=== PATIENT | male | born 1940 | race Caucasian/White ===

== ENCOUNTER 2016-11-05 10:42 | Emergency (ER) | payer OTHER ==
[2016-11-05 10:58] VITALS: TEMP 98.4
[2016-11-05 13:08] LABS: % IMMATURE GRANULYOCYTES 0.4 % (0.0-1.1); ABSOLUTE IMMATURE GRANULOCYTES 0.03 10^3/uL (0.00-0.10); ADD DIFF? NO; ADD MORPH? NO; ADD SCAN? NO; ATYPICAL LYMPHOCYTE FLAG 10 (0-99); FRAGMENT RBC FLAG 0 (0-99); HEMATOCRIT 45.4 % (40.0-51.0); HEMOGLOBIN 16.1 g/dL (13.7-17.5); LEFT SHIFT FLG 0 (0-99); LIPEMIA HEMOLYSIS FLAG 90 (0-99); MEAN CELL HEMOGLOBIN 35.9 pg (27.9-34.1); MEAN CELL HEMOGLOBIN CONCENTR. 35.5 g/dL (32.4-36.7); MEAN CELL VOLUME 101.3 fL (81.5-99.8); MEAN PLATELET VOLUME 10.1 fL (8.7-11.7); PLATELET CLUMPS FLAG 0 (0-99); PLATELET COUNT 157 10^3/uL (150-400); RED BLOOD CELL COUNT 4.48 10^6/uL (4.40-6.38); RED CELL DISTRIBUTION WIDTH 12.4 % (11.5-15.2)
[2016-11-05] MEDS ORDERED: IOPAMIDOL (ISOVUE-300) 100 ML BTL IV ONE (13:10)
[2016-11-05 13:33] LABS: ALANINE AMINOTRANSFERASE 33 IU/L (21-72); ALBUMIN 4.6 g/dL (3.5-5.0); ALKALINE PHOSPHATASE 62 IU/L (38-126); ANION GAP 14 mEq/L (8-16); ASPARTATE AMINOTRANSFERASE 28 IU/L (17-59); BILIRUBIN,TOTAL 1.1 mg/dL (0.1-1.4); BILIRUBIN-CONJUGATED 0.4 mg/dL (0.0-0.5); BILIRUBIN-UNCONJUGATED 0.7 mg/dL (0.0-1.1); CALCIUM 9.8 mg/dL (8.5-10.4); CARBON DIOXIDE 22 mEq/l (22-31); CHLORIDE 107 mEq/L (97-110); CREATININE 0.8 mg/dL (0.7-1.3); GLOMERULAR FILTRATION RATE > 60; GLUCOSE 105 mg/dL (70-100); POTASSIUM 3.9 mEq/L (3.5-5.2); SODIUM 143 mEq/L (134-144); TOTAL PROTEIN 7.5 g/dL (6.3-8.2)
[2016-11-05 13:55] VITALS: BP 130/92; PULSE 94; RESP 18; O2SAT 96
--- NOTE | 2016-11-05 13:56 | EDPHY ---
H & P Time Seen by Provider: 11/05/16 12:25 HPI/ROS: CHIEF COMPLAINT: Right flank pain HISTORY OF PRESENT ILLNESS: 76-year-old male presents to the emergency department by private vehicle complaining of pain in his right groin and right flank for the last 2 weeks. Patient saw his primary care provider and was diagnosed with inguinal hernia. He has a scheduled appointment with Dr. Antony Wilde in 2 weeks. His was concerned because his pain was getting worse and was now radiating up into his right upper abdomen and right flank area. Denies urinary symptoms. Denies hematuria. No nausea or vomiting. No chest pain or difficulty breathing. Denies any other abdominal pain. Denies head injury. Denies pain in upper or lower extremities. REVIEW OF SYSTEMS: Constitutional: No fever, no chills. Eyes: No double or blurry vision. ENT: No sore throat. Respiratory: No cough, no shortness of breath. Cardiac: No chest pain. Gastrointestinal: No abdominal pain, vomiting or diarrhea. Genitourinary: No dysuria. Musculoskeletal: Flank pain as above. No neck pain. Skin: No rashes. Neurological: No headache. Past Medical/Surgical History: Orthopedic surgeries, hypertension, appendectomy, hyperlipidemia, kidney stones , atrial flutter, bladder cancer Social History: Smoking Status: Former smoker Physical Exam: General Appearance: Alert, no distress. Vital signs are stable. No apparent distress. Eyes: Pupils equal and round. Extraocular motions are all intact. ENT: Mouth: Mucous membranes moist. Respiratory: No wheezing, rhonchi, or rales, lungs are clear to auscultation. Cardiovascular: Regular rate and rhythm. Gastrointestinal: Abdomen is soft. He has tenderness with palpation in the right lower quadrant. Also has pain with palpation in the right lateral aspect of the abdomen into the right flank. Positive CVA tenderness on the right. Genitourinary: Circumcised penis. Possible small right inguinal hernia palpated. No signs of incarceration. Left side is normal. Exam performed with at bedside. Neurological: Alert and oriented x 3, cranial nerves II through XII grossly intact Skin: Warm and dry, no rashes. Musculoskeletal: Nontender to palpate along the cervical, thoracic or lumbar spine. Neck is supple. Extremities: Full range of motion and no peripheral edema. Psychiatric: Patient is oriented X 3, there is no agitation. Constitutional: Initial Vital Signs Temperature (C) 36.9 C 11/05/16 10:55 Heart Rate 98 11/05/16 10:55 Respiratory Rate 17 11/05/16 10:55 Blood Pressure 148/100 H 11/05/16 10:55 O2 Sat (%) 94 11/05/16 10:55 O2 Delivery Mode Room Air Allergies/Adverse Reactions: BCG Allergy (Intermediate, Uncoded 11/26/14 14:53) joints swell Home Medications: Medication Instructions Recorded Acetaminophen [Tylenol 325mg (*)] 650 mg PO BID 10/08/14 Herbals/Supplements -Info Only 1 ea PO DAILY 10/08/14 Omeprazole [Prilosec 20 mg] 20 mg PO DAILY 10/08/14 Magnesium Oxide 250 mg PO DAILY 11/06/14 Atorvastatin Calcium [Lipitor 10 10 mg PO DAILY 02/01/15 mg (*)] IRON,CARBONYL [IRON] 45 mg PO DAILY 02/01/15 Losartan/Hydrochlorothiazide 1 tab PO DAILY 02/01/15 [Losartan-Hctz 100-25 mg Tab] Ascorbic Acid [Vitamin C 500 mg 1,000 mg PO DAILY #0 tab 02/02/15 (*)] Aspirin [Aspirin 81mg (*)] 81 mg PO DAILY #0 tab 02/02/15 Metoprolol Succinate 11/05/16 Medical Decision Making - Diagnostics Imaging: CT imaging of the abdomen and pelvis: 1. Fat-containing right inguinal hernia. 2. Diverticulosis coli without diverticulitis or bowel obstruction. 3. Cholelithiasis without biliary ductal dilation. 4. Atherosclerotic aorta without aneurysm. 5. No evidence of diverticulitis, bowel obstruction, or urinary tract obstruction. 6. Enlarged partially calcified prostate gland. This was reported to me by Dr. Toussaint. ED Course/Re-evaluation: 76-year-old male presents with right flank pain and right-sided abdominal pain. His is concerned that he has something other than and inguinal hernia. Laboratory studies are all within normal limits including normal creatinine. CT imaging of the abdomen and pelvis reveals evidence of right inguinal hernia containing fat. No signs of incarceration. Gallstones are present. I encouraged the patient to keep his scheduled appointment with Dr. Antony Wilde. I do not think further imaging or workup is necessary. The patient is comfortable being discharged home. He was instructed to return to the emergency department if he developed worsening pain or any other concerns. Differential Diagnosis: Including but not limited to kidney stone, pyelonephritis, urinary tract infection, carcinoma, hernia - Data Points Laboratory Results: Laboratory Results 11/05/16 12:55 11/05/16 12:55 11/05/16 11/05/16 11/05/16 12:55 12:55 12:50 WBC 7.62 10^3/uL 10^3/uL (3.80-9.50) RBC 4.48 10^6/uL 10^6/uL (4.40-6.38) Hgb 16.1 g/dL g/dL (13.7-17.5) POC Hgb 16.3 gm/dL gm/dL (14.5-17.3) Hct 45.4 % % (40.0-51.0) POC Hct 48 % % (42.8-50.6) MCV 101.3 fL H fL (81.5-99.8) MCH 35.9 pg H pg (27.9-34.1) MCHC 35.5 g/dL g/dL (32.4-36.7) RDW 12.4 % % (11.5-15.2) Plt Count 157 10^3/uL 10^3/uL (150-400) MPV 10.1 fL fL (8.7-11.7) Neut % (Auto) 61.2 % % (39.3-74.2) Lymph % (Auto) 27.6 % % (15.0-45.0) [place] % (Auto) 9.8 % % (4.5-13.0) Eos % (Auto) 0.5 % L % (0.6-7.6) Baso % (Auto) 0.5 % % (0.3-1.7) Nucleat RBC Rel Count 0.0 % % (0.0-0.2) Absolute Neuts (auto) 4.66 10^3/uL 10^3/uL (1.70-6.50) Absolute Lymphs (auto) 2.10 10^3/uL 10^3/uL (1.00-3.00) Absolute Monos (auto) 0.75 10^3/uL 10^3/uL (0.30-0.80) Absolute Eos (auto) 0.04 10^3/uL 10^3/uL (0.03-0.40) Absolute Basos (auto) 0.04 10^3/uL 10^3/uL (0.02-0.10) Absolute Nucleated RBC 0.00 10^3/uL 10^3/uL (0-0.01) Immature Gran % 0.4 % % (0.0-1.1) Immature Gran # 0.03 10^3/uL 10^3/uL (0.00-0.10) POC Sodium 143 mEq/L mEq/L (134-144) Sodium 143 mEq/L mEq/L (134-144) POC Potassium 3.6 mEq/L mEq/L (3.3-5.0) Potassium 3.9 mEq/L mEq/L (3.5-5.2) POC Chloride 106 mEq/L mEq/L (96-108) Chloride 107 mEq/L mEq/L (97-110) Carbon Dioxide 22 mEq/l mEq/l (22-31) Anion Gap 14 mEq/L mEq/L (8-16) POC BUN 22 mg/dL mg/dL (7-23) BUN 21 mg/dL mg/dL (7-23) Creatinine 0.8 mg/dL mg/dL (0.7-1.3) POC Creatinine 0.9 mg/dL mg/dL (0.8-1.5) Estimated GFR > 60 Glucose 105 mg/dL H mg/dL (70-100) POC Glucose 110 mg/dL H mg/dL (70-100) Calcium 9.8 mg/dL mg/dL (8.5-10.4) Total Bilirubin 1.1 mg/dL mg/dL (0.1-1.4) Conjugated Bilirubin 0.4 mg/dL mg/dL (0.0-0.5) Unconjugated Bilirubin 0.7 mg/dL mg/dL (0.0-1.1) AST 28 IU/L IU/L (17-59) ALT 33 IU/L IU/L (21-72) Alkaline Phosphatase 62 IU/L IU/L (38-126) Total Protein 7.5 g/dL g/dL (6.3-8.2) Albumin 4.6 g/dL g/dL (3.5-5.0) Point of Care Test Results: 11/05/16 12:50 POC Sodium 143 POC Potassium 3.6 POC Chloride 106 POC BUN 22 POC Creatinine 0.9 POC Glucose 110 H Departure - Departure Disposition: Home, Routine, Self-Care Clinical Impression: Inguinal hernia, right Abdominal pain Qualifiers: Abdominal location: right lower quadrant Qualified Code(s): R10.31 - Right lower quadrant pain Condition: Good Instructions: Abdominal Pain (ED) Additional Instructions: Abdominal Pain: Return to the Emergency Department immediately for increasing pain, fever, vomiting, or if not completely better in 8-12 hours. Keep scheduled appointment with Dr. Wilde. Referrals: Kimberly Mchugh MD [Primary Care Provider] - As per Instructions Antony Wilde MD [Medical Doctor] - As per Instructions (Keep scheduled appointment)
== END 2016-11-05 14:07 | disposition home or self-care (01) ==
DX: K40.90 Unilateral inguinal hernia, without obstruction or gangrene, not specified as recurrent (principal); I10 Essential (primary) hypertension; Z85.51 Personal history of malignant neoplasm of bladder; Z87.891 Personal history of nicotine dependence; Z79.82 Long term (current) use of aspirin
CPT/HCPCS: 74177; 99285; Q9967; 82947-QW

== ENCOUNTER 2017-01-20 06:30 | Day surgery (SDC) | payer OTHER ==
[2017-01-20] MEDS ORDERED: LIDOCAINE 1% 2 ML INJ ONE (06:48)
[2017-01-20] MEDS ORDERED: LIDOCAINE 1% 5 ML SDV ID PRN (07:00)
[2017-01-20] MEDS ORDERED: LR 1,000 ML IV ONE (07:00)
[2017-01-20] MEDS ORDERED: ceFAZolin 2 GM/DEXTROSE 100 ML IV ONE (07:30)
[2017-01-20] MEDS ORDERED: BUPIVACAINE 0.5% 30 ML SDV ONE (07:34)
[2017-01-20] MEDS ORDERED: fentaNYL 100 MCG/2 ML INJ ONE ×3 (07:50→10:19)
[2017-01-20] MEDS ORDERED: PROPOFOL 200 MG/20 ML VIAL ONE (07:50)
[2017-01-20] MEDS ORDERED: DEXAMETHASONE 4 MG/ML VIAL ONE ×2 (07:50)
[2017-01-20] MEDS ORDERED: ROCURONIUM 50 MG/5 ML VIAL ONE (07:50)
[2017-01-20] MEDS ORDERED: LIDOCAINE 2% 5 ML SDV ONE (07:50)
[2017-01-20] MEDS ORDERED: KETOROLAC 30 MG/1 ML SDV ONE (08:23)
[2017-01-20] MEDS ORDERED: NEOSTIGMINE METHYLSULFATE 5 MG/5 ML SYR ONE (08:42)
[2017-01-20] MEDS ORDERED: ENALAPRILAT DIHYDRATE 1.25 MG/ML VIAL ONE (09:43)
[2017-01-20] MEDS ORDERED: ONDANSETRON 4 MG/2 ML VIAL ONE (10:20)
--- NOTE | 2017-01-20 13:57 | GOP ---
[f rep st] OPERATIVE REPORT DATE OF OPERATION: 01/20/2017 SURGEON: Antony Wilde MD [employer] ATTENDANT: Estephania Foss ANESTHESIOLOGIST: Dr. Hillman. PREOPERATIVE DIAGNOSIS: Right inguinal hernia. POSTOPERATIVE DIAGNOSIS: Bilateral inguinal hernias. PROCEDURE PERFORMED: Laparoscopic bilateral inguinal hernia repairs. FINDINGS: The patient was found to have bilateral indirect lipomas, quite large on the right, small on the left. There were no true indirect sacs. DESCRIPTION OF PROCEDURE: The patient was taken to the operating room where he received satisfactor y general endotracheal anesthesia by Dr. Hillman. He was placed in the supine position and prepped and draped in the usual sterile fashion. An infraumbilical incision was made and dissection was carried down to the rectus sheath, which was incised. A subfascial tunnel was developed in the preperitoneal space that was dissected free with a balloon dissector, which was replaced with a CO2 insufflation trocar. Two other trocars were plac ed in the midline under direct vision. Cedric's ligament was exposed bilaterally. The cords were m obilized bilaterally. The peritoneum was dissected off the cord structures bilaterally and large li pomas were dissected free from the internal ring and reduced. This was true on both sides. The rig ht was much larger than the left. Bilateral Covidien mesh patches were placed over the inguinal jose or. On the right, a split patch was used to pass the limb around the cord structures anchoring the mesh to Cedric's ligament, to the lacunar ligament, the anterior abdominal wall and the lateral abdo keiko wall outside the internal ring. Hemostasis was assured. On the left side, an onlay patch was used anchored in a similar manner. Trocars were removed under direct vision and pneumopreperitoneum was released. Hemostasis was assur ed. The trocar sites were closed with 0 Vicryl for the fascia and 4-0 Monocryl subcuticular stitch for the skin. All layers were infiltrated with 0.5% Marcaine. Blood loss was negligible. The adrianna ent was taken to the recovery room in good condition. /[id number]/MODL
== END 2017-01-20 11:40 | disposition home or self-care (01) ==
LOC: FSGY 06:30
PROVIDERS: ATTEND Surgery
PROC: 0YUA4JZ Supplement Bilateral Inguinal Region with Synthetic Substitute, Percutaneous Endoscopic Approach (ICD-10-PCS; principal; 2017-01-20 08:00)
DX: K40.20 Bilateral inguinal hernia, without obstruction or gangrene, not specified as recurrent (principal); I10 Essential (primary) hypertension; E78.5 Hyperlipidemia, unspecified; Z85.51 Personal history of malignant neoplasm of bladder
CPT/HCPCS: 49650; C1727; C1781; J0690; J1100; J1885; J2405; J2704; J2710; J3010

== ENCOUNTER → 2017-07-21 | Outpatient (CLI) | payer OTHER | LOC: BHFA 09:00 | PROVIDERS: ATTEND Internal Medicine Cardiovascular Disease | DX: I48.91 Unspecified atrial fibrillation (principal); I10 Essential (primary) hypertension | CPT/HCPCS: 78452; 93017; A9500; J2785 ==

== ENCOUNTER → 2018-05-24 | Outpatient (CLI) | payer OTHER | LOC: BMCIMAGING 11:06 | PROVIDERS: ATTEND Internal Medicine Rheumatology | DX: M19.041 Primary osteoarthritis, right hand (principal); M19.012 Primary osteoarthritis, left shoulder; M19.071 Primary osteoarthritis, right ankle and foot; M19.072 Primary osteoarthritis, left ankle and foot ==

== ENCOUNTER 2018-08-18 19:31 | Emergency (ER) | payer OTHER ==
[2018-08-18] MEDS ORDERED: ALTEPLASE 100 MG/100 ML VIAL IV ONE ×3 (19:33→19:56)
[2018-08-18] MEDS ORDERED: LABETALOL HCL 5 MG/ML 20 ML MDV ONE (19:52)
--- NOTE | 2018-08-18 19:52 | EDPHY ---
H & P Stated Complaint: Stroke alert Time Seen by Provider: 08/18/18 19:49 HPI/ROS: CHIEF COMPLAINT: Dense right romeo paresis, expressive aphasia, neglect HISTORY OF PRESENT ILLNESS: The patient is brought in emergently as a stroke alert after he developed a dense right romeo paresis, expressive aphasia and right-sided neglect acutely at 6:00 p.m. This evening. The patient has remote history of atrial flutter. He is not anticoagulated. He does have a history of hypertension. The patient arrives and is nonverbal. He is exhibiting symptoms of a significant left MCA stroke. REVIEW OF SYSTEMS: A comprehensive 10 point review of systems is unobtainable secondary to his altered mental status Source: Family - Personal History Tetanus Vaccine Date: - Medical/Surgical History Hx Asthma: No Hx Chronic Respiratory Disease: No Hx Diabetes: No Hx Cardiac Disease: Yes Hx Renal Disease: No Hx Cirrhosis: No Hx Alcoholism: No Hx HIV/AIDS: No Hx Splenectomy or Spleen Trauma: No Other PMH: Shoulder replacement, ankle replacement, knee repair, appendectomy. HTN, hyperlipidemia back surgey,. bladder cancer, kidney stones. atrial flutter - Social History Smoking Status: Never smoked - Physical Exam Exam: General Appearance: Alert, no distress Eyes: Pupils equal and round no pallor or injection ENT, Mouth: Mucous membranes moist Respiratory: There are no retractions, lungs are clear to auscultation Cardiovascular: Regular rate and rhythm Gastrointestinal: Abdomen is soft and nontender, no masses, bowel sounds normal Neurological: Dense right romeo paresis, romeo neglect, nonverbal, expressive aphasia, NIH stroke scale 23 Skin: Warm and dry, no rashes Musculoskeletal: Neck is supple nontender Extremities: symmetrical, full range of motion Constitutional: Initial Vital Signs Temperature (C) 36.7 C 08/18/18 19:44 Heart Rate 106 H 08/18/18 19:44 Respiratory Rate 28 H 08/18/18 19:44 Blood Pressure 174/114 H 08/18/18 19:44 O2 Sat (%) 96 08/18/18 19:44 O2 Delivery Mode Nasal Cannula O2 (L/minute) 3 Allergies/Adverse Reactions: BCG Allergy (Intermediate, Uncoded 11/26/14 14:53) joints swell Home Medications: Medication Instructions Recorded Acetaminophen [Tylenol 325mg (*)] BID 10/08/14 Herbals/Supplements -Info Only 10/08/14 Omeprazole [Prilosec 20 mg] 10/08/14 Atorvastatin Calcium [Lipitor 10 02/01/15 mg (*)] Losartan/Hydrochlorothiazide 02/01/15 [Losartan-Hctz 100-25 mg Tab] Metoprolol Succinate 11/05/16 Aspirin [Aspirin 81mg (*)] 01/06/17 POTASSIUM Cl 20 MEQ (PREMIX) 01/06/17 TRAMADOL HCL HS 01/06/17 Medical Decision Making - Diagnostics EKG Interpretation: Rhythm strip: Sinus rhythm noted Imaging Results: Imaging Impressions Chest X-Ray 08/18/18 19:37 Impression: Poor inspiration. Recommend a routine upright PA chest when the patient is clinically able, for better evaluation of the cardiothoracic equilibrium, and in order to compare [address] 08/18/18 19:37 Impression: Nothing acute identified. Results called to Dr. Vernon Cole with the patient on the CT table at 7:40 PM. Final results are concordant at 7:45 PM. General information for patients regarding this examination can be found at [email or web address]. If you have questions or comments about this report, please contact me at [phone] (hospital) or [phone] (cell). ED Course/Re-evaluation: Patient is brought to the emergency department emergently as a stroke alert. He arrives with a dense right romeo paresis. Patient was taken for a stat CT scan of the brain which demonstrated no evidence of intracranial hemorrhage. Patient return to the ED and was seen in consultation by [facility]. The patient is a candidate for thrombolytics therapy and received systemic tPA at 7:50 p.m.. Patient did developed mild hypertension after receiving tPA which was treated with 10 mg of IV labetalol. CT angiography of the head and neck has been ordered. Given lack of ICU beds plan is [facility]. 8:30 p.m.: Dr. Alexandra reports there is no evidence of a large vessel occlusion. 8:40 p.m.: Spoke with Dr. Larkin at [facility] who accepts patient for direct admission to the neuro intensive care unit. Patient transferred via [facility] to [facility]. Differential Diagnosis: Differential diagnosis considered includes intracranial hemorrhage, ischemic stroke, migraine variant, Denis's paralysis Other Provider: Critical care time exclusive of procedures and exclusive of the PA's time was 45 minutes, performed by myself, Philip Cole MD. Patient presents to the ED with acute ischemic stroke and received IV thrombolytics therapy. The patient was emergently evaluated for large vessel occlusion. Patient required transfer to a [facility] for further evaluation and management via helicopter transport. - Data Points Laboratory Results: Laboratory Results 08/18/18 19:44 08/18/18 19:44 08/18/18 08/18/18 08/18/18 19:45 19:44 19:44 WBC RBC Hgb POC Hgb 17.0 gm/dL gm/dL (13.7-17.5) Hct POC Hct 50 % % (40-51) MCV MCH MCHC RDW Plt Count MPV Neut % (Auto) Lymph % (Auto) [place] % (Auto) Eos % (Auto) Baso % (Auto) Nucleat RBC Rel Count Absolute Neuts (auto) Absolute Lymphs (auto) Absolute Monos (auto) Absolute Eos (auto) Absolute Basos (auto) Absolute Nucleated RBC Immature Gran % Immature Gran # PT 12.2 SEC SEC (12.0-15.0) INR 0.88 (0.83-1.16) APTT 25.4 SEC SEC (23.0-38.0) POC Sodium 141 mEq/L mEq/L (135-145) Sodium 139 mEq/L mEq/L (135-145) POC Potassium 3.3 mEq/L mEq/L (3.3-5.0) Potassium 3.6 mEq/L mEq/L (3.5-5.2) POC Chloride 104 mEq/L mEq/L (97-110) Chloride 104 mEq/L mEq/L (97-110) Carbon Dioxide 18 mEq/l L mEq/l (22-31) Anion Gap 17 mEq/L H mEq/L (6-14) POC BUN 24 mg/dL H mg/dL (7-23) BUN 25 mg/dL H mg/dL (7-23) Creatinine 1.2 mg/dL mg/dL (0.7-1.3) POC Creatinine 1.2 mg/dL mg/dL (0.7-1.3) Estimated GFR 58 Glucose 129 mg/dL H mg/dL (70-100) POC Glucose 129 mg/dL H mg/dL (70-100) Calcium 9.6 mg/dL mg/dL (8.5-10.4) Total Bilirubin 0.4 mg/dL mg/dL (0.1-1.4) AST 36 IU/L IU/L (17-59) ALT 38 IU/L IU/L (21-72) Alkaline Phosphatase 71 IU/L IU/L (38-126) Total Protein 8.0 g/dL g/dL (6.3-8.2) Albumin 4.8 g/dL g/dL (3.5-5.0) 08/18/18 19:44 WBC 8.15 10^3/uL 10^3/uL (3.80-9.50) RBC 4.52 10^6/uL 10^6/uL (4.40-6.38) Hgb 16.0 g/dL g/dL (13.7-17.5) POC Hgb Hct 46.3 % % (40.0-51.0) POC Hct MCV 102.4 fL H fL (81.5-99.8) MCH 35.4 pg H pg (27.9-34.1) MCHC 34.6 g/dL g/dL (32.4-36.7) RDW 12.2 % % (11.5-15.2) Plt Count 169 10^3/uL 10^3/uL (150-400) MPV 10.1 fL fL (8.7-11.7) Neut % (Auto) 43.2 % % (39.3-74.2) Lymph % (Auto) 43.6 % % (15.0-45.0) [place] % (Auto) 9.9 % % (4.5-13.0) Eos % (Auto) 2.2 % % (0.6-7.6) Baso % (Auto) 0.6 % % (0.3-1.7) Nucleat RBC Rel Count 0.0 % % (0.0-0.2) Absolute Neuts (auto) 3.52 10^3/uL 10^3/uL (1.70-6.50) Absolute Lymphs (auto) 3.55 10^3/uL H 10^3/uL (1.00-3.00) Absolute Monos (auto) 0.81 10^3/uL H 10^3/uL (0.30-0.80) Absolute Eos (auto) 0.18 10^3/uL 10^3/uL (0.03-0.40) Absolute Basos (auto) 0.05 10^3/uL 10^3/uL (0.02-0.10) Absolute Nucleated RBC 0.00 10^3/uL 10^3/uL (0-0.01) Immature Gran % 0.5 % % (0.0-1.1) Immature Gran # 0.04 10^3/uL 10^3/uL (0.00-0.10) PT INR APTT POC Sodium Sodium POC Potassium Potassium POC Chloride Chloride Carbon Dioxide Anion Gap POC BUN BUN Creatinine POC Creatinine Estimated GFR Glucose POC Glucose Calcium Total Bilirubin AST ALT Alkaline Phosphatase Total Protein Albumin Medications Given: Discontinued Medications Alteplase, Recombinant (Activase) 9 mg IV ONCE ONE PRN Reason: Protocol Stop: 08/18/18 19:57 Last Admin: 08/18/18 19:50 Dose: 9 mg Alteplase, Recombinant (Activase) 81 mg IV ONCE ONE PRN Reason: Protocol Stop: 08/18/18 19:57 Last Admin: 08/18/18 19:51 Dose: 81 mg Labetalol HCl (Trandate Injection) 10 mg IVP ONCE ONE Stop: 08/18/18 20:20 Last Admin: 08/18/18 19:49 Dose: 10 mg Point of Care Test Results: Chemistry 08/18/18 19:45 POC Sodium 141 mEq/L mEq/L (135-145) POC Potassium 3.3 mEq/L mEq/L (3.3-5.0) POC Chloride 104 mEq/L mEq/L (97-110) POC BUN 24 mg/dL H mg/dL (7-23) POC Creatinine 1.2 mg/dL mg/dL (0.7-1.3) POC Glucose 129 mg/dL H mg/dL (70-100) ISTAT H&H 08/18/18 19:45 POC Hgb 17.0 gm/dL gm/dL (13.7-17.5) POC Hct 50 % % (40-51) Departure - Departure Disposition: Acute Care Hospital Not [facility] Clinical Impression: Acute ischemic stroke Condition: Critical Referrals: Patient,NotPresent [Unknown] - As per Instructions NIH Stroke Scale Date of Exam: 08/18/18 Time of Exam: 19:51 Level of Consciousness: Alert LOC Questions: Answers None LOC Commands: Performes Neither Correct Best Gaze: Partial Gaze Palsy Facial Palsy: Partial Paralysis Motor Arm-Left: No Drift Motor Arm-Right: No Effort to Martin Motor Leg-Left: Drift Motor Leg-Right: No Movement Limb Ataxis: Present in Two Limbs Sensory: Severe/Total Sensory Loss Best Language: Severe Aphasia Dysarthria: Severe Dysarthria NIH Scale Score: 23
[2018-08-18] MEDS ORDERED: ALTEPLASE 1 MG/ML SYR IV ONE (19:56)
[2018-08-18] MEDS ORDERED: NS 50 ML IV ONE (19:56)
[2018-08-18 20:03] LABS: PLATELET COUNT 169 10^3/uL (150-400)
[2018-08-18 20:11] LABS: INR 0.88 (0.83-1.16); PROTIME(PATIENT) 12.2 SEC (12.0-15.0)
[2018-08-18] MEDS ORDERED: LABETALOL HCL 5 MG/ML 20 ML MDV IVP ONE (20:19)
[2018-08-18 20:56] VITALS: BP 169/104
== END 2018-08-18 21:01 | disposition short-term general hospital (02) ==
LOC: EDUNIT#
DX: I63.9 Cerebral infarction, unspecified (principal); R29.723 NIHSS score 23; I10 Essential (primary) hypertension; E78.5 Hyperlipidemia, unspecified; Z85.51 Personal history of malignant neoplasm of bladder
CPT/HCPCS: 70450; 70496; 70498; 71045; 96365; 96375; 99291; J2997; 82435-PO; 82565-PO; 82947-PO; 84132-PO; 84295-PO; 84520-PO; 85014-PO

== ENCOUNTER 2018-08-30 17:18 | Inpatient (IN) | payer OTHER ==
--- NOTE | 2018-08-30 19:34 | GHP ---
POST ADMISSION PHYSICIAN EVALUATION AND REHABILITATION TREATMENT PLAN. DATE OF ADMISSION: 08/30/2018 REFERRING FACILITY: [facility]. IMPAIRMENT GROUP: 1.2. DATE OF ONSET: 08/18/2018. TIME OF ADMISSION: 1815 hours. REFERRING PHYSICIAN: I do not have that information. CONSULTING PHYSICIANS: He was seen by neurologist, Dr. Alatorre. 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 ETIOLOGIC DIAGNOSIS: Right body involvement (left brain). HISTORY OF PRESENT ILLNESS: This patient initially presented to [facility] on 08/18/2018 with right-sided weakness and aphasia. Head CT was negative for a bleed. He was treated with tPA thrombolysis. He was subsequently transferred to [facility] for post tPA care as there were no beds available in the ICU at [facility]. He was hypertensive on arrival and started on a nicardipine drip. Brain MRI showed a large acute infarct in the left MCA territory with areas of petechial hemorrhage in the left frontal and parietal lobes. Echocardiogram showed an ejection fraction of 65% to 70%. A bubble study ruled out any shunting. A Dobbhoff feeding tube was placed because of his dysphagia and previous aspiration. He was treated for aspiration pneumonia with ceftriaxone and metronidazole. Subsequently, he did better on a modified barium swallow study. He continues on a dysphagia 2 diet with thin liquids. OTHER STUDIES AND LABS: At the [facility] Emergency Department , CBC was overall within normal limits, but his MCV was elevated at 102.4. Coagulation study showed normal PT and PTT. Serum chemistry initially showed an anion gap of 17, and this subsequently resolved. He possibly had some dehydration with a BUN of 25 and a creatinine of 1.2. Blood sugar was elevated at 129, but this was likely not fasting. Liver function tests were normal, and renal function and electrolytes were otherwise normal. CT angiogram was negative for any flow-limiting stenoses, emboli, or thrombi. PRECAUTIONS: He has aspiration precautions. ACTIVE COMORBIDITIES: He has a tier 2 comorbidity of dysphagia. He has a tier 3 comorbidity of hemiparesis. PAST MEDICAL HISTORY: 1. Atrial flutter. 2. Degenerative joint disease bilaterally of the shoulders. 3. Clostridium difficile infection. 4. Right inguinal hernia. 5. Bladder cancer. 6. Kidney stones. PAST SURGICAL HISTORY: He has had an ablation procedure for the atrial flutter. He has had a right herniorrhaphy. He has had a right shoulder replacement, an ankle replacement, knee repair, appendectomy, and back surgery. PRE-HOSPITAL MEDICATIONS: 1. Acetaminophen 325 mg p.o. twice daily. 2. Omeprazole 20 mg p.o. daily. 3. Atorvastatin 10 mg p.o. daily. 4. Losartan/hydrochlorothiazide 100/25 mg 1 p.o. daily. 5. Metoprolol. 6. Aspirin 81 mg daily. 7. Tramadol, perhaps as an old prescription, on a p.r.n. basis. ADMISSION MEDICATIONS: 1. Citalopram 20 mg p.o. daily. 2. Thiamine 100 mg p.o. daily. 3. Metoprolol XR 50 mg p.o. daily. 4. Losartan 100 mg p.o. daily. 5. Atorvastatin 80 mg p.o. at bedtime. 6. Amlodipine 10 mg p.o. daily. 7. Apixaban 5 mg p.o. twice daily. ALLERGIES: There is an allergy listed to bacille calmette andrew. PSYCHOSOCIAL HISTORY: He is . He lives with his . He has local children who are involved. 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 He is a nonsmoker. He enjoys several drinks most every day. REVIEW OF SYSTEMS: Somewhat limited due to expressive aphasia. He has some right shoulder pain, and apparently the right shoulder pain resulted from a difficult transfer while in the hospital. He has a depressed mood. He denies pain otherwise. He denies cough or dyspnea. He denies nausea, vomiting, constipation, or diarrhea. He reports that his bowels have been moving. Otherwise to the extent that it could be conducted, a 10-point review of systems was negative. His reports that he sleeps well at home and does not snore. However, he has had poor sleep while in the hospital. PHYSICAL EXAMINATION: VITAL SIGNS: Vitals are not yet available in the chart. GENERAL: This is a well-nourished, well-developed, obese-appearing man lying in bed, dressed in street clothes, cooperative, and in no acute distress. HEENT : Extraocular movements are intact. Pupils are equal, round, and reactive to light. Mucous membranes are moist. Dentition is in poor condition with several missing teeth. He has a crowded airway, Mallampati class 4. NECK: Supple. HEART: There is a regular rate and rhythm with no murmurs, rubs, or gallops. LUNGS: Clear to auscultation bilaterally. ABDOMEN: Soft, nontender , and nondistended with normoactive bowel sounds and no hepatosplenomegaly. EXTREMITIES: There is no cyanosis, clubbing, or edema. Radial and dorsalis pedis pulses are 2+ bilaterally. NEUROLOGIC: He is alert. Orientation is not tested due to expressive aphasia. Cranial nerves 2 through 12 are grossly intact, but for a right facial droop. He otherwise has normal pupillary response and extraocular movements. Palate elevates symmetrically. He has normal sensation in his face. He has a shoulder shrug. However there is a right facial droop noted especially at the angle of the mouth. Motor strength on the right shows flaccid paralysis of the right upper extremity, but normal strength of the right lower extremity. On the left side, his strength is normal. Sensation is absent to light touch on the right upper extremity and is normal on the right lower extremity. It does not extinguish with double simultaneous stimulation. CURRENT LEVEL OF FUNCTION: Per the preadmission screen. Regarding diet, feeding, and swallowing, he was on a dysphagia 2 diet, requiring one-to-one assist with medications in puree and the head of bed at 90 degrees. He was not to be using straws. Bed mobility required maximal assist. Transfers required maximal assist for [id number] with a Heydi Stedy, and he tended to list to the right side. Static seated balance required moderate assist initially and then contact guard assist, with intermittent moderate assist due to fatigue. Regarding endurance, it was noted that he required rest breaks due to fatigue, and he had decreased activity tolerance due to right shoulder pain. Regarding communication, he had global aphasia, expressive and receptive. He could follow one-step commands. On today's exam, he appears to have good comprehension of language, but has expressive aphasia. Otherwise, there are no changes from the preadmission screen. IMPRESSION: This is a 78-year-old man, who suffered a large left middle cerebral artery cerebrovascular accident. He has right upper extremity hemiparesis and expressive aphasia. He has considerable debility, with right shoulder pain contributing. He received tissue plasminogen activator thrombolysis, and it is unclear how much improvement he may have had after that. He had titration of medications for hypertension and dyslipidemia. He was initially treated with aspirin and subsequently has been started on apixaban as it is considered likely that it was a cardioembolic source of his stroke, especially with the distribution of his stroke and his history of atrial flutter. He has dysphagia as well, though he has been cleared for thin liquids, but requires a dysphagia 2 texture for solid foods. He is appropriate for inpatient rehabilitation where he will benefit from physical therapy and occupational therapy to optimize his mobility and activities of daily living, and speech and language pathology regarding communication and swallowing. His goal is to complete a rehabilitation stay and then discharge home with family support and supportive services as needed. Family are willing to hire help. For a safe discharge, it is anticipated that he will advance to supervision level with activities of daily living and mobility with the use of the least restrictive device. He will demonstrate insight into his deficits to be able to carry over compensatory strategies for safety with ADLs and mobility , and for swallowing and cognition. There will need to be patient family training to assist with his care. He will have therapy with Physical Therapy, Occupational Therapy, and Speech and Language Pathology for 60 minutes per day for each discipline on 5 to 7 days of the week. His expected duration of stay is 14 to 21 days. It is anticipated that upon discharge, he will continue to benefit from home health services including nursing, CHORAL TEACHER, Social Work, OT, and PT. Additionally, he will likely benefit from a stroke support group. PLAN: 1. Left MCA CVA on 08/18/2018 with right hemiparesis. PT and OT to optimize mobility and activities of daily living. 2. Expressive aphasia and possible component of receptive aphasia, to be evaluated further by Speech and Language Pathology. 3. Dysphagia. Continue dysphagia 2 diet. Further evaluation per Speech and Language Pathology. 4. Hypertension. Continue medications with amlodipine 10 mg daily, losartan 100 mg daily, and metoprolol XR 50 mg daily. Blood pressure will be monitored, and medications will be adjusted as needed. 5. Dyslipidemia. Continue atorvastatin at 80 mg p.o. at bedtime. 6. Secondary prevention of CVA, with likely atrial fibrillation or flutter as an etiology. Continue apixaban 5 mg twice daily. 7. Depressed mood and facilitation of neuro recovery. We will continue citalopram as it was begun in the hospital rather than changing to fluoxetine, which would be in accord with the FLAME trial. 8. History of alcohol abuse and possible dependence. He is far enough out that there is no longer any concern for alcohol withdrawal. He has macrocytosis , which may be due to alcohol effect, but I will check a CBC in the morning and will also check a B12 level. He has been treated with thiamine, which will be continued until he is taking all of his nutritional needs through his regular diet. 9. Right shoulder pain with possible injury in the hospital. He had x-ray showing no bony effects, so presumably it is a soft tissue injury. I have scheduled acetaminophen at 1000 mg q.8 h. as a first step to treat his pain and facilitate his participation in therapies. Will also order tramadol 50 mg q.6 hours p.r.n. 10. Question of hydration status. I have ordered a BMP for the morning. 11. Prophylaxis. He is on apixaban due to likely atrial fibrillation, and this will suffice for DVT prophylaxis. He has no history of GI bleeding, and he is no longer critically ill. Will not initiate a proton pump inhibitor or H2 wen. 12. Followup. His reports that his primary care provider is Kimberly Mchugh, whom he can see after discharge. He was seen by Dr. Alatorre of [facility], and we will determine during his stay whether he should follow up with [facility] or with neurologists in [place]. /[id number]/MODL MTDD
[2018-08-30] MEDS: APIXABAN 5 MG TAB PO SCH (20:09)
[2018-08-30] MEDS: ACETAMINOPHEN 500 MG TAB PO SCH (20:09)
[2018-08-30] MEDS: ATORVASTATIN CALCIUM 40 MG TAB PO SCH (20:10)
[2018-08-30] MEDS: traMADol 50 MG TAB PO PRN (22:15)
[2018-08-31] MEDS: traMADol 50 MG TAB PO PRN ×3 (04:10→21:08)
[2018-08-31] MEDS: ACETAMINOPHEN 500 MG TAB PO SCH ×3 (05:31→21:10)
[2018-08-31 08:06] LABS: PLATELET COUNT 198 10^3/uL (150-400)
[2018-08-31] MEDS: LOSARTAN POTASSIUM 50 MG TAB PO SCH (08:10)
[2018-08-31] MEDS: CITALOPRAM 20 MG TAB PO SCH (08:12)
[2018-08-31] MEDS: THIAMINE HCL 100 MG TAB PO SCH (08:12)
[2018-08-31] MEDS: METOPROLOL SUCCINATE XR 50 MG TAB PO SCH (08:12)
[2018-08-31] MEDS: APIXABAN 5 MG TAB PO SCH ×2 (08:12→21:07)
--- NOTE | 2018-08-31 13:47 | SOAPPROG ---
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 * PT and OT to optimize mobility and activities of daily living. Expressive aphasia, severe and receptive aphasia, moderate * Continue Speech and Language Pathology. Dysphagia. Continue dysphagia 2 diet. Further evaluation per Speech and Language Pathology. Hypertension. Continue medications with amlodipine 10 mg daily, losartan 100 mg daily, and metoprolol XR 50 mg daily. Blood pressure will be monitored, and medications will be adjusted as needed. Dyslipidemia. Continue atorvastatin at 80 mg p.o. at bedtime. Secondary prevention of CVA, with likely atrial fibrillation or flutter as an etiology. Continue apixaban 5 mg twice daily. Depressed mood and facilitation of neuro recovery. We will continue citalopram as it was begun in the hospital rather than changing to fluoxetine, which would be in accord with the FLAME trial. Insomnia? He indicates difficulty falling asleep and nurse reported frequent awakenings to urinate. Postvoid residual was low at 85 so unclear if he would benefit from on alpha wen. Start melatonin 3 mg at HS on 08/31/2017. Continue to monitor. History of alcohol abuse and possible dependence. He is far enough out that there is no longer any concern for alcohol withdrawal. Macrocytosis him this improved compared to labs when he 1st presented at [facility] on . B12 levels normal.. He has been treated with thiamine, which will be continued until he is taking all of his nutritional needs through his regular diet. Right shoulder pain with possible injury in the hospital. He had x-ray showing no bony effects, so presumably it is a soft tissue injury. * Began scheduled acetaminophen at 1000 mg q.8 h. and tramadol 50 mg q.6 hours p.r.n. on 08/30/2017. * Added scheduled tramadol 50 mg three times daily starting 08/31/2017. Question of hydration status. BMP consistent with mild dehydration with BUN to creatinine ratio greater than 20-1 on 08/31/2018. Also has mild hypokalemia. Hypokalemia. Check serum magnesium and urinary potassium. Initiate potassium chloride 20 mEq daily starting 08/31/2017.. Prophylaxis. He is on apixaban due to likely atrial fibrillation, and this will suffice for DVT prophylaxis. He has no history of GI bleeding, and he is no longer critically ill. Will not initiate a proton pump inhibitor or H2 wen. Followup. His reports that his primary care provider is Kimberly Mchugh, whom he can see after discharge. He was seen by Dr. Alatorre of [facility], and we will determine during his stay whether he should follow up with [facility] or with neurologists in [place]. 08/31/18 14:32 Subjective: Had sleep issues overnight. he endorses that he had difficulty falling asleep. Nurse reports frequent awakenings to urinate. Has B shoulder pain. No cough or dyspnea. Objective: Vital Signs Temp Pulse Resp BP Pulse Ox 36.8 C 84 18 149/88 H 93 08/31/18 05:20 08/31/18 09:30 08/31/18 09:30 08/31/18 09:30 08/31/18 09:30 Laboratory Results 08/31/18 06:00 08/31/18 06:00 08/30/18 08/31/18 09/01/18 05:59 05:59 05:59 Intake Total 340 Output Total 475 50 Balance -135 -50 Physical Exam - Physical Exam General Appearance: WD/WN, alert, no apparent distress, obese Respiratory: normal breath sounds, crackles (Left lower lower lobe which clear after deep inspiration), No rhonchi, No wheezing Cardiac/Chest: regular rate, rhythm, JVD, No edema, No diastolic murmur, No systolic murmur Skin: normal color, warm/dry Neuro/Psych: alert, normal mood/affect, oriented x 3, aphasia (Expressive), motor weakness (Right upper extremity) ICD10 Worksheet Patient Problems: Problems Problem Status Onset Atrial flutter Acute Chest pain Acute atrial flutter Acute
--- NOTE | 2018-08-31 13:47 | PDOREHIP ---
Admission [facility] - Admission - 3 Day Assessment Period Admission Date/Day 1: 08/30/18 Day 2: 08/31/18 Day 3: 09/01/18 - Active Diagnoses Comorbidities and Co-existing Conditions at Admission: 82602. None of the Above - Skin Conditions Unhealed Pressure Ulcer (1 or more/Stage 1 or >)-Admission: 0. No # Stage 1 Pressure Ulcers-Admission: 0 # Stage 2 Pressure Ulcers-Admission: 0 # Stage 3 Pressure Ulcers-Admission: 0 # Stage 4 Pressure Ulcers-Admission: 0 # Unstageable Pressure Ulcers (Non-remove Dress)-Admission: 0 # Unstageable Pressure Ulcers (Slough/Eschar)-Admission: 0 # Unstageable Pressure Ulcers (Deep Tissue Injury)-Admission: 0
[2018-08-31] MEDS: traMADol 50 MG TAB PO SCH ×2 (16:36→21:15)
[2018-08-31] MEDS ORDERED: POTASSIUM CL 10 MEQ TAB PO SCH (17:00)
[2018-08-31] MEDS: MELATONIN 3 MG TAB PO SCH ×3 (21:07→21:20)
[2018-08-31] MEDS: ATORVASTATIN CALCIUM 40 MG TAB PO SCH (21:10)
[2018-09-01] MEDS: traMADol 50 MG TAB PO PRN ×2 (01:16→21:02)
[2018-09-01] MEDS: ACETAMINOPHEN 500 MG TAB PO SCH ×3 (05:05→21:03)
[2018-09-01] MEDS: traMADol 50 MG TAB PO SCH ×4 (07:49→21:02)
[2018-09-01] MEDS: CITALOPRAM 20 MG TAB PO SCH (07:50)
[2018-09-01] MEDS: APIXABAN 5 MG TAB PO SCH ×2 (07:50→21:03)
[2018-09-01] MEDS: THIAMINE HCL 100 MG TAB PO SCH (07:50)
[2018-09-01] MEDS: METOPROLOL SUCCINATE XR 50 MG TAB PO SCH (07:50)
[2018-09-01] MEDS: LOSARTAN POTASSIUM 50 MG TAB PO SCH (07:51)
[2018-09-01] MEDS ORDERED: POTASSIUM CL 20 MEQ/15 ML UDCUP PO SCH (09:00)
--- NOTE | 2018-09-01 11:32 | SOAPPROG ---
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 * Initial functional independence measure is 25 on 09/01/2017. Requires 2 assist per nursing staff to transfer with Heydi study. Moderate assist of 2 for squat pivot transfer with therapy staff. Requires standby assist for seated balance. Upper body dressing requires maximal to total assist, lower body dressing requires total assist. Was able to stand at the rail with assistance of 2 person, moderate. * Continue PT and OT to optimize mobility and activities of daily living. Expressive aphasia, severe and receptive aphasia, moderate * Continue Speech and Language Pathology. Dysphagia. Continue dysphagia 2 diet. * Has right oral pocketing and leak at the right labial seal. Eating is slow and laborious. * Continue Speech and Language Pathology. Hypertension. Continue medications with amlodipine 10 mg daily, losartan 100 mg daily, and metoprolol XR 50 mg daily. Blood pressure will be monitored, and medications will be adjusted as needed. Hypokalemia. Normal magnesium. Minimal improvement after a single dose of potassium 20 mEq yesterday evening, 08/31/2018. Will increase to twice daily. * Hypertension and hypokalemia with urinary potassium loss raises the possibility of hyperaldosteronism. Sample has been drawn for plasma renin activity and aldosterone levels, which are send-out tests and will be available in several days. * Consider initiation of spironolactone. First want to be more confident regarding fluid intake. Right shoulder pain with possible injury in the hospital. He had x-ray showing no bony defects, so presumably it is a soft tissue injury. History of a shoulder replacement * Began scheduled acetaminophen at 1000 mg q.8 h. and tramadol 50 mg q.6 hours p.r.n. on 08/30/2017. * Added scheduled tramadol 50 mg three times daily starting 08/31/2017. * Initiate diclofenac gel, 09/01/2017. Dyslipidemia. Continue atorvastatin at 80 mg p.o. at bedtime. Secondary prevention of CVA, with likely atrial fibrillation or flutter as an etiology. Continue apixaban 5 mg twice daily. Depressed mood and facilitation of neuro recovery. We will continue citalopram as it was begun in the hospital rather than changing to fluoxetine, which would be in accord with the FLAME trial. Insomnia? He indicates difficulty falling asleep and nurse reported frequent awakenings to urinate. Postvoid residual was low at 85 so unclear if he would benefit from on alpha wen. Start melatonin 3 mg at HS on 08/31/2017. Continue to monitor. * Check urinalysis. History of alcohol abuse and possible dependence. He is far enough out that there is no longer any concern for alcohol withdrawal. Macrocytosis him this improved compared to labs when he 1st presented at [facility] on . B12 levels normal.. He has been treated with thiamine, which will be continued until he is taking all of his nutritional needs through his regular diet. Question of hydration status. BMP consistent with mild dehydration with BUN to creatinine ratio greater than 20-1 on 08/31/2018. Also has mild hypokalemia. Prophylaxis. He is on apixaban due to likely atrial fibrillation, and this will suffice for DVT prophylaxis. He has no history of GI bleeding, and he is no longer critically ill. Will not initiate a proton pump inhibitor or H2 wen. DISPOSITION: Attended staffing, 15 min. Discussed with case management, dietitian, nursing, PT, OT, LEAD PHP DEVELOPER. Lives in a 3 level home with his . There is no better more bathroom on the main level. They would consider adding stair lifts. Good family support. Very significant debility. Expected length of stay 4-6 weeks, with tentative discharge 10/11/2018. If he fails to progress he might be more appropriate for a SNF. Followup. His reports that his primary care provider is Kimberly Mchugh, whom he can see after discharge. He was seen by Dr. Alatorre of [facility], and we will determine during his stay whether he should follow up with [facility] or with neurologists in [place]. 09/01/18 11:13 Subjective: Poor sleep last night. He had frequent urination. Has right shoulder pain. Staff find him in a low mood today and he is less than fully participatory in therapies. Objective: Vital Signs Temp Pulse Resp BP Pulse Ox 37.1 C 89 17 149/88 H 92 09/01/18 06:11 09/01/18 07:50 09/01/18 06:11 09/01/18 07:51 09/01/18 06:11 Laboratory Results 08/31/18 06:00 09/01/18 09:15 0109/01/18 09/02/18 05:59 05:59 05:59 Intake Total 540 980 Output Total 475 800 50 Balance 65 180 -50 - Time Spent With Patient Time Spent With Patient: Greater than 35 min floor time today, including more than 50% of time in coordination of care during staffing meeting, and counseling patient. Physical Exam - Physical Exam General Appearance: WD/WN, alert, no apparent distress, obese Respiratory: normal breath sounds, crackles (Bibasilar), No rhonchi, No wheezing Cardiac/Chest: regular rate, rhythm, No edema, No diastolic murmur, No systolic murmur Skin: normal color, warm/dry Extremities: other (Right shoulder with atrophy of deltoid and possible subluxation.) Neuro/Psych: alert, aphasia (Expressive), motor weakness (Left upper extremity flaccid paralysis) ICD10 Worksheet Patient Problems: Problems Problem Status Onset Atrial flutter Acute Chest pain Acute atrial flutter Acute
[2018-09-01] MEDS: POTASSIUM CL 10 MEQ TAB PO SCH ×2 (12:01→16:25)
[2018-09-01] MEDS: DICLOFENAC SODIUM 1% 100 GM GEL TP SCH ×3 (14:43→21:03)
[2018-09-01] MEDS: ATORVASTATIN CALCIUM 40 MG TAB PO SCH (21:03)
[2018-09-01] MEDS: MELATONIN 3 MG TAB PO SCH (21:03)
[2018-09-02] MEDS: DICLOFENAC SODIUM 1% 100 GM GEL TP SCH ×4 (06:21→20:31)
[2018-09-02] MEDS: ACETAMINOPHEN 500 MG TAB PO SCH ×3 (06:21→20:25)
[2018-09-02] MEDS: THIAMINE HCL 100 MG TAB PO SCH (07:57)
[2018-09-02] MEDS: POTASSIUM CL 10 MEQ TAB PO SCH ×2 (07:57→17:31)
[2018-09-02] MEDS: LOSARTAN POTASSIUM 50 MG TAB PO SCH (07:57)
[2018-09-02] MEDS: METOPROLOL SUCCINATE XR 50 MG TAB PO SCH (07:57)
[2018-09-02] MEDS: APIXABAN 5 MG TAB PO SCH ×2 (07:57→20:25)
[2018-09-02] MEDS: traMADol 50 MG TAB PO SCH ×3 (07:58→20:25)
[2018-09-02] MEDS: CITALOPRAM 20 MG TAB PO SCH (07:59)
[2018-09-02] MEDS: traMADol 50 MG TAB PO PRN (10:36)
[2018-09-02] MEDS ORDERED: ONDANSETRON DISINTEGRATING 4 MG TAB PO ONE (11:39)
[2018-09-02] MEDS ORDERED: BISACODYL 10 MG SUPP PR PRN (13:15)
--- NOTE | 2018-09-02 13:20 | SOAPPROG ---
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 * Initial functional independence measure is 25 on 09/01/2017. Requires 2 assist per nursing staff to transfer with Heydi study. Moderate assist of 2 for squat pivot transfer with therapy staff. Requires standby assist for seated balance. Upper body dressing requires maximal to total assist, lower body dressing requires total assist. Was able to stand at the rail with assistance of 2 person, moderate. * Continue PT and OT to optimize mobility and activities of daily living. Expressive aphasia, severe and receptive aphasia, moderate * Continue Speech and Language Pathology. Dysphagia. Continue dysphagia 2 diet. * Has right oral pocketing and leak at the right labial seal. Eating is slow and laborious. * Continue Speech and Language Pathology. Hypertension. Continue medications with amlodipine 10 mg daily, losartan 100 mg daily, and metoprolol XR 50 mg daily. Blood pressure will be monitored, and medications will be adjusted as needed. Hypokalemia. Normal magnesium. Minimal improvement after a single dose of potassium 20 mEq yesterday evening, 08/31/2018. Will increase to twice daily. * Hypertension and hypokalemia with urinary potassium loss raises the possibility of hyperaldosteronism. Sample was drawn 09/01/2018 for plasma renin activity and aldosterone levels, which are send-out tests and will be available in several days. * Consider initiation of spironolactone. First want to be more confident regarding fluid intake. * Repeat BMP 09/03/2018. Right shoulder pain with possible injury in the hospital. He had x-ray showing no bony defects, so presumably it is a soft tissue injury. History of a shoulder replacement * Began scheduled acetaminophen at 1000 mg q.8 h. and tramadol 50 mg q.6 hours p.r.n. on 08/30/2017. * Added scheduled tramadol 50 mg three times daily starting 08/31/2017. * Initiate diclofenac gel, 09/01/2017. Nausea, 09/02/2018. May be related to RODRIGUEZ and poor sleep. May be due to tramadol , though he has tolerated in the past. May be related to constipation with small bowel movement today, and no bowel movements for several days previous. Will initiate bowel program with senna twice daily and polyethylene glycol daily , which he will likely need as long as he is taking tramadol. Insomnia? He indicates difficulty falling asleep and nurse reported frequent awakenings to urinate. Postvoid residual was low at 85 so unclear if he would benefit from on alpha wen. Start melatonin 3 mg at HS on 08/31/2017. Continue to monitor. * Urinalysis is normal. * Will initiate low-dose oxybutynin 2.5 mg at HS starting 09/02/2018. Will initiate scheduled toileting q.4 hours including up once at night starting 2018. Dyslipidemia. Continue atorvastatin at 80 mg p.o. at bedtime. Secondary prevention of CVA, with likely atrial fibrillation or flutter as an etiology. Continue apixaban 5 mg twice daily. Depressed mood and facilitation of neuro recovery. We will continue citalopram as it was begun in the hospital rather than changing to fluoxetine, which would be in accord with the FLAME trial. History of alcohol abuse and possible dependence. He is far enough out that there is no longer any concern for alcohol withdrawal. Macrocytosis him this improved compared to labs when he 1st presented at [facility] on . B12 levels normal.. He has been treated with thiamine, which will be continued until he is taking all of his nutritional needs through his regular diet. Question of hydration status. BMP consistent with mild dehydration with BUN to creatinine ratio greater than 20-1 on 08/31/2018. Also has mild hypokalemia. Prophylaxis. He is on apixaban due to likely atrial fibrillation, and this will suffice for DVT prophylaxis. He has no history of GI bleeding, and he is no longer critically ill. Will not initiate a proton pump inhibitor or H2 wen. DISPOSITION: Lives in a 3 level home with his . There is no better more bathroom on the main level. They would consider adding stair lifts. Good family support. Very significant debility. Expected length of stay 4-6 weeks, with tentative discharge 10/11/2018. If he fails to progress he might be more appropriate for a SNF. Followup. His reports that his primary care provider is Kimberly Mchugh, whom he can see after discharge. He was seen by Dr. Alatorre of [facility], and we will determine during his stay whether he should follow up with [facility] or with neurologists in [place]. 09/02/18 13:11 Subjective: Has headache this morning. Had poor sleep overnight with multiple interruptions to urinate. Nurse reported he his volumes were small and urination is frequent though when he was transferred to the commode he urinated 200 cc. Objective: Vital Signs Temp Pulse Resp BP Pulse Ox 36.7 C 87 16 146/90 H 87 L 09/02/18 07:43 09/02/18 07:57 09/02/18 07:43 09/02/18 07:57 09/02/18 07:43 Laboratory Results 08/31/18 06:00 09/01/18 09:15 09/01/18 09/02/18 09/03/18 05:59 05:59 05:59 Intake Total 980 1650 240 Output Total 800 225 250 Balance 180 1425 -10 Physical Exam - Physical Exam General Appearance: WD/WN, alert, no apparent distress, obese Respiratory: normal breath sounds, No crackles, No rhonchi, No wheezing Cardiac/Chest: regular rate, rhythm, No diastolic murmur, No systolic murmur Skin: normal color, warm/dry Neuro/Psych: alert, normal mood/affect, aphasia, motor weakness (Right upper and lower extremities) ICD10 Worksheet Patient Problems: Problems Problem Status Onset Atrial flutter Acute Chest pain Acute atrial flutter Acute
[2018-09-02] MEDS: SENNOSIDES 1 TAB PO SCH (20:25)
[2018-09-02] MEDS: MELATONIN 3 MG TAB PO SCH (20:25)
[2018-09-02] MEDS: ATORVASTATIN CALCIUM 40 MG TAB PO SCH (20:25)
[2018-09-03] MEDS: traMADol 50 MG TAB PO SCH ×3 (04:46→20:34)
[2018-09-03] MEDS: ACETAMINOPHEN 500 MG TAB PO SCH ×3 (04:46→20:33)
[2018-09-03] MEDS: DICLOFENAC SODIUM 1% 100 GM GEL TP SCH ×4 (04:47→20:34)
[2018-09-03] MEDS: POTASSIUM CL 10 MEQ TAB PO SCH ×2 (08:08→17:19)
[2018-09-03] MEDS: CITALOPRAM 20 MG TAB PO SCH (08:10)
[2018-09-03] MEDS: SENNOSIDES 1 TAB PO SCH ×2 (08:10→20:34)
[2018-09-03] MEDS: POLYETHYLENE GLYCOL 3350 17 GM PKT PO SCH ×2 (08:10→08:22)
[2018-09-03] MEDS: THIAMINE HCL 100 MG TAB PO SCH (08:10)
[2018-09-03] MEDS: APIXABAN 5 MG TAB PO SCH ×2 (08:11→20:33)
[2018-09-03] MEDS: METOPROLOL SUCCINATE XR 50 MG TAB PO SCH (08:15)
[2018-09-03] MEDS: LOSARTAN POTASSIUM 50 MG TAB PO SCH (08:16)
--- NOTE | 2018-09-03 11:05 | SOAPPROG ---
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 * Initial functional independence measure is 25 on 09/01/2017. Requires 2 assist per nursing staff to transfer with Heydi Hollis. Moderate assist of 2 for squat pivot transfer with therapy staff. Requires standby assist for seated balance. Upper body dressing requires maximal to total assist, lower body dressing requires total assist. Was able to stand at the rail with assistance of 2 person, moderate. * Continue PT and OT to optimize mobility and activities of daily living. Expressive aphasia, severe and receptive aphasia, moderate * Continue Speech and Language Pathology. Dysphagia. Continue dysphagia 2 diet. * Has right oral pocketing and leak at the right labial seal. Eating is slow and laborious. * Continue Speech and Language Pathology. Hypertension. Continue medications with amlodipine 10 mg daily, losartan 100 mg daily, and metoprolol XR 50 mg daily. Blood pressure will be monitored, and medications will be adjusted as needed. Hypokalemia. Normal magnesium. Minimal improvement after a single dose of potassium 20 mEq yesterday evening, 08/31/2018. Will increase to twice daily. * Hypertension and hypokalemia with urinary potassium loss raises the possibility of hyperaldosteronism. However plasma aldosterone concentration is below the detectable limit and plasma renin activity is slightly high, ruling out primary aldosteronism. Consider renovascular hypertension. * Consider initiation of spironolactone. First want to be more confident regarding fluid intake. BMP consistent with mild dehydration with BUN to creatinine ratio greater than 20-1 on 08/31/2018. * Attempted repeat BMP 09/03/2018. He is a difficult stick and the specimen was hemolyzed. Will try again tomorrow morning, with point of care machine if it can be brought over from [facility]. Right shoulder pain with possible injury in the hospital. He had x-ray showing no bony defects, so presumably it is a soft tissue injury. History of a shoulder replacement * Began scheduled acetaminophen at 1000 mg q.8 h. and tramadol 50 mg q.6 hours p.r.n. on 08/30/2017. * Added scheduled tramadol 50 mg three times daily starting 08/31/2017. * Initiate diclofenac gel, 09/01/2017. Nausea, 09/02/2018. May be related to RODRIGUEZ and poor sleep. May be due to tramadol , though he has tolerated in the past. May be related to constipation with small bowel movement today, and no bowel movements for several days previous. Will initiate bowel program with senna twice daily and polyethylene glycol daily , which he will likely need as long as he is taking tramadol. Insomnia? He indicates difficulty falling asleep and nurse reported frequent awakenings to urinate. Postvoid residual was low at 85 so unclear if he would benefit from on alpha wen. Start melatonin 3 mg at HS on 08/31/2017. Continue to monitor. * Urinalysis is normal. * Initiated low-dose oxybutynin 2.5 mg at HS starting 09/02/2018. Initiated scheduled toileting q.4 hours including up once at night starting 09/02/2018. Dyslipidemia. Continue atorvastatin at 80 mg p.o. at bedtime. Secondary prevention of CVA, with likely atrial fibrillation or flutter as an etiology. Continue apixaban 5 mg twice daily. Depressed mood and facilitation of neuro recovery. Continue citalopram as it was begun in the hospital rather than changing to fluoxetine, which would be in accord with the FLAME trial. History of alcohol abuse and possible dependence. He is far enough out that there is no longer any concern for alcohol withdrawal. Macrocytosis him this improved compared to labs when he 1st presented at [facility] on . B12 levels normal.. He has been treated with thiamine, which will be continued until he is taking all of his nutritional needs through his regular diet. Prophylaxis. He is on apixaban due to likely atrial fibrillation, and this will suffice for DVT prophylaxis. He has no history of GI bleeding, and he is no longer critically ill. Will not initiate a proton pump inhibitor or H2 wen. DISPOSITION: Lives in a 3 level home with his . There is no better more bathroom on the main level. They would consider adding stair lifts. Good family support. Very significant debility. Expected length of stay 4-6 weeks, with tentative discharge 10/11/2018. If he fails to progress he might be more appropriate for a SNF. Followup. His reports that his primary care provider is Kimberly Mchugh, whom he can see after discharge. He was seen by Dr. Alatorre of [facility], and we will determine during his stay whether he should follow up with [facility] or with neurologists in [place]. 09/03/18 11:26 09/03/18 15:39 Subjective: Nurse reports that he was up 3-4 times to urinate through the night. At approximately 2:00 a.m. He had a bowel movement as well as 200 cc urination. Nurse says that reports he is usually up about 3 times at night prior to his stroke. Objective: Vital Signs Temp Pulse Resp BP Pulse Ox 36.5 C 84 16 145/95 H 95 09/03/18 05:12 09/03/18 08:15 09/03/18 05:12 09/03/18 08:16 09/03/18 05:12 Laboratory Results 08/31/18 06:00 09/01/18 09:15 09/02/18 09/03/18 09/04/18 05:59 05:59 05:59 Intake Total 1650 1220 360 Output Total 225 880 200 Balance 1425 340 160 Physical Exam - Physical Exam General Appearance: WD/WN, alert, no apparent distress Respiratory: No respiratory distress, No accessory muscle use Skin: normal color, warm/dry Neuro/Psych: alert, normal mood/affect, motor weakness (Right upper and lower extremities) ICD10 Worksheet Patient Problems: Problems Problem Status Onset Atrial flutter Acute Chest pain Acute atrial flutter Acute
[2018-09-03] MEDS: traMADol 50 MG TAB PO PRN (11:39)
[2018-09-03] MEDS: ATORVASTATIN CALCIUM 40 MG TAB PO SCH (20:33)
[2018-09-03] MEDS: OXYBUTYNIN CHLORIDE 5 MG TAB PO SCH (20:34)
[2018-09-03] MEDS: MELATONIN 3 MG TAB PO SCH (20:34)
[2018-09-04] MEDS: traMADol 50 MG TAB PO PRN (05:28)
[2018-09-04] MEDS: ACETAMINOPHEN 500 MG TAB PO SCH ×3 (05:28→19:52)
[2018-09-04] MEDS: DICLOFENAC SODIUM 1% 100 GM GEL TP SCH ×4 (05:28→19:53)
[2018-09-04] MEDS: LOSARTAN POTASSIUM 50 MG TAB PO SCH (08:51)
[2018-09-04] MEDS: THIAMINE HCL 100 MG TAB PO SCH (08:52)
[2018-09-04] MEDS: CITALOPRAM 20 MG TAB PO SCH (08:52)
[2018-09-04] MEDS: POTASSIUM CL 10 MEQ TAB PO SCH ×2 (08:52→17:38)
[2018-09-04] MEDS: APIXABAN 5 MG TAB PO SCH ×2 (08:52→19:52)
[2018-09-04] MEDS: POLYETHYLENE GLYCOL 3350 17 GM PKT PO SCH (08:53)
[2018-09-04] MEDS: METOPROLOL SUCCINATE XR 50 MG TAB PO SCH (08:53)
[2018-09-04] MEDS: SENNOSIDES 1 TAB PO SCH ×2 (08:53→19:52)
[2018-09-04] MEDS: traMADol 50 MG TAB PO SCH ×3 (08:54→19:53)
[2018-09-04] MEDS: MELATONIN 3 MG TAB PO SCH (19:52)
[2018-09-04] MEDS: OXYBUTYNIN CHLORIDE 5 MG TAB PO SCH (19:52)
[2018-09-04] MEDS: ATORVASTATIN CALCIUM 40 MG TAB PO SCH (19:52)
[2018-09-05] MEDS: ACETAMINOPHEN 500 MG TAB PO SCH ×3 (05:26→21:09)
[2018-09-05] MEDS: DICLOFENAC SODIUM 1% 100 GM GEL TP SCH ×4 (05:26→21:00)
[2018-09-05] MEDS: THIAMINE HCL 100 MG TAB PO SCH (08:55)
[2018-09-05] MEDS: LOSARTAN POTASSIUM 50 MG TAB PO SCH (08:55)
[2018-09-05] MEDS: POTASSIUM CL 10 MEQ TAB PO SCH ×2 (08:55→17:31)
[2018-09-05] MEDS: traMADol 50 MG TAB PO SCH ×3 (08:56→21:11)
[2018-09-05] MEDS: METOPROLOL SUCCINATE XR 50 MG TAB PO SCH (08:56)
[2018-09-05] MEDS: APIXABAN 5 MG TAB PO SCH ×2 (08:56→21:11)
[2018-09-05] MEDS: SENNOSIDES 1 TAB PO SCH ×2 (08:56→21:11)
[2018-09-05] MEDS: POLYETHYLENE GLYCOL 3350 17 GM PKT PO SCH (08:57)
[2018-09-05] MEDS: CITALOPRAM 20 MG TAB PO SCH (08:57)
--- NOTE | 2018-09-05 11:18 | HOSPPROG ---
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 * Initial functional independence measure is 25 on 09/01/2017. Requires 2 assist per nursing staff to transfer with Heydi Hollis. Moderate assist of 2 for squat pivot transfer with therapy staff. Requires standby assist for seated balance. Upper body dressing requires maximal to total assist, lower body dressing requires total assist. Was able to stand at the rail with assistance of 2 person, moderate. * Continue PT and OT to optimize mobility and activities of daily living. Expressive aphasia, severe and receptive aphasia, moderate * Continue Speech and Language Pathology. Dysphagia. Continue dysphagia 2 diet. * Has right oral pocketing and leak at the right labial seal. Eating is slow and laborious. * Continue Speech and Language Pathology. Hypertension. Continue medications with amlodipine 10 mg daily, losartan 100 mg daily, and metoprolol XR 50 mg daily. Blood pressure will be monitored, and medications will be adjusted as needed. Hypokalemia. Normal magnesium. Minimal improvement after a single dose of potassium 20 mEq yesterday evening, 08/31/2018. Will increase to twice daily. * Hypertension and hypokalemia with urinary potassium loss raises the possibility of hyperaldosteronism. However plasma aldosterone concentration is below the detectable limit and plasma renin activity is slightly high, ruling out primary aldosteronism. Consider renovascular hypertension. * Consider initiation of spironolactone. First want to be more confident regarding fluid intake. BMP consistent with mild dehydration with BUN to creatinine ratio greater than 20-1 on 08/31/2018. * Attempted repeat BMP 09/03/2018. He is a difficult stick and the specimen was hemolyzed. Will try again tomorrow morning, with point of care machine if it can be brought over from [facility]. * CANNOT GET BLOOD THIS MORNING Right shoulder pain with possible injury in the hospital. He had x-ray showing no bony defects, so presumably it is a soft tissue injury. History of a shoulder replacement * Began scheduled acetaminophen at 1000 mg q.8 h. and tramadol 50 mg q.6 hours p.r.n. on 08/30/2017. * Added scheduled tramadol 50 mg three times daily starting 08/31/2017. * Initiate diclofenac gel, 09/01/2017. Nausea, 09/02/2018. May be related to RODRIGUEZ and poor sleep. May be due to tramadol , though he has tolerated in the past. May be related to constipation with small bowel movement today, and no bowel movements for several days previous. Will initiate bowel program with senna twice daily and polyethylene glycol daily , which he will likely need as long as he is taking tramadol. Insomnia? He indicates difficulty falling asleep and nurse reported frequent awakenings to urinate. Postvoid residual was low at 85 so unclear if he would benefit from on alpha wen. Start melatonin 3 mg at HS on 08/31/2017. Continue to monitor. * Urinalysis is normal. * Initiated low-dose oxybutynin 2.5 mg at HS starting 09/02/2018. Initiated scheduled toileting q.4 hours including up once at night starting 09/02/2018. Dyslipidemia. Continue atorvastatin at 80 mg p.o. at bedtime. Secondary prevention of CVA, with likely atrial fibrillation or flutter as an etiology. Continue apixaban 5 mg twice daily. Depressed mood and facilitation of neuro recovery. Continue citalopram as it was begun in the hospital rather than changing to fluoxetine, which would be in accord with the FLAME trial. History of alcohol abuse and possible dependence. He is far enough out that there is no longer any concern for alcohol withdrawal. Macrocytosis him this improved compared to labs when he 1st presented at [facility] on . B12 levels normal.. He has been treated with thiamine, which will be continued until he is taking all of his nutritional needs through his regular diet. Prophylaxis. He is on apixaban due to likely atrial fibrillation, and this will suffice for DVT prophylaxis. He has no history of GI bleeding, and he is no longer critically ill. Will not initiate a proton pump inhibitor or H2 wen. DISPOSITION: Lives in a 3 level home with his . There is no better more bathroom on the main level. They would consider adding stair lifts. Good family support. Very significant debility. Expected length of stay 4-6 weeks, with tentative discharge 10/11/2018. If he fails to progress he might be more appropriate for a SNF. Followup. His reports that his primary care provider is Kimberly Mchugh, whom he can see after discharge. He was seen by Dr. Alatorre of [facility], and we will determine during his stay whether he should follow up with [facility] or with neurologists in [place]. Subjective: no new complaints Objective: Vital Signs Temp Pulse Resp BP Pulse Ox 37.2 C 72 16 140/90 H 95 09/05/18 08:00 09/05/18 08:00 09/05/18 08:00 09/05/18 08:55 09/05/18 08:00 Laboratory Results 08/31/18 06:00 09/03/18 12:08 09/04/18 09/05/18 09/06/18 05:59 05:59 05:59 Intake Total 1150 700 360 Output Total 1075 900 Balance 75 -200 360 - Physical Exam Constitutional: no apparent distress, appears nourished, not in pain Eyes: anicteric sclera, EOMI Ears, Nose, Mouth, Throat: moist mucous membranes Cardiovascular: regular rate and rhythym Respiratory: no respiratory distress Skin: warm Neurologic: AAOx3, weakness (right) Psychiatric: interacting appropriately ICD10 Worksheet Patient Problems: Problems Problem Status Onset Atrial flutter Acute Chest pain Acute atrial flutter Acute
--- NOTE | 2018-09-05 11:21 | HOSPPROG ---
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 * Initial functional independence measure is 25 on 09/01/2017. Requires 2 assist per nursing staff to transfer with Heydi Hollis. Moderate assist of 2 for squat pivot transfer with therapy staff. Requires standby assist for seated balance. Upper body dressing requires maximal to total assist, lower body dressing requires total assist. Was able to stand at the rail with assistance of 2 person, moderate. * Continue PT and OT to optimize mobility and activities of daily living. HEADACHE * NOT ENCEPHALOPATHIC AND SEEMS TO HAVE STARTED WITH STROKE * WILL WATCH AND HOLD OFF ON CT HEAD INDIGESTION * GETS AT HOME AND [employer]AL[employer] HELPS. WILL WRITE FOR Expressive aphasia, severe and receptive aphasia, moderate * Continue Speech and Language Pathology. Dysphagia. Continue dysphagia 2 diet. * Has right oral pocketing and leak at the right labial seal. Eating is slow and laborious. * Continue Speech and Language Pathology. Hypertension. Continue medications with amlodipine 10 mg daily, losartan 100 mg daily, and metoprolol XR 50 mg daily. Blood pressure will be monitored, and medications will be adjusted as needed. Hypokalemia. Normal magnesium. Minimal improvement after a single dose of potassium 20 mEq yesterday evening, 08/31/2018. Will increase to twice daily. * Hypertension and hypokalemia with urinary potassium loss raises the possibility of hyperaldosteronism. However plasma aldosterone concentration is below the detectable limit and plasma renin activity is slightly high, ruling out primary aldosteronism. Consider renovascular hypertension. * Consider initiation of spironolactone. First want to be more confident regarding fluid intake. BMP consistent with mild dehydration with BUN to creatinine ratio greater than 20-1 on 08/31/2018. * Attempted repeat BMP 09/03/2018. He is a difficult stick and the specimen was hemolyzed. Will try again tomorrow morning, with point of care machine if it can be brought over from [facility]. * CANNOT GET BLOOD THIS MORNING Right shoulder pain with possible injury in the hospital. He had x-ray showing no bony defects, so presumably it is a soft tissue injury. History of a shoulder replacement * Began scheduled acetaminophen at 1000 mg q.8 h. and tramadol 50 mg q.6 hours p.r.n. on 08/30/2017. * Added scheduled tramadol 50 mg three times daily starting 08/31/2017. * Initiate diclofenac gel, 09/01/2017. Nausea, 09/02/2018. May be related to RODRIGUEZ and poor sleep. May be due to tramadol , though he has tolerated in the past. May be related to constipation with small bowel movement today, and no bowel movements for several days previous. Will initiate bowel program with senna twice daily and polyethylene glycol daily , which he will likely need as long as he is taking tramadol. Insomnia? He indicates difficulty falling asleep and nurse reported frequent awakenings to urinate. Postvoid residual was low at 85 so unclear if he would benefit from on alpha wen. Start melatonin 3 mg at HS on 08/31/2017. Continue to monitor. * Urinalysis is normal. * Initiated low-dose oxybutynin 2.5 mg at HS starting 09/02/2018. Initiated scheduled toileting q.4 hours including up once at night starting 09/02/2018. Dyslipidemia. Continue atorvastatin at 80 mg p.o. at bedtime. Secondary prevention of CVA, with likely atrial fibrillation or flutter as an etiology. Continue apixaban 5 mg twice daily. Depressed mood and facilitation of neuro recovery. Continue citalopram as it was begun in the hospital rather than changing to fluoxetine, which would be in accord with the FLAME trial. History of alcohol abuse and possible dependence. He is far enough out that there is no longer any concern for alcohol withdrawal. Macrocytosis him this improved compared to labs when he 1st presented at [facility] on . B12 levels normal.. He has been treated with thiamine, which will be continued until he is taking all of his nutritional needs through his regular diet. Prophylaxis. He is on apixaban due to likely atrial fibrillation, and this will suffice for DVT prophylaxis. He has no history of GI bleeding, and he is no longer critically ill. Will not initiate a proton pump inhibitor or H2 wen. DISPOSITION: Lives in a 3 level home with his . There is no better more bathroom on the main level. They would consider adding stair lifts. Good family support. Very significant debility. Expected length of stay 4-6 weeks, with tentative discharge 10/11/2018. If he fails to progress he might be more appropriate for a SNF. Followup. His reports that his primary care provider is Kimberly Mchugh, whom he can see after discharge. He was seen by Dr. Alatorre of [facility], and we will determine during his stay whether he should follow up with [facility] or with neurologists in [place]. Subjective: C/O HEADACHE AND INDIGESTION Objective: Vital Signs Temp Pulse Resp BP Pulse Ox 37.2 C 72 16 140/90 H 95 09/05/18 08:00 09/05/18 08:00 09/05/18 08:00 09/05/18 08:55 09/05/18 08:00 Laboratory Results 08/31/18 06:00 09/03/18 12:08 09/04/18 09/05/18 09/06/18 05:59 05:59 05:59 Intake Total 1150 700 360 Output Total 1075 900 Balance 75 -200 360 - Physical Exam Constitutional: no apparent distress, appears nourished, not in pain Eyes: anicteric sclera, EOMI Ears, Nose, Mouth, Throat: moist mucous membranes Cardiovascular: regular rate and rhythym Respiratory: no respiratory distress Skin: warm Neurologic: AAOx3, weakness (RIGHT) Psychiatric: interacting appropriately ICD10 Worksheet Patient Problems: Problems Problem Status Onset Atrial flutter Acute Chest pain Acute atrial flutter Acute
[2018-09-05] MEDS: MAG HYDROX/AL HYDROX/SIMETH 30 ML UDCUP PO PRN (12:59)
[2018-09-05] MEDS: MELATONIN 3 MG TAB PO SCH (21:11)
[2018-09-05] MEDS: OXYBUTYNIN CHLORIDE 5 MG TAB PO SCH (21:11)
[2018-09-05] MEDS: ATORVASTATIN CALCIUM 40 MG TAB PO SCH (21:12)
[2018-09-06] MEDS: ACETAMINOPHEN 500 MG TAB PO SCH ×3 (05:53→21:29)
[2018-09-06] MEDS: DICLOFENAC SODIUM 1% 100 GM GEL TP SCH ×4 (05:53→21:27)
[2018-09-06] MEDS: SENNOSIDES 1 TAB PO SCH ×2 (08:45→21:29)
[2018-09-06] MEDS: APIXABAN 5 MG TAB PO SCH ×2 (08:45→21:29)
[2018-09-06] MEDS: POLYETHYLENE GLYCOL 3350 17 GM PKT PO SCH ×2 (08:45→16:05)
[2018-09-06] MEDS: THIAMINE HCL 100 MG TAB PO SCH (08:45)
[2018-09-06] MEDS: traMADol 50 MG TAB PO SCH ×2 (09:08→10:31)
[2018-09-06] MEDS: METOPROLOL SUCCINATE XR 50 MG TAB PO SCH (09:09)
[2018-09-06] MEDS: LOSARTAN POTASSIUM 50 MG TAB PO SCH (09:10)
[2018-09-06] MEDS: CITALOPRAM 20 MG TAB PO SCH ×2 (09:10→09:31)
[2018-09-06] MEDS ORDERED: ONDANSETRON DISINTEGRATING 4 MG TAB PO PRN (09:24)
[2018-09-06] MEDS: POTASSIUM CL 10 MEQ TAB PO SCH (10:39)
[2018-09-06] MEDS: MAG HYDROX/AL HYDROX/SIMETH 30 ML UDCUP PO PRN (11:26)
--- NOTE | 2018-09-06 12:19 | SOAPPROG ---
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 * Initial functional independence measure is 25 on 09/01/2017. Requires 2 assist per nursing staff to transfer with Heydi Hollis. Moderate assist of 2 for squat pivot transfer with therapy staff. Requires standby assist for seated balance. Upper body dressing requires maximal to total assist, lower body dressing requires total assist. Was able to stand at the rail with assistance of 2 person, moderate. * Continue PT and OT to optimize mobility and activities of daily living. Expressive aphasia, severe, and receptive aphasia, moderate * Continue Speech and Language Pathology. Dysphagia. Continue dysphagia 2 diet. * Has right oral pocketing and leak at the right labial seal. Eating is slow and laborious. * Continue Speech and Language Pathology. Hypertension. Continue medications with amlodipine 10 mg daily, losartan 100 mg daily, and metoprolol XR 50 mg daily. Blood pressure will be monitored, and medications will be adjusted as needed. Hypokalemia. Normal magnesium. Minimal improvement after a single dose of potassium 20 mEq yesterday evening, 08/31/2018. Will increase to twice daily. * Hypertension and hypokalemia with urinary potassium loss raises the possibility of hyperaldosteronism. However plasma aldosterone concentration is below the detectable limit and plasma renin activity is slightly high, ruling out primary aldosteronism. Consider renovascular hypertension. * Improved hydration and normal potassium on BMP 09/06/2018. Will decrease potassium supplement to 20 mEq daily before lunch, as it may be contributing to nausea in the morning. * Will not consider spironolactone due to nocturia and difficulty obtaining labs for monitoring potassium. Nausea. Tramadol may contribute. Will discontinue and initiate oxycodone at low dose, 2.5-5 mg q.4 hours as needed. Change potassium to single dose before lunch each day. Continue ondansetron as needed. Continue to monitor. Right shoulder pain with possible injury in the hospital. He had x-ray showing no bony defects, so presumably it is a soft tissue injury. History of a shoulder replacement * Began scheduled acetaminophen at 1000 mg q.8 h. and tramadol 50 mg q.6 hours p.r.n. on 08/30/2017. * Added scheduled tramadol 50 mg three times daily starting 08/31/2017. * Initiate diclofenac gel, 09/01/2017. Insomnia? He indicates difficulty falling asleep and nurse reported frequent awakenings to urinate. Postvoid residual was low at 85 so unclear if he would benefit from on alpha wen. Start melatonin 3 mg at HS on 08/31/2017. Continue to monitor. * Urinalysis is normal. * Oxybutynin at 2.5 and then titrated to 5 mg at bedtime has not been effective. Condom catheter at night will not stay in place. He is on a toileting schedule but does not move urinate until he is ready. No easy solution to nocturia. Continue efforts of nursing. Dyslipidemia. Continue atorvastatin at 80 mg p.o. at bedtime. Secondary prevention of CVA, with likely atrial fibrillation or flutter as an etiology. Continue apixaban 5 mg twice daily. Depressed mood and facilitation of neuro recovery. Changed from citalopram to fluoxetine starting 09/06/2017, due to reduced likelihood of prolonging QT together with ondansetron. History of alcohol abuse and possible dependence. He is far enough out that there is no longer any concern for alcohol withdrawal. Macrocytosis him this improved compared to labs when he 1st presented at [facility] on . B12 levels normal.. He has been treated with thiamine, which will be continued until he is taking all of his nutritional needs through his regular diet. Prophylaxis. He is on apixaban due to likely atrial fibrillation, and this will suffice for DVT prophylaxis. He has no history of GI bleeding, and he is no longer critically ill. Will not initiate a proton pump inhibitor or H2 wen. DISPOSITION: Lives in a 3 level home with his . There is no better more bathroom on the main level. They would consider adding stair lifts. Good family support. Very significant debility. Expected length of stay 4-6 weeks, with tentative discharge 10/11/2018. If he fails to progress he might be more appropriate for a SNF. Followup. His reports that his primary care provider is Kimberly Mchugh, whom he can see after discharge. He was seen by Dr. Alatorre of [facility], and we will determine during his stay whether he should follow up with [facility] or with neurologists in [place]. 09/06/18 12:14 Subjective: Has nausea every morning. Does not have constipation. Currently with nausea. No abdominal pain, no vomiting. Objective: Vital Signs Temp Pulse Resp BP Pulse Ox 36.7 C 67 16 114/82 H 95 09/06/18 07:10 09/06/18 07:10 09/06/18 07:10 09/06/18 09:10 09/06/18 07:10 Laboratory Results 08/31/18 06:00 09/06/18 09:00 09/05/18 09/06/18 09/07/18 05:59 05:59 05:59 Intake Total 700 360 Output Total 900 310 Balance -200 50 Physical Exam - Physical Exam General Appearance: WD/WN, alert, no apparent distress Respiratory: normal breath sounds, No crackles, No rhonchi, No wheezing Cardiac/Chest: regular rate, rhythm, No diastolic murmur, No systolic murmur Skin: normal color, warm/dry Neuro/Psych: alert, normal mood/affect, aphasia, motor weakness ICD10 Worksheet Patient Problems: Problems Problem Status Onset Atrial flutter Acute Chest pain Acute atrial flutter Acute
[2018-09-06] MEDS: FLUoxetine 20 MG CAP PO SCH (14:00)
[2018-09-06] MEDS ORDERED: POTASSIUM CL 10 MEQ TAB PO SCH (17:00)
[2018-09-06] MEDS: MELATONIN 3 MG TAB PO SCH (21:29)
[2018-09-06] MEDS: oxyCODONE IR 5 MG TAB PO PRN (21:29)
[2018-09-06] MEDS: ATORVASTATIN CALCIUM 40 MG TAB PO SCH (21:29)
[2018-09-07] MEDS: ACETAMINOPHEN 500 MG TAB PO SCH ×3 (05:34→20:38)
[2018-09-07] MEDS: DICLOFENAC SODIUM 1% 100 GM GEL TP SCH ×4 (05:37→20:39)
[2018-09-07] MEDS: METOPROLOL SUCCINATE XR 50 MG TAB PO SCH (09:29)
[2018-09-07] MEDS: FLUoxetine 20 MG CAP PO SCH (09:32)
[2018-09-07] MEDS: APIXABAN 5 MG TAB PO SCH ×2 (09:32→20:39)
[2018-09-07] MEDS: LOSARTAN POTASSIUM 50 MG TAB PO SCH (09:32)
[2018-09-07] MEDS: POTASSIUM CL 10 MEQ TAB PO SCH (12:36)
[2018-09-07] MEDS: THIAMINE HCL 100 MG TAB PO SCH (12:36)
[2018-09-07] MEDS: POLYETHYLENE GLYCOL 3350 17 GM PKT PO SCH (12:38)
[2018-09-07] MEDS: SENNOSIDES 1 TAB PO SCH ×2 (12:38→20:38)
--- NOTE | 2018-09-07 17:10 | SOAPPROG ---
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 * Initial functional independence measure is 25 on 09/01/2017. Requires 2 assist per nursing staff to transfer with Heydi Hollis. Moderate assist of 2 for squat pivot transfer with therapy staff. Requires standby assist for seated balance. Upper body dressing requires maximal to total assist, lower body dressing requires total assist. Was able to stand at the rail with assistance of 2 person, moderate. * Continue PT and OT to optimize mobility and activities of daily living. Expressive aphasia, severe, and receptive aphasia, moderate * Continue Speech and Language Pathology. Dysphagia. Continue dysphagia 2 diet. * Has right oral pocketing and leak at the right labial seal. Eating is slow and laborious. * Continue Speech and Language Pathology. Hypertension. Continue medications with amlodipine 10 mg daily, losartan 100 mg daily, and metoprolol XR 50 mg daily. Blood pressure will be monitored, and medications will be adjusted as needed. Hypokalemia. Normal magnesium. Minimal improvement after a single dose of potassium 20 mEq yesterday evening, 08/31/2018. Will increase to twice daily. * Hypertension and hypokalemia with urinary potassium loss raises the possibility of hyperaldosteronism. However plasma aldosterone concentration is below the detectable limit and plasma renin activity is slightly high, ruling out primary aldosteronism. Consider renovascular hypertension. * Improved hydration and normal potassium on BMP 09/06/2018. Will decrease potassium supplement to 20 mEq daily before lunch, as it may be contributing to nausea in the morning. * Will not consider spironolactone due to nocturia and difficulty obtaining labs for monitoring potassium. Nausea. Tramadol may contribute. Will discontinue and initiate oxycodone at low dose, 2.5-5 mg q.4 hours as needed. Change potassium to single dose before lunch each day. Continue ondansetron as needed. * Much improved. Right shoulder pain with possible injury in the hospital. He had x-ray showing no bony defects, so presumably it is a soft tissue injury. History of a shoulder replacement * Began scheduled acetaminophen at 1000 mg q.8 h. and tramadol 50 mg q.6 hours p.r.n. on 08/30/2018. * Added scheduled tramadol 50 mg three times daily starting 08/31/2017. Changed to oxycodone on 09/06/2018;; used that evening has not since. * Initiate diclofenac gel, 09/01/2017. Insomnia? He indicates difficulty falling asleep and nurse reported frequent awakenings to urinate. Postvoid residual was low at 85 so unclear if he would benefit from on alpha wen. Start melatonin 3 mg at HS on 08/31/2018. Continue to monitor. * Urinalysis is normal. * Oxybutynin at 2.5 and then titrated to 5 mg at bedtime has not been effective. Condom catheter at night will not stay in place. He is on a toileting schedule but does not move urinate until he is ready. No easy solution to nocturia. Continue efforts of nursing. Dyslipidemia. Continue atorvastatin at 80 mg p.o. at bedtime. Secondary prevention of CVA, with likely atrial fibrillation or flutter as an etiology. Continue apixaban 5 mg twice daily. Depressed mood and facilitation of neuro recovery. Changed from citalopram to fluoxetine starting 09/06/2017, due to reduced likelihood of prolonging QT together with ondansetron. History of alcohol abuse and possible dependence. He is far enough out that there is no longer any concern for alcohol withdrawal. Macrocytosis him this improved compared to labs when he 1st presented at [facility] on . B12 levels normal.. He has been treated with thiamine, which will be continued until he is taking all of his nutritional needs through his regular diet. Prophylaxis. He is on apixaban due to likely atrial fibrillation, and this will suffice for DVT prophylaxis. He has no history of GI bleeding, and he is no longer critically ill. Will not initiate a proton pump inhibitor or H2 wen. DISPOSITION: Lives in a 3 level home with his . There is no better more bathroom on the main level. They would consider adding stair lifts. Good family support. Very significant debility. Expected length of stay 4-6 weeks, with tentative discharge 10/11/2018. If he fails to progress he might be more appropriate for a SNF. Followup. His reports that his primary care provider is Kimberly Mchugh, whom he can see after discharge. He was seen by Dr. Alatorre of [facility], and we will determine during his stay whether he should follow up with [facility] or with neurologists in [place]. 09/07/18 17:07 Subjective: Bilateral shoulder pain is more less at baseline and not interfering with therapies. Sleep continues to be interrupted by frequent urination. He no longer has nausea and has not used ondansetron since yesterday morning. Objective: Vital Signs Temp Pulse Resp BP Pulse Ox 36.4 C 92 16 125/74 H 94 09/07/18 05:41 09/07/18 09:29 09/07/18 05:41 09/07/18 09:32 09/07/18 05:41 Laboratory Results 08/31/18 06:00 09/06/18 09:00 09/06/18 09/07/18 09/08/18 05:59 05:59 05:59 Intake Total 360 980 476 Output Total 310 325 50 Balance 50 655 426 Physical Exam - Physical Exam General Appearance: WD/WN, alert, no apparent distress Respiratory: No respiratory distress, No accessory muscle use Skin: normal color, warm/dry, other (Several skin tears on right upper extremity covered with Allyven dressings.) Neuro/Psych: alert, normal mood/affect, aphasia ICD10 Worksheet Patient Problems: Problems Problem Status Onset Atrial flutter Acute Chest pain Acute atrial flutter Acute
[2018-09-07] MEDS: ATORVASTATIN CALCIUM 40 MG TAB PO SCH (20:38)
[2018-09-07] MEDS: MELATONIN 3 MG TAB PO SCH (20:39)
[2018-09-08] MEDS: ACETAMINOPHEN 500 MG TAB PO SCH ×3 (06:01→22:23)
[2018-09-08] MEDS: DICLOFENAC SODIUM 1% 100 GM GEL TP SCH ×4 (07:26→22:23)
[2018-09-08] MEDS: SENNOSIDES 1 TAB PO SCH ×2 (08:28→22:22)
[2018-09-08] MEDS: FLUoxetine 20 MG CAP PO SCH (08:28)
[2018-09-08] MEDS: POLYETHYLENE GLYCOL 3350 17 GM PKT PO SCH (08:28)
[2018-09-08] MEDS: METOPROLOL SUCCINATE XR 50 MG TAB PO SCH (08:28)
[2018-09-08] MEDS: APIXABAN 5 MG TAB PO SCH ×2 (08:28→22:23)
[2018-09-08] MEDS: LOSARTAN POTASSIUM 50 MG TAB PO SCH (08:28)
[2018-09-08] MEDS: MAG HYDROX/AL HYDROX/SIMETH 30 ML UDCUP PO PRN ×3 (10:31→19:09)
--- NOTE | 2018-09-08 11:24 | SOAPPROG ---
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 * Initial functional independence measure is 25 on 09/01/2017; improved to 46 as of 09/08/2018 moderate to maximal assist for bed mobility. Sit to stand with minimal assist. Sliding board transfer with contact guard to minimal assist. Squat pivot transfer with minimal assist. He gets fatigued with prolonged standing. Grooming and hygiene are done standing with minimal assist to standby assist. Right leg normal and apraxia affect upper body dressing which requires moderate to maximal assist and lower body dressing is done in bed with maximal to total assist. Bathing requires maximal assist. Transfer requires total assist to bathe. He is beginning to have return of right upper extremity motor function at the scapula with adduction and at the biceps.. * Continue PT and OT to optimize mobility and activities of daily living. Expressive aphasia, severe, and receptive aphasia, moderate. 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 * Has recover social language. * Continue Speech and Language Pathology. Dysphagia. Advanced from dysphagia 2 to dysphagia 3 diet. * Continue Speech and Language Pathology. Hypertension. Continue medications with amlodipine 10 mg daily, losartan 100 mg daily, and metoprolol XR 50 mg daily. Blood pressure will be monitored, and medications will be adjusted as needed. Hypokalemia. Normal magnesium. * Hypertension and hypokalemia with urinary potassium loss raises the possibility of hyperaldosteronism. However plasma aldosterone concentration is below the detectable limit and plasma renin activity is slightly high, ruling out primary aldosteronism. Consider renovascular hypertension. * Improved hydration and normal potassium on BMP 09/06/2018. Will decrease potassium supplement to 20 mEq daily before lunch, as it may be contributing to nausea in the morning. * Will not consider spironolactone due to nocturia and difficulty obtaining labs for monitoring potassium. Nausea. Tramadol may contribute. Will discontinue and initiate oxycodone at low dose, 2.5-5 mg q.4 hours as needed. Change potassium to single dose before lunch each day. Continue ondansetron as needed. * Much improved. Right shoulder pain with possible injury in the hospital. He had x-ray showing no bony defects, so presumably it is a soft tissue injury. History of a shoulder replacement * Began scheduled acetaminophen at 1000 mg q.8 h. and tramadol 50 mg q.6 hours p.r.n. on 08/30/2018. * Added scheduled tramadol 50 mg three times daily starting 08/31/2017. Changed to oxycodone on 09/06/2018; used that evening has not since. * Initiate diclofenac gel, 09/01/2017. Insomnia? He indicates difficulty falling asleep and nurse reported frequent awakenings to urinate. Postvoid residual was low at 85 so unclear if he would benefit from on alpha wen. Start melatonin 3 mg at HS on 08/31/2018. Continue to monitor. * Urinalysis is normal. * Oxybutynin at 2.5 and then titrated to 5 mg at bedtime has not been effective. Condom catheter at night will not stay in place. He is on a toileting schedule but does not move urinate until he is ready. No easy solution to nocturia. Continue efforts of nursing. Dyslipidemia. Continue atorvastatin at 80 mg p.o. at bedtime. Secondary prevention of CVA, with likely atrial fibrillation or flutter as an etiology. Continue apixaban 5 mg twice daily. Depressed mood and facilitation of neuro recovery. Changed from citalopram to fluoxetine starting 09/06/2017, due to reduced likelihood of prolonging QT together with ondansetron. History of alcohol abuse and possible dependence. He is far enough out that there is no longer any concern for alcohol withdrawal. Macrocytosis him this improved compared to labs when he 1st presented at [facility] on . B12 levels normal.. He has been treated with thiamine, which will be continued until he is taking all of his nutritional needs through his regular diet. Prophylaxis. He is on apixaban due to likely atrial fibrillation, and this will suffice for DVT prophylaxis. He has no history of GI bleeding, and he is no longer critically ill. Will not initiate a proton pump inhibitor or H2 wen. DISPOSITION: Attended staffing, 15 min. 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 Lives in a 3 level home with his . There is no better more bathroom on the main level. They plan to add stair lifts. Good family support. Very significant debility. Expected length of stay 4-6 weeks, with tentative discharge 09/27/2018 - 10/11/2018. Followup. His reports that his primary care provider is Kimberly Lipetz, whom he can see after discharge. He was seen by Dr. Alatorre of [facility], and we will determine during his stay whether he should follow up with [facility] or with neurologists in [place]. 09/08/18 11:18 Subjective: Still with interrupted sleep due to nocturia times 4-5. Shoulder pain has not interfering with sleep. No cough or dyspnea. Does not feel sleepy through the day. Objective: Vital Signs Temp Pulse Resp BP Pulse Ox 36.3 C 72 17 151/91 H 93 09/08/18 06:43 09/08/18 06:43 09/08/18 06:43 09/08/18 06:43 09/08/18 06:43 Laboratory Results 08/31/18 06:00 09/06/18 09:00 09/07/18 09/08/18 09/09/18 05:59 05:59 05:59 Intake Total 980 676 580 Output Total 325 650 100 Balance 655 26 480 - Time Spent With Patient Time Spent With Patient: Greater than 35 min floor time today, including more than 50% of time in coordination of care during staffing meeting, and counseling patient. Physical Exam - Physical Exam General Appearance: WD/WN, alert, no apparent distress, obese Respiratory: normal breath sounds, crackles (Few bibasilar which clear with deep inspiration), No rhonchi, No wheezing Cardiac/Chest: regular rate, rhythm, No edema, No diastolic murmur, No systolic murmur Skin: normal color, warm/dry, other (Skin tears on arms with dressings in place) Neuro/Psych: alert, normal mood/affect, aphasia (Appears to understand spoken language. Has social readings. Able to use assistive communication device.), motor weakness (Right upper and lower extremities) ICD10 Worksheet Patient Problems: Problems Problem Status Onset Atrial flutter Acute Chest pain Acute atrial flutter Acute
[2018-09-08] MEDS: THIAMINE HCL 100 MG TAB PO SCH (13:30)
[2018-09-08] MEDS: POTASSIUM CL 10 MEQ TAB PO SCH (13:30)
[2018-09-08] MEDS: ATORVASTATIN CALCIUM 40 MG TAB PO SCH (22:22)
[2018-09-08] MEDS: MELATONIN 3 MG TAB PO SCH (22:23)
[2018-09-09] MEDS: DICLOFENAC SODIUM 1% 100 GM GEL TP SCH ×4 (05:13→21:40)
[2018-09-09] MEDS: ACETAMINOPHEN 500 MG TAB PO SCH ×3 (05:13→21:40)
[2018-09-09] MEDS: MAG HYDROX/AL HYDROX/SIMETH 30 ML UDCUP PO PRN ×2 (08:25→13:49)
[2018-09-09] MEDS: METOPROLOL SUCCINATE XR 50 MG TAB PO SCH (08:27)
[2018-09-09] MEDS: LOSARTAN POTASSIUM 50 MG TAB PO SCH (08:28)
[2018-09-09] MEDS: FLUoxetine 20 MG CAP PO SCH (08:30)
[2018-09-09] MEDS: APIXABAN 5 MG TAB PO SCH ×2 (08:31→21:40)
--- NOTE | 2018-09-09 09:02 | SOAPPROG ---
SOVERN Progress Note Assessment/Plan: 78-year-old male with severe left-sided MCA stroke on 08/18/2018 with right- sided hemiparesis and severe aphasia Today's update: Severe aphasia limits the quality of history, patient reportedly has significant increase in GI discomfort, most likely related to GERD given additional symptoms of reflux, however also fairly high cardiac risk so will obtain ECG and troponin out of abundance of caution. At the same time, given his history of difficult lab draws, also will obtain electrolytes, CBC, coagulation panel given his additional risk for bleeding. Otherwise, seems to be participating in therapies, does not seem to have additional barriers. Blood pressure seems reasonably controlled, continue to monitor. Additional issues reviewed without change today include right shoulder pain, insomnia, dyslipidemia, secondary stroke prevention, depressed mood, history of alcohol abuse and possible dependence, prophylaxis. A total of 25 min was spent on the floor in the care of the patient, the majority of which was spent in counseling coordination of care regarding potential etiologies of his epigastric discomfort, rehabilitation plan. 09/09/18 08:56 Subjective: Chief complaint: Epigastric discomfort No acute events overnight. Patient denies any new shortness of breath or chest pain, no new numbness, tingling, numbness or weakness. Noted by nursing to have increase use of Maalox, inquired with patient and family about the history of this symptom, thinks that he has had more indigestion over the past several days, also notes more burping. Patient has had a history of atrial flutter status post ablation, no prior myocardial infarctions. Otherwise patient denies pain or discomfort Objective: Vital Signs Temp Pulse Resp BP Pulse Ox 36.6 C 77 17 121/71 H 94 09/09/18 06:06 09/09/18 06:06 09/09/18 06:06 09/09/18 06:06 09/09/18 06:06 Laboratory Results 08/31/18 06:00 09/06/18 09:00 09/08/18 09/09/18 09/10/18 05:59 05:59 05:59 Intake Total 676 750 Output Total 650 350 50 Balance 26 400 -50 Physical Exam - Physical Exam General Appearance: WD/WN, alert, no apparent distress EENT: No scleral icterus (R), No scleral icterus (L) Respiratory: lungs clear, normal breath sounds, No respiratory distress, No accessory muscle use Cardiac/Chest: normal peripheral pulses, regular rate, rhythm, No edema, No diastolic murmur, No systolic murmur, No extra beats Abdomen: normal bowel sounds, non-tender, soft Skin: normal color, warm/dry, No cyanosis, No diaphoresis Extremities: No swelling Neuro/Psych: alert, normal mood/affect, motor weakness (Severe right-sided hemiparesis), speech abnormalities (Dense aphasia, appears receptive as well as expressive) ICD10 Worksheet Patient Problems: Problems Problem Status Onset Atrial flutter Acute Chest pain Acute atrial flutter Acute
[2018-09-09] MEDS: SENNOSIDES 1 TAB PO SCH ×2 (12:16→21:41)
[2018-09-09] MEDS: POLYETHYLENE GLYCOL 3350 17 GM PKT PO SCH (12:16)
[2018-09-09] MEDS: THIAMINE HCL 100 MG TAB PO SCH (12:19)
[2018-09-09] MEDS: POTASSIUM CL 10 MEQ TAB PO SCH (13:04)
[2018-09-09] MEDS: AQUAPHOR OINTMENT 3.5 OZ JAR TP SCH ×2 (13:49→21:41)
[2018-09-09 16:40] LABS: INR 1.18 (0.83-1.16); PROTIME(PATIENT) 15.2 SEC (12.0-15.0)
[2018-09-09] MEDS: ATORVASTATIN CALCIUM 40 MG TAB PO SCH (21:40)
[2018-09-09] MEDS: MELATONIN 3 MG TAB PO SCH (21:41)
--- NOTE | 2018-09-09 23:45 | CPEKG ---
Test Reason : OPEN Blood Pressure : / mmHG Vent. Rate : 069 BPM Atrial Rate : 070 BPM P-R Int : 224 ms QRS Dur : 098 ms QT Int : 400 ms P-R-T Axes : 065 -12 031 degrees QTc Int : 429 ms SINUS RHYTHM FIRST DEGREE AV BLOCK Confirmed by Guido iWllingham ([id number]) on 09/09/2018 11:45:14 PM Referred By: Confirmed By:Guido Willingham
[2018-09-10] MEDS: ACETAMINOPHEN 500 MG TAB PO SCH ×3 (05:48→20:15)
[2018-09-10] MEDS: DICLOFENAC SODIUM 1% 100 GM GEL TP SCH ×4 (05:48→20:06)
[2018-09-10] MEDS: APIXABAN 5 MG TAB PO SCH ×2 (08:42→20:01)
[2018-09-10] MEDS: FLUoxetine 20 MG CAP PO SCH (08:42)
[2018-09-10] MEDS: LOSARTAN POTASSIUM 50 MG TAB PO SCH (08:42)
[2018-09-10] MEDS: THIAMINE HCL 100 MG TAB PO SCH (08:43)
[2018-09-10] MEDS: METOPROLOL SUCCINATE XR 50 MG TAB PO SCH (08:44)
[2018-09-10] MEDS: MAG HYDROX/AL HYDROX/SIMETH 30 ML UDCUP PO PRN (09:24)
[2018-09-10] MEDS: POLYETHYLENE GLYCOL 3350 17 GM PKT PO SCH (09:26)
[2018-09-10] MEDS: AQUAPHOR OINTMENT 3.5 OZ JAR TP SCH ×2 (09:26→20:06)
[2018-09-10] MEDS: SENNOSIDES 1 TAB PO SCH ×2 (09:26→20:17)
--- NOTE | 2018-09-10 09:31 | SOAPPROG ---
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 * Initial functional independence measure is 25 on 09/01/2017; improved to 46 as of 09/08/2018 moderate to maximal assist for bed mobility. Sit to stand with minimal assist. Sliding board transfer with contact guard to minimal assist. Squat pivot transfer with minimal assist. He gets fatigued with prolonged standing. Grooming and hygiene are done standing with minimal assist to standby assist. Right leg normal and apraxia affect upper body dressing which requires moderate to maximal assist and lower body dressing is done in bed with maximal to total assist. Bathing requires maximal assist. Transfer requires total assist to bathe. He is beginning to have return of right upper extremity motor function at the scapula with adduction and at the biceps.. * Was able to ambulate 10 ft at the rail with moderate assist on 09/09/2018. * Continue PT and OT to optimize mobility and activities of daily living. Expressive aphasia, severe, and receptive aphasia, moderate. 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 * Has recovered social language. * Continue Speech and Language Pathology. Dysphagia. Advanced from dysphagia 2 to dysphagia 3 diet. * Continue Speech and Language Pathology. Hypertension. Continue medications with amlodipine 10 mg daily, losartan 100 mg daily, and metoprolol XR 50 mg daily. Blood pressure will be monitored, and medications will be adjusted as needed. Hypokalemia. Normal magnesium. * Hypertension and hypokalemia with urinary potassium loss raises the possibility of hyperaldosteronism. However plasma aldosterone concentration is below the detectable limit and plasma renin activity is slightly high, ruling out primary aldosteronism. Consider renovascular hypertension. * Improved hydration and normal potassium on BMP 09/06/2018. Will decrease potassium supplement to 20 mEq daily before lunch, as it may be contributing to nausea in the morning. * Will not consider spironolactone due to nocturia and difficulty obtaining labs for monitoring potassium. Dyspepsia. EKG and labs yesterday negative for cardiac ischemia. Anemia is resolved. * Trial of famotidine 20 mg twice daily starting 09/10/2018. Nausea. Tramadol may contribute. Will discontinue and initiate oxycodone at low dose, 2.5-5 mg q.4 hours as needed. Change potassium to single dose before lunch each day. Continue ondansetron as needed. * Much improved. Right shoulder pain with possible injury in the hospital. He had x-ray showing no bony defects, so presumably it is a soft tissue injury. History of a shoulder replacement * Began scheduled acetaminophen at 1000 mg q.8 h. and tramadol 50 mg q.6 hours p.r.n. on 08/30/2018. * Added scheduled tramadol 50 mg three times daily starting 08/31/2017. Changed to oxycodone on 09/06/2018; used that evening has not since. * Initiate diclofenac gel, 09/01/2017. Insomnia? He indicates difficulty falling asleep and nurse reported frequent awakenings to urinate. Postvoid residual was low at 85 so unclear if he would benefit from on alpha wen. Start melatonin 3 mg at HS on 08/31/2018. Continue to monitor. * Urinalysis is normal. * Oxybutynin at 2.5 and then titrated to 5 mg at bedtime has not been effective. Condom catheter at night will not stay in place. He is on a toileting schedule but does not move urinate until he is ready. No easy solution to nocturia. Continue efforts of nursing. Slight elevation of D-dimer on labs from 09/09/2018. He has no signs or symptoms of DVT or pulmonary embolus. Though he is at risk due to age, obesity and hemiplegia, he is also on apixaban which is sufficient for prophylaxis. Will not pursue further. Skin tears, right upper extremity. Healing well. Continue Allyven dressings. Dyslipidemia. Continue atorvastatin at 80 mg p.o. at bedtime. Secondary prevention of CVA, with likely atrial fibrillation or flutter as an etiology. Continue apixaban 5 mg twice daily. Depressed mood and facilitation of neuro recovery. Changed from citalopram to fluoxetine starting 09/06/2017, due to reduced likelihood of prolonging QT together with ondansetron. History of alcohol abuse and possible dependence. He is far enough out that there is no longer any concern for alcohol withdrawal. Macrocytosis him this improved compared to labs when he 1st presented at [facility] on . B12 levels normal.. He has been treated with thiamine, which will be continued until he is taking all of his nutritional needs through his regular diet. Prophylaxis. He is on apixaban due to likely atrial fibrillation, and this will suffice for DVT prophylaxis. He has no history of GI bleeding, and he is no longer critically ill. Will not initiate a proton pump inhibitor or H2 wen. DISPOSITION: Lives in a 3 level home with his . There is no better more bathroom on the main level. They plan to add stair lifts. Good family support. Very significant debility. Expected length of stay 4-6 weeks, with tentative discharge 09/27/2018 - 10/11/2018. Followup. His reports that his primary care provider is Kimberly Mchugh, whom he can see after discharge. He was seen by Dr. Alatorre of [facility], and we will determine during his stay whether he should follow up with [facility] or with neurologists in [place]. 09/10/18 09:31 Subjective: Sleep is okay. Still has some dyspepsia after eating. No dyspnea, rare cough. He is able to write sentences and he walked a few steps yesterday. Objective: Vital Signs Temp Pulse Resp BP Pulse Ox 36.5 C 81 18 128/52 H 95 09/10/18 08:00 09/10/18 08:00 09/10/18 08:00 09/10/18 08:00 09/10/18 08:00 Laboratory Results 09/09/18 15:15 09/09/18 15:15 09/09/18 09/10/18 09/11/18 05:59 05:59 05:59 Intake Total 750 640 Output Total 350 850 200 Balance 400 -210 -200 PT 15.2 SEC (12.0-15.0) H 09/09/18 15:15 INR 1.18 (0.83-1.16) H 09/09/18 15:15 Physical Exam - Physical Exam General Appearance: WD/WN, alert, no apparent distress Respiratory: normal breath sounds, No crackles, No rhonchi, No wheezing Cardiac/Chest: regular rate, rhythm, No edema, No diastolic murmur, No systolic murmur Skin: normal color, warm/dry, other (Skin tears on right arm, to of 3 with Steri -Strips, minimal drainage on bandage is, no purulence or erythema.) Neuro/Psych: alert, normal mood/affect, oriented x 3, aphasia (Expressive. Able to articulate a few relevant words but does better with yes or no questions. Able to right full sentences.), motor weakness (Right upper and lower extremities) ICD10 Worksheet Patient Problems: Problems Problem Status Onset Atrial flutter Acute Chest pain Acute atrial flutter Acute
[2018-09-10] MEDS: FAMOTIDINE 20 MG TAB PO SCH ×2 (10:24→20:01)
[2018-09-10] MEDS: POTASSIUM CL 10 MEQ TAB PO SCH (14:23)
[2018-09-10] MEDS: ATORVASTATIN CALCIUM 40 MG TAB PO SCH (20:01)
[2018-09-10] MEDS: MELATONIN 3 MG TAB PO SCH (20:02)
[2018-09-11] MEDS: DICLOFENAC SODIUM 1% 100 GM GEL TP SCH ×4 (05:26→19:58)
[2018-09-11] MEDS: ACETAMINOPHEN 500 MG TAB PO SCH ×3 (05:27→19:52)
[2018-09-11] MEDS: THIAMINE HCL 100 MG TAB PO SCH (08:42)
[2018-09-11] MEDS: FLUoxetine 20 MG CAP PO SCH (08:43)
[2018-09-11] MEDS: APIXABAN 5 MG TAB PO SCH ×2 (08:43→19:51)
[2018-09-11] MEDS: FAMOTIDINE 20 MG TAB PO SCH ×2 (08:43→19:52)
[2018-09-11] MEDS: LOSARTAN POTASSIUM 50 MG TAB PO SCH (08:44)
[2018-09-11] MEDS: METOPROLOL SUCCINATE XR 50 MG TAB PO SCH (08:45)
[2018-09-11] MEDS: SENNOSIDES 1 TAB PO SCH ×2 (08:47→20:04)
[2018-09-11] MEDS: POLYETHYLENE GLYCOL 3350 17 GM PKT PO SCH (08:47)
[2018-09-11] MEDS: AQUAPHOR OINTMENT 3.5 OZ JAR TP SCH ×2 (08:49→19:58)
--- NOTE | 2018-09-11 10:53 | SOAPPROG ---
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 * Initial functional independence measure is 25 on 09/01/2017; improved to 46 as of 09/08/2018 moderate to maximal assist for bed mobility. Sit to stand with minimal assist. Sliding board transfer with contact guard to minimal assist. Squat pivot transfer with minimal assist. He gets fatigued with prolonged standing. Grooming and hygiene are done standing with minimal assist to standby assist. Right leg normal and apraxia affect upper body dressing which requires moderate to maximal assist and lower body dressing is done in bed with maximal to total assist. Bathing requires maximal assist. Transfer requires total assist to bathe. He is beginning to have return of right upper extremity motor function at the scapula with adduction and at the biceps.. * Was able to ambulate 10 ft at the rail with moderate assist on 09/09/2018. * Continue PT and OT to optimize mobility and activities of daily living. Expressive aphasia, severe, and receptive aphasia, moderate. 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 * Has recovered social language. * Continue Speech and Language Pathology. Dysphagia. Advanced from dysphagia 2 to dysphagia 3 diet. * Continue Speech and Language Pathology. Hypertension. Blood pressure on 09/11 131/79. Continue medications with amlodipine 10 mg daily, losartan 100 mg daily, and metoprolol XR 50 mg daily. Blood pressure will be monitored, and medications will be adjusted as needed. Hypokalemia. Normal magnesium. * Hypertension and hypokalemia with urinary potassium loss raises the possibility of hyperaldosteronism. However plasma aldosterone concentration is below the detectable limit and plasma renin activity is slightly high, ruling out primary aldosteronism. Consider renovascular hypertension. * Improved hydration and normal potassium on BMP 09/06/2018. Will decrease potassium supplement to 20 mEq daily before lunch, as it may be contributing to nausea in the morning. * Will not consider spironolactone due to nocturia and difficulty obtaining labs for monitoring potassium. * Will check potassium in morning of 09/12 Dyspepsia. EKG and labs yesterday negative for cardiac ischemia. Anemia is resolved. * Trial of famotidine 20 mg twice daily starting 09/10/2018. He is still complaining of dyspepsia like symptoms. Will check med list and possibly add p.r.n. Maalox or Tums Nausea. This may be secondary to dyspepsia Tramadol may contribute. Will discontinue and initiate oxycodone at low dose, 2.5-5 mg q.4 hours as needed. Change potassium to single dose before lunch each day. Continue ondansetron as needed. * Much improved. Right shoulder pain with possible injury in the hospital. He had x-ray showing no bony defects, so presumably it is a soft tissue injury. History of a shoulder replacement * Began scheduled acetaminophen at 1000 mg q.8 h. and tramadol 50 mg q.6 hours p.r.n. on 08/30/2018. * Added scheduled tramadol 50 mg three times daily starting 08/31/2017. Changed to oxycodone on 09/06/2018; used that evening has not since. * Initiate diclofenac gel, 09/01/2017. Insomnia? He indicates difficulty falling asleep and nurse reported frequent awakenings to urinate. Postvoid residual was low at 85 so unclear if he would benefit from on alpha wen. Start melatonin 3 mg at HS on 08/31/2018. Continue to monitor. * Urinalysis is normal. * Oxybutynin at 2.5 and then titrated to 5 mg at bedtime has not been effective. Condom catheter at night will not stay in place. He is on a toileting schedule but does not move urinate until he is ready. No easy solution to nocturia. Continue efforts of nursing. Slight elevation of D-dimer on labs from 09/09/2018. He has no signs or symptoms of DVT or pulmonary embolus. Though he is at risk due to age, obesity and hemiplegia, he is also on apixaban which is sufficient for prophylaxis. Will not pursue further. Skin tears, right upper extremity. Healing well. Continue Allyven dressings. Dyslipidemia. Continue atorvastatin at 80 mg p.o. at bedtime. Secondary prevention of CVA, with likely atrial fibrillation or flutter as an etiology. Continue apixaban 5 mg twice daily. Depressed mood and facilitation of neuro recovery. Changed from citalopram to fluoxetine starting 09/06/2017, due to reduced likelihood of prolonging QT together with ondansetron. History of alcohol abuse and possible dependence. He is far enough out that there is no longer any concern for alcohol withdrawal. Macrocytosis him this improved compared to labs when he 1st presented at [facility] on . B12 levels normal.. He has been treated with thiamine, which will be continued until he is taking all of his nutritional needs through his regular diet. Prophylaxis. He is on apixaban due to likely atrial fibrillation, and this will suffice for DVT prophylaxis. He has no history of GI bleeding, and he is no longer critically ill. Will not initiate a proton pump inhibitor or H2 wen. DISPOSITION: Lives in a 3 level home with his . There is no better more bathroom on the main level. They plan to add stair lifts. Good family support. Very significant debility. Expected length of stay 4-6 weeks, with tentative discharge 09/27/2018 - 10/11/2018. Plan: 09/11/18 10:43 Subjective: Patient is aphasic but is able to answer yes or no. He denies headache, shortness of breath or anginal like symptoms. He does answer yes to questions regarding dyspepsia. No problems reported by nursing staff. Objective: Vital Signs Temp Pulse Resp BP Pulse Ox 36.4 C 72 18 131/79 H 96 09/11/18 07:50 09/11/18 08:45 09/11/18 07:50 09/11/18 08:45 09/11/18 07:50 Laboratory Results 09/09/18 15:15 09/09/18 15:15 09/10/18 09/11/18 09/12/18 05:59 05:59 05:59 Intake Total 640 1211 Output Total 850 1250 50 Balance -210 -39 -50 PT 15.2 SEC (12.0-15.0) H 09/09/18 15:15 INR 1.18 (0.83-1.16) H 09/09/18 15:15 Physical Exam - Physical Exam General Appearance: WD/WN, alert, no apparent distress Neck: non-tender, full range of motion, supple Respiratory: lungs clear, normal breath sounds Cardiac/Chest: No edema Abdomen: normal bowel sounds, non-tender, soft Skin: warm/dry Extremities: No swelling, No Ericka's sign Neuro/Psych: aphasia, motor weakness (Right hemiparesis. He is able to flex the right hip, 3-/5 and extend right leg 3-/5. Right upper extremity weakness slightly more pronounced but has partial biceps flexion), speech abnormalities ( Aphasia. Is able to answer yes and no to questions.) ICD10 Worksheet Patient Problems: Problems Problem Status Onset Atrial flutter Acute Chest pain Acute atrial flutter Acute
[2018-09-11] MEDS: POTASSIUM CL 10 MEQ TAB PO SCH (11:38)
[2018-09-11] MEDS: ATORVASTATIN CALCIUM 40 MG TAB PO SCH (19:52)
[2018-09-11] MEDS: MELATONIN 3 MG TAB PO SCH (19:52)
[2018-09-12] MEDS: ACETAMINOPHEN 500 MG TAB PO SCH ×3 (04:57→19:48)
[2018-09-12] MEDS: DICLOFENAC SODIUM 1% 100 GM GEL TP SCH ×4 (05:00→19:49)
[2018-09-12] MEDS: APIXABAN 5 MG TAB PO SCH ×2 (08:28→19:48)
[2018-09-12] MEDS: FAMOTIDINE 20 MG TAB PO SCH ×2 (08:28→19:49)
[2018-09-12] MEDS: FLUoxetine 20 MG CAP PO SCH (08:28)
[2018-09-12] MEDS: THIAMINE HCL 100 MG TAB PO SCH (08:28)
[2018-09-12] MEDS: LOSARTAN POTASSIUM 50 MG TAB PO SCH (08:29)
[2018-09-12] MEDS: METOPROLOL SUCCINATE XR 50 MG TAB PO SCH (08:29)
[2018-09-12] MEDS: POLYETHYLENE GLYCOL 3350 17 GM PKT PO SCH (08:30)
[2018-09-12] MEDS: SENNOSIDES 1 TAB PO SCH ×2 (08:30→19:25)
[2018-09-12] MEDS: AQUAPHOR OINTMENT 3.5 OZ JAR TP SCH ×2 (08:34→19:50)
--- NOTE | 2018-09-12 08:42 | SOAPPROG ---
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 * Initial functional independence measure is 25 on 09/01/2017; improved to 46 as of 09/08/2018 moderate to maximal assist for bed mobility. Sit to stand with minimal assist. Sliding board transfer with contact guard to minimal assist. Squat pivot transfer with minimal assist. He gets fatigued with prolonged standing. Grooming and hygiene are done standing with minimal assist to standby assist. Right leg normal and apraxia affect upper body dressing which requires moderate to maximal assist and lower body dressing is done in bed with maximal to total assist. Bathing requires maximal assist. Transfer requires total assist to bathe. He is beginning to have return of right upper extremity motor function at the scapula with adduction and at the biceps.. * Was able to ambulate 10 ft at the rail with moderate assist on 09/09/2018. * Continue PT and OT to optimize mobility and activities of daily living. RIGHT HEEL CORD TIGHTNESS-WILL ASK PHYSICAL THERAPY TO PERFORM GENTLE HEEL CORD STRETCHING AND POSSIBLY INSTRUCT NURSING STAFF TO ASSIST WITH THIS IN BETWEEN THERAPY SESSIONS. Expressive aphasia, severe, and receptive aphasia, moderate. 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 * Has recovered social language. * Continue Speech and Language Pathology. Dysphagia. Advanced from dysphagia 2 to dysphagia 3 diet. * Continue Speech and Language Pathology. Hypertension. Blood pressure on 09/12 130/86. Continue medications with amlodipine 10 mg daily, losartan 100 mg daily, and metoprolol XR 50 mg daily. Blood pressure will be monitored, and medications will be adjusted as needed. Hypokalemia. Normal magnesium. * Hypertension and hypokalemia with urinary potassium loss raises the possibility of hyperaldosteronism. However plasma aldosterone concentration is below the detectable limit and plasma renin activity is slightly high, ruling out primary aldosteronism. Consider renovascular hypertension. * Improved hydration and normal potassium on BMP 09/06/2018. Will decrease potassium supplement to 20 mEq daily before lunch, as it may be contributing to nausea in the morning. * Will not consider spironolactone due to nocturia and difficulty obtaining labs for monitoring potassium. * BASED ON RECENT POTASSIUM LEVEL OF 4.7 FROM 09/09 WILL DEFER CHECKING POTASSIUM LEVEL Dyspepsia. EKG and labs yesterday negative for cardiac ischemia. Anemia is resolved. * Trial of famotidine 20 mg twice daily starting 09/10/2018. He is still complaining of dyspepsia like symptoms. Will check med list and possibly add p.r.n. Maalox or Tums Nausea. This may be secondary to dyspepsia DUE TO Tramadol may contribute. Will discontinue and initiate oxycodone at low dose, 2.5-5 mg q.4 hours as needed. Change potassium to single dose before lunch each day. Continue ondansetron as needed. * Much improved. Right shoulder pain with possible injury in the hospital. HE CURRENTLY DENIES RIGHT SHOULDER PAIN He had x-ray showing no bony defects, so presumably it is a soft tissue injury. History of a shoulder replacement * Began scheduled acetaminophen at 1000 mg q.8 h. and tramadol 50 mg q.6 hours p.r.n. on 08/30/2018. * Added scheduled tramadol 50 mg three times daily starting 08/31/2017. Changed to oxycodone on 09/06/2018; used that evening has not since. * Initiate diclofenac gel, 09/01/2017. Insomnia? He indicates difficulty falling asleep and nurse reported frequent awakenings to urinate. Postvoid residual was low at 85 so unclear if he would benefit from on alpha wen. Start melatonin 3 mg at HS on 08/31/2018. Continue to monitor. * Urinalysis is normal. * Oxybutynin at 2.5 and then titrated to 5 mg at bedtime has not been effective. Condom catheter at night will not stay in place. He is on a toileting schedule but does not move urinate until he is ready. No easy solution to nocturia. Continue efforts of nursing. Slight elevation of D-dimer on labs from 09/09/2018. He has no signs or symptoms of DVT or pulmonary embolus. Though he is at risk due to age, obesity and hemiplegia, he is also on apixaban which is sufficient for prophylaxis. Will not pursue further. Skin tears, right upper extremity. Healing well. Continue Allyven dressings. Dyslipidemia. Continue atorvastatin at 80 mg p.o. at bedtime. Secondary prevention of CVA, with likely atrial fibrillation or flutter as an etiology. Continue apixaban 5 mg twice daily. Depressed mood and facilitation of neuro recovery. Changed from citalopram to fluoxetine starting 09/06/2017, due to reduced likelihood of prolonging QT together with ondansetron. History of alcohol abuse and possible dependence. He is far enough out that there is no longer any concern for alcohol withdrawal. Macrocytosis him this improved compared to labs when he 1st presented at [facility] on . B12 levels normal.. He has been treated with thiamine, which will be continued until he is taking all of his nutritional needs through his regular diet. Prophylaxis. He is on apixaban due to likely atrial fibrillation, and this will suffice for DVT prophylaxis. He has no history of GI bleeding, and he is no longer critically ill. Will not initiate a proton pump inhibitor or H2 wen. DISPOSITION: Lives in a 3 level home with his . There is no better more bathroom on the main level. They plan to add stair lifts. Good family support. Very significant debility. Expected length of stay 4-6 weeks, with tentative discharge 09/27/2018 - 10/11/2018. Subjective: NO PROBLEMS REPORTED BY THERAPY STAFF THIS MORNING. PATIENT ANSWERS NO TO CHEST PAIN, SHORTNESS OF BREATH, DYSPEPSIA OR PAIN. Objective: Vital Signs Temp Pulse Resp BP Pulse Ox 36.5 C 85 16 130/86 H 96 09/12/18 05:06 09/12/18 08:29 09/12/18 05:06 09/12/18 08:29 09/12/18 05:06 Laboratory Results 09/09/18 15:15 09/09/18 15:15 09/11/18 09/12/18 09/13/18 05:59 05:59 05:59 Intake Total 1211 970 Output Total 1250 900 Balance -39 70 PT 15.2 SEC (12.0-15.0) H 09/09/18 15:15 INR 1.18 (0.83-1.16) H 09/09/18 15:15 Physical Exam - Physical Exam General Appearance: WD/WN, alert, no apparent distress Respiratory: lungs clear, normal breath sounds Cardiac/Chest: other (NO RIGHT UPPER EXTREMITY EDEMA. NO LOWER EXTREMITY EDEMA. ), No edema Abdomen: non-tender, soft, other Male Genitalia: normal genitalia (NO SUPRAPUBIC TENDERNESS) Skin: other (MULTIPLE ECCHYMOSES RIGHT UPPER EXTREMITY.) Extremities: No swelling, No Ericka's sign Neuro/Psych: alert, aphasia (EXPRESSIVE GREATER THAN RECEPTIVE. FOLLOWS VERBAL COMMANDS.), motor weakness, speech abnormalities (RIGHT HEMIPARESIS WITH RIGHT UPPER EXTREMITY WEAKNESS GREATER THAN RIGHT LOWER EXTREMITY WEAKNESS. 2+/5 RIGHT DELTOID AND BICEPS, 2 + 3-/5 RIGHT HIP FLEXORS AND KNEE EXTENSORS. IS ABLE TO DORSIFLEX RIGHT FOOT BUT HAS HEEL CORD TIGHTNESS WHICH LIMITS) ICD10 Worksheet Patient Problems: Problems Problem Status Onset Atrial flutter Acute Chest pain Acute atrial flutter Acute
[2018-09-12] MEDS: POTASSIUM CL 10 MEQ TAB PO SCH (11:52)
[2018-09-12] MEDS: MELATONIN 3 MG TAB PO SCH (19:48)
[2018-09-12] MEDS: ATORVASTATIN CALCIUM 40 MG TAB PO SCH (19:48)
[2018-09-13] MEDS: ACETAMINOPHEN 500 MG TAB PO SCH ×3 (05:24→20:35)
[2018-09-13] MEDS: DICLOFENAC SODIUM 1% 100 GM GEL TP SCH ×4 (05:29→20:36)
[2018-09-13] MEDS: SENNOSIDES 1 TAB PO SCH ×2 (08:53→20:35)
[2018-09-13] MEDS: FAMOTIDINE 20 MG TAB PO SCH ×2 (08:53→20:36)
[2018-09-13] MEDS: APIXABAN 5 MG TAB PO SCH ×2 (08:53→20:35)
[2018-09-13] MEDS: THIAMINE HCL 100 MG TAB PO SCH (08:53)
[2018-09-13] MEDS: FLUoxetine 20 MG CAP PO SCH (08:53)
[2018-09-13] MEDS: LOSARTAN POTASSIUM 50 MG TAB PO SCH (08:54)
[2018-09-13] MEDS: METOPROLOL SUCCINATE XR 50 MG TAB PO SCH (08:56)
[2018-09-13] MEDS: POLYETHYLENE GLYCOL 3350 17 GM PKT PO SCH (08:59)
[2018-09-13] MEDS: AQUAPHOR OINTMENT 3.5 OZ JAR TP SCH ×2 (09:24→20:37)
--- NOTE | 2018-09-13 11:53 | SOAPPROG ---
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 * Initial functional independence measure is 25 on 09/01/2017; improved to 46 as of 09/08/2018 moderate to maximal assist for bed mobility. Sit to stand with minimal assist. Sliding board transfer with contact guard to minimal assist. Squat pivot transfer with minimal assist. He gets fatigued with prolonged standing. Grooming and hygiene are done standing with minimal assist to standby assist. Right leg normal and apraxia affect upper body dressing which requires moderate to maximal assist and lower body dressing is done in bed with maximal to total assist. Bathing requires maximal assist. Transfer requires total assist to bathe. He is beginning to have return of right upper extremity motor function at the scapula with adduction and at the biceps.. * Was able to ambulate 10 ft at the rail with moderate assist on 09/09/2018. * Continue PT and OT to optimize mobility and activities of daily living. Right swelling-secondary to right hemiparesis and lack of functioning lab. OT to provide either a new lap board or modify the current one so that it properly fits on to wheelchair. OT please provide patient with an exercise sheet that he can self perform right hand exercises to expedite return of wrist and finger flexors and extensors. RIGHT HEEL CORD TIGHTNESS-WILL ASK PHYSICAL THERAPY TO PERFORM GENTLE HEEL CORD STRETCHING AND POSSIBLY INSTRUCT NURSING STAFF TO ASSIST WITH THIS IN BETWEEN THERAPY SESSIONS. Expressive aphasia, severe, and receptive aphasia, moderate. 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 * Has recovered social language. * Continue Speech and Language Pathology. Dysphagia. Advanced from dysphagia 2 to dysphagia 3 diet. * Continue Speech and Language Pathology. Hypertension. Blood pressure on 09/13 108/70. Continue medications with amlodipine 10 mg daily, losartan 100 mg daily, and metoprolol XR 50 mg daily. Blood pressure will be monitored, and medications will be adjusted as needed. LAB WORK. WILL ORDER CBC FOR 09/14 A.M. TO FOLLOW-UP ON PREVIOUSLY ELEVATED WHITE COUNT OF 11.67 Hypokalemia. Normal magnesium. * Hypertension and hypokalemia with urinary potassium loss raises the possibility of hyperaldosteronism. However plasma aldosterone concentration is below the detectable limit and plasma renin activity is slightly high, ruling out primary aldosteronism. Consider renovascular hypertension. * Improved hydration and normal potassium on BMP 09/06/2018. Will decrease potassium supplement to 20 mEq daily before lunch, as it may be contributing to nausea in the morning. * Will not consider spironolactone due to nocturia and difficulty obtaining labs for monitoring potassium. * BASED ON RECENT POTASSIUM LEVEL OF 4.7 FROM 09/09 WILL DEFER CHECKING POTASSIUM LEVEL Dyspepsia. EKG and labs yesterday negative for cardiac ischemia. Anemia is resolved. * Trial of famotidine 20 mg twice daily starting 09/10/2018. He is still complaining of dyspepsia like symptoms. Will check med list and possibly add p.r.n. Maalox or Tums Nausea. This may be secondary to dyspepsia DUE TO Tramadol may contribute. Will discontinue and initiate oxycodone at low dose, 2.5-5 mg q.4 hours as needed. Change potassium to single dose before lunch each day. Continue ondansetron as needed. * Much improved. Right shoulder pain with possible injury in the hospital. HE CURRENTLY DENIES RIGHT SHOULDER PAIN He had x-ray showing no bony defects, so presumably it is a soft tissue injury. History of a shoulder replacement * Began scheduled acetaminophen at 1000 mg q.8 h. and tramadol 50 mg q.6 hours p.r.n. on 08/30/2018. * Added scheduled tramadol 50 mg three times daily starting 08/31/2017. Changed to oxycodone on 09/06/2018; used that evening has not since. * Initiate diclofenac gel, 09/01/2017. Insomnia? He indicates difficulty falling asleep and nurse reported frequent awakenings to urinate. Postvoid residual was low at 85 so unclear if he would benefit from on alpha wen. Start melatonin 3 mg at HS on 08/31/2018. Continue to monitor. * Urinalysis is normal. * Oxybutynin at 2.5 and then titrated to 5 mg at bedtime has not been effective. Condom catheter at night will not stay in place. He is on a toileting schedule but does not move urinate until he is ready. No easy solution to nocturia. Continue efforts of nursing. Slight elevation of D-dimer on labs from 09/09/2018. He has no signs or symptoms of DVT or pulmonary embolus. Though he is at risk due to age, obesity and hemiplegia, he is also on apixaban which is sufficient for prophylaxis. Will not pursue further. Skin tears, right upper extremity. Healing well. Continue Allyven dressings. Dyslipidemia. Continue atorvastatin at 80 mg p.o. at bedtime. Secondary prevention of CVA, with likely atrial fibrillation or flutter as an etiology. Continue apixaban 5 mg twice daily. Depressed mood and facilitation of neuro recovery. Changed from citalopram to fluoxetine starting 09/06/2017, due to reduced likelihood of prolonging QT together with ondansetron. History of alcohol abuse and possible dependence. He is far enough out that there is no longer any concern for alcohol withdrawal. Macrocytosis him this improved compared to labs when he 1st presented at [facility] on . B12 levels normal.. He has been treated with thiamine, which will be continued until he is taking all of his nutritional needs through his regular diet. Prophylaxis. He is on apixaban due to likely atrial fibrillation, and this will suffice for DVT prophylaxis. He has no history of GI bleeding, and he is no longer critically ill. Will not initiate a proton pump inhibitor or H2 wen. DISPOSITION: Lives in a 3 level home with his . There is no better more bathroom on the main level. They plan to add stair lifts. Good family support. Very significant debility. Expected length of stay 4-6 weeks, with tentative discharge 09/27/2018 - 10/11/2018. 09/13/18 11:53 Subjective: No problems reported by patient with the exception of occasional heartburn. Denies left shoulder pain. Denies left hand pain. His was present during morning rounds states that occupational therapy is providing him with either a new or modified lap board. Objective: Vital Signs Temp Pulse Resp BP Pulse Ox 36.5 C 76 16 108/70 94 09/13/18 05:28 09/13/18 08:56 09/13/18 05:28 09/13/18 08:56 09/13/18 05:28 Laboratory Results 09/09/18 15:15 09/09/18 15:15 09/12/18 09/13/18 09/14/18 05:59 05:59 05:59 Intake Total 970 840 Output Total 900 450 200 Balance 70 390 -200 PT 15.2 SEC (12.0-15.0) H 09/09/18 15:15 INR 1.18 (0.83-1.16) H 09/09/18 15:15 Physical Exam - Physical Exam General Appearance: WD/WN, alert, no apparent distress Respiratory: lungs clear, normal breath sounds Cardiac/Chest: regular rate, rhythm, No edema Abdomen: non-tender, soft, other Skin: other (Multiple ecchymoses right upper extremity.) Extremities: swelling (Right hand swelling due to dependent position as patient is currently not using his lap board.), No calf tenderness, No Ericka's sign Neuro/Psych: aphasia, motor weakness (Right hemiplegia with right upper extremity weakness greater than right lower extremity weakness. Can abduct right shoulder greater than 90, can Rodriguez flex right shoulder greater than 90. Has 2+ 3-/5 biceps.), speech abnormalities ICD10 Worksheet Patient Problems: Problems Problem Status Onset Atrial flutter Acute Chest pain Acute atrial flutter Acute
[2018-09-13] MEDS: POTASSIUM CL 10 MEQ TAB PO SCH (15:54)
[2018-09-13] MEDS: MELATONIN 3 MG TAB PO SCH (20:35)
[2018-09-13] MEDS: ATORVASTATIN CALCIUM 40 MG TAB PO SCH (20:35)
[2018-09-14] MEDS: oxyCODONE IR 5 MG TAB PO PRN ×2 (01:22→21:45)
[2018-09-14] MEDS: ACETAMINOPHEN 500 MG TAB PO SCH ×3 (05:54→20:03)
[2018-09-14] MEDS: DICLOFENAC SODIUM 1% 100 GM GEL TP SCH ×4 (05:55→20:03)
[2018-09-14] MEDS: THIAMINE HCL 100 MG TAB PO SCH (08:39)
[2018-09-14] MEDS: SENNOSIDES 1 TAB PO SCH ×2 (08:40→20:04)
[2018-09-14] MEDS: APIXABAN 5 MG TAB PO SCH ×2 (08:41→20:03)
[2018-09-14] MEDS: FLUoxetine 20 MG CAP PO SCH (08:41)
[2018-09-14] MEDS: FAMOTIDINE 20 MG TAB PO SCH ×2 (08:41→20:03)
[2018-09-14] MEDS: LOSARTAN POTASSIUM 50 MG TAB PO SCH (08:48)
[2018-09-14] MEDS: METOPROLOL SUCCINATE XR 50 MG TAB PO SCH (08:49)
[2018-09-14] MEDS: POLYETHYLENE GLYCOL 3350 17 GM PKT PO SCH (08:55)
[2018-09-14] MEDS: AQUAPHOR OINTMENT 3.5 OZ JAR TP SCH ×2 (08:55→20:03)
[2018-09-14] MEDS: POTASSIUM CL 10 MEQ TAB PO SCH (12:33)
--- NOTE | 2018-09-14 13:38 | SOAPPROG ---
SOAP Progress Note Assessment/Plan: 78-year-old male with severe left-sided MCA stroke on 08/18/2018 with right- sided hemiparesis and severe aphasia Today's update: Labs pending for follow-up white blood cell count and potassium given difficult lab draw. Overall making progress from a rehabilitation standpoint, limited somewhat by fatigue. Other issues improving. Potassium was held yesterday but no recent labs, checking today. If within normal limits plan to decrease overall dose from 20 mEq daily to 10 mEq daily, , continuing to monitor. Hand splint is being refabricated, continue rehabilitation plan. A total of 35 min was spent on the floor in the care of the patient, the majority of which was spent in counseling and coordination of care regarding rehabilitation progress and discharge planning. Left MCA stroke on 08/18/2018 with right-sided hemiparesis, aphasia both receptive and expressive, dysphagia * Continue PT, OT, speech for impairments in mobility, self-care, speech, cognition, dysphagia. * Resting hand splint and tray being fabricated by occupational therapy * Gentle stretching for immobility and spasticity management * Modified diet, increasing as tolerated Hypertension: Essential, however previously noted that concurrent urine potassium loss raises the possibility of hyperaldosteronism * Continue current amlodipine, losartan, and metoprolol. Monitor * Monitor electrolytes, checking potassium. * Continue potassium supplementation as long as indicated Elevated white blood cell count: Has been afebrile, no localizing symptoms. * Follow-up on white blood cell count previously ordered but difficult to draw. Dyspepsia: During hospitalization, ECG and labs were negative for any angina equivalent or cardiac ischemia. * Continue famotidine * Continue p.r.n. 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 * Monitor Skin tears in the right upper extremity * Continue wound care, caution when mobilizing Secondary stroke prevention: * Continue atorvastatin 80 mg at bedtime * Continue apixaban 5 mg twice a day with possible atrial fibrillation or atrial flutter as an etiology of stroke * Continue fluoxetine both for neural recovery as well as depressed mood Depressed mood, alcohol use: * Continue fluoxetine, changed from citalopram * Continue counseling for alcohol use on discharge. 09/09/18 08:56 09/14/18 13:24 Subjective: Chief complaint: Rehabilitation progress No acute events overnight. Patient denies any new shortness of breath or chest pain, no new numbness, tingling, or weakness. Difficult lab draws, was not able to draw white blood cell count or potassium so far. Patient denies any pain, notes that his hand splint is being fabricated and repaired by Occupational therapy today. Objective: Vital Signs Temp Pulse Resp BP Pulse Ox 36.6 C 82 16 122/74 H 96 09/14/18 08:00 09/14/18 08:49 09/14/18 08:00 09/14/18 08:49 09/14/18 08:00 Laboratory Results 09/09/18 15:15 09/09/18 15:15 09/13/18 09/14/18 09/15/18 05:59 05:59 05:59 Intake Total 840 890 480 Output Total 450 1025 200 Balance 390 -135 280 PT 15.2 SEC (12.0-15.0) H 09/09/18 15:15 INR 1.18 (0.83-1.16) H 09/09/18 15:15 Physical Exam - Physical Exam General Appearance: WD/WN, alert, no apparent distress EENT: No scleral icterus (R), No scleral icterus (L) Respiratory: No respiratory distress, No accessory muscle use Cardiac/Chest: normal peripheral pulses, regular rate, rhythm, No edema Skin: normal color, warm/dry, other (Multiple areas of skin injury on the right arm, covered with dressing), No cyanosis, No diaphoresis Extremities: No swelling Neuro/Psych: alert, normal mood/affect, motor weakness (Dense right-sided hemiparesis, able to abduct shoulder to 90 actively, no hand movement), speech abnormalities (Dense aphasia) ICD10 Worksheet Patient Problems: Problems Problem Status Onset Atrial flutter Acute Chest pain Acute atrial flutter Acute
[2018-09-14 19:08] LABS: PLATELET COUNT 174 10^3/uL (150-400)
[2018-09-14] MEDS: ATORVASTATIN CALCIUM 40 MG TAB PO SCH (20:03)
[2018-09-14] MEDS: MELATONIN 3 MG TAB PO SCH (20:03)
[2018-09-15] MEDS: DICLOFENAC SODIUM 1% 100 GM GEL TP SCH ×4 (06:17→20:39)
[2018-09-15] MEDS: ACETAMINOPHEN 500 MG TAB PO SCH ×3 (06:17→20:38)
[2018-09-15] MEDS: THIAMINE HCL 100 MG TAB PO SCH (08:24)
[2018-09-15] MEDS: FLUoxetine 20 MG CAP PO SCH (08:24)
[2018-09-15] MEDS: FAMOTIDINE 20 MG TAB PO SCH ×2 (08:24→20:38)
[2018-09-15] MEDS: METOPROLOL SUCCINATE XR 50 MG TAB PO SCH (08:24)
[2018-09-15] MEDS: LOSARTAN POTASSIUM 50 MG TAB PO SCH (08:24)
[2018-09-15] MEDS: APIXABAN 5 MG TAB PO SCH ×2 (08:24→20:38)
[2018-09-15] MEDS: SENNOSIDES 1 TAB PO SCH ×2 (08:24→20:38)
[2018-09-15] MEDS: POLYETHYLENE GLYCOL 3350 17 GM PKT PO SCH (08:25)
--- NOTE | 2018-09-15 12:13 | SOAPPROG ---
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 * Initial functional independence measure is 25 on 09/01/2017; improved to 37 as of 09/08/2018, and to 49 as of 09/15/2018. Minimal to moderate assist for bed mobility to get his legs back into bed. Contact guard assist to minimal assist for transfers. Ambulated 25 ft with minimal assist and front wheeled walker. Does grooming and hygiene seated with standby assist. Upper body dressing requires minimal assist and lower body dressing requires moderate to maximal assist. He required assist of 2 people to transfer into the shower. Bathing was done with moderate assist. * Continue PT and OT to optimize mobility and activities of daily living. Expressive aphasia, severe, and receptive aphasia, moderate. 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 * Has recovered social language. * Continue Speech and Language Pathology. Dysphagia. Advanced from dysphagia 2, to dysphagia 3 diet, to regular texture and thin liquids as of 09/15/2018. * Continue Speech and Language Pathology. Hypertension. Continue medications with amlodipine 10 mg daily, losartan 100 mg daily, and metoprolol XR 50 mg daily. Blood pressure will be monitored, and medications will be adjusted as needed. Hypokalemia. Normal magnesium. * Hypertension and hypokalemia with urinary potassium loss raises the possibility of hyperaldosteronism. However plasma aldosterone concentration is below the detectable limit and plasma renin activity is slightly high, ruling out primary aldosteronism. Consider renovascular hypertension. * Improved hydration and normal potassium on BMP 09/06/2018. Will decrease potassium supplement to 20 mEq daily before lunch, as it may be contributing to nausea in the morning. * Will not consider spironolactone due to nocturia and difficulty obtaining labs for monitoring potassium. Dyspepsia. EKG and labs yesterday negative for cardiac ischemia. Anemia is resolved. * Trial of famotidine 20 mg twice daily starting 09/10/2018. Nausea. Tramadol may contribute. Will discontinue and initiate oxycodone at low dose, 2.5-5 mg q.4 hours as needed. Change potassium to single dose before lunch each day. Continue ondansetron as needed. * Much improved. Right shoulder pain with possible injury in the hospital. He had x-ray showing no bony defects, so presumably it is a soft tissue injury. History of a shoulder replacement * Began scheduled acetaminophen at 1000 mg q.8 h. and tramadol 50 mg q.6 hours p.r.n. on 08/30/2018. * Added scheduled tramadol 50 mg three times daily starting 08/31/2017. Changed to oxycodone on 09/06/2018; used that evening has not since. * Initiate diclofenac gel, 09/01/2017. Insomnia? He indicates difficulty falling asleep and nurse reported frequent awakenings to urinate. Postvoid residual was low at 85 so unclear if he would benefit from on alpha wen. Start melatonin 3 mg at HS on 08/31/2018. Continue to monitor. * Urinalysis is normal. * Oxybutynin at 2.5 and then titrated to 5 mg at bedtime has not been effective. Condom catheter at night will not stay in place. He is on a toileting schedule but does not move urinate until he is ready. No easy solution to nocturia. Continue efforts of nursing. Slight elevation of D-dimer on labs from 09/09/2018. He has no signs or symptoms of DVT or pulmonary embolus. Though he is at risk due to age, obesity and hemiplegia, he is also on apixaban which is sufficient for prophylaxis. Will not pursue further. Skin tears, right upper extremity. Healing well. Continue Allyven dressings. Dyslipidemia. Continue atorvastatin at 80 mg p.o. at bedtime. Secondary prevention of CVA, with likely atrial fibrillation or flutter as an etiology. Continue apixaban 5 mg twice daily. Depressed mood and facilitation of neuro recovery. Changed from citalopram to fluoxetine starting 09/06/2017, due to reduced likelihood of prolonging QT together with ondansetron. History of alcohol abuse and possible dependence. He is far enough out that there is no longer any concern for alcohol withdrawal. Macrocytosis him this improved compared to labs when he 1st presented at [facility] on . B12 levels normal.. He has been treated with thiamine, which will be continued until he is taking all of his nutritional needs through his regular diet. Prophylaxis. He is on apixaban due to likely atrial fibrillation, and this will suffice for DVT prophylaxis. He has no history of GI bleeding, and he is no longer critically ill. Will not initiate a proton pump inhibitor or H2 wen. DISPOSITION: Attended staffing, 15 min. Discussed with case management, dietitian, nursing, PT, OT, TRAINING DEVELOPMENT SPECIALIST. Lives in a 3 level home with his . Goal to return home and to be able to ambulate shorts distances with contact guard to minimal assist. There is no bedroom or bathroom on the main level. They plan to add stair lifts. Good family support. Very significant debility. Expected length of stay 4-6 weeks, with tentative discharge 09/27/2018 - 2018. Followup. His reports that his primary care provider is Kimberly Mchugh, whom he can see after discharge. He was seen by Dr. Alatorre of [facility], and we will determine during his stay whether he should follow up with [facility] or with neurologists in [place]. 09/15/18 12:08 Subjective: Continues to complain of poor sleep at night with multiple interruptions to urinate. He is not sleepy during the day however. Pain in shoulders is adequately controlled. He is in good spirits and feels he is making good progress. Objective: Vital Signs Temp Pulse Resp BP Pulse Ox 36 C 77 16 120/66 96 09/15/18 06:42 09/15/18 06:42 09/15/18 06:42 09/15/18 06:42 09/15/18 06:42 Laboratory Results 09/14/18 06:00 09/14/18 09:48 09/14/18 09/15/18 09/16/18 05:59 05:59 05:59 Intake Total 890 1200 480 Output Total 1025 550 150 Balance -135 650 330 PT 15.2 SEC (12.0-15.0) H 09/09/18 15:15 INR 1.18 (0.83-1.16) H 09/09/18 15:15 - Time Spent With Patient Time Spent With Patient: Greater than 35 min staff time today, including more than 50% of time in coordination of care during staffing, and counseling patient. Physical Exam - Physical Exam General Appearance: WD/WN, alert, no apparent distress Respiratory: normal breath sounds, No crackles, No rhonchi, No wheezing Cardiac/Chest: regular rate, rhythm, No edema, No JVD, No diastolic murmur, No systolic murmur Skin: normal color, warm/dry, other (Multiple bandaged skin tears on right upper extremity) Neuro/Psych: alert, normal mood/affect, oriented x 3, aphasia, motor weakness ( Right side) ICD10 Worksheet Patient Problems: Problems Problem Status Onset Atrial flutter Acute Chest pain Acute atrial flutter Acute
[2018-09-15] MEDS: POTASSIUM CL 10 MEQ TAB PO SCH (12:14)
[2018-09-15] MEDS: AQUAPHOR OINTMENT 3.5 OZ JAR TP SCH ×2 (14:27→20:39)
[2018-09-15] MEDS: MAG HYDROX/AL HYDROX/SIMETH 30 ML UDCUP PO PRN (17:14)
[2018-09-15] MEDS: MELATONIN 3 MG TAB PO SCH (20:38)
[2018-09-15] MEDS: ATORVASTATIN CALCIUM 40 MG TAB PO SCH (20:39)
[2018-09-15] MEDS: oxyCODONE IR 5 MG TAB PO PRN (21:01)
[2018-09-15] MEDS: traZODone 50 MG TAB PO PRN (23:47)
[2018-09-16] MEDS: ACETAMINOPHEN 500 MG TAB PO SCH ×3 (07:09→19:34)
[2018-09-16] MEDS: DICLOFENAC SODIUM 1% 100 GM GEL TP SCH ×4 (07:09→19:35)
[2018-09-16] MEDS: FAMOTIDINE 20 MG TAB PO SCH ×2 (08:07→19:35)
[2018-09-16] MEDS: FLUoxetine 20 MG CAP PO SCH (08:11)
[2018-09-16] MEDS: APIXABAN 5 MG TAB PO SCH ×2 (08:11→19:35)
[2018-09-16] MEDS: POLYETHYLENE GLYCOL 3350 17 GM PKT PO SCH (08:11)
[2018-09-16] MEDS: SENNOSIDES 1 TAB PO SCH ×2 (08:11→19:35)
[2018-09-16] MEDS: LOSARTAN POTASSIUM 50 MG TAB PO SCH (08:12)
[2018-09-16] MEDS: METOPROLOL SUCCINATE XR 50 MG TAB PO SCH (08:12)
[2018-09-16] MEDS: THIAMINE HCL 100 MG TAB PO SCH (09:13)
[2018-09-16] MEDS: POTASSIUM CL 10 MEQ TAB PO SCH (13:03)
[2018-09-16] MEDS: AQUAPHOR OINTMENT 3.5 OZ JAR TP SCH ×2 (13:04→19:35)
--- NOTE | 2018-09-16 13:47 | SOAPPROG ---
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 * Initial functional independence measure is 25 on 09/01/2017; improved to 37 as of 09/08/2018, and to 49 as of 09/15/2018. Minimal to moderate assist for bed mobility to get his legs back into bed. Contact guard assist to minimal assist for transfers. Ambulated 25 ft with minimal assist and front wheeled walker. Does grooming and hygiene seated with standby assist. Upper body dressing requires minimal assist and lower body dressing requires moderate to maximal assist. He required assist of 2 people to transfer into the shower. Bathing was done with moderate assist. * Continue PT and OT to optimize mobility and activities of daily living. Expressive aphasia, severe, and receptive aphasia, moderate. 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 * Has recovered social language. * Continue Speech and Language Pathology. Dysphagia. Advanced from dysphagia 2, to dysphagia 3 diet, to regular texture and thin liquids as of 09/15/2018. * Continue Speech and Language Pathology. Hypertension. Continue medications with amlodipine 10 mg daily, losartan 100 mg daily, and metoprolol XR 50 mg daily. * Adequate control Hypokalemia. Normal magnesium. * Hypertension and hypokalemia with urinary potassium loss raises the possibility of hyperaldosteronism. However plasma aldosterone concentration is below the detectable limit and plasma renin activity is slightly high, ruling out primary aldosteronism. Consider renovascular hypertension. * Improved hydration and normal potassium on BMP 09/06/2018. Will decrease potassium supplement to 20 mEq daily before lunch, as it may be contributing to nausea in the morning. * Will not consider spironolactone due to nocturia and difficulty obtaining labs for monitoring potassium. Dyspepsia. EKG and labs negative for cardiac ischemia. Anemia is resolved. * Trial of famotidine 20 mg twice daily starting 09/10/2018. Nausea. Tramadol may contribute. Will discontinue and initiate oxycodone at low dose, 2.5-5 mg q.4 hours as needed. Change potassium to single dose before lunch each day. Continue ondansetron as needed. * Much improved. Right shoulder pain with possible injury in the hospital. He had x-ray showing no bony defects, so presumably it is a soft tissue injury. History of a shoulder replacement * Began scheduled acetaminophen at 1000 mg q.8 h. and tramadol 50 mg q.6 hours p.r.n. on 08/30/2018. * Added scheduled tramadol 50 mg three times daily starting 08/31/2017. Changed to oxycodone on 09/06/2018; using 2.5 mg once or twice a day.. * Initiate diclofenac gel, 09/01/2017. Insomnia? He indicates difficulty falling asleep and nurse reported frequent awakenings to urinate. Postvoid residual was low at 85 so unclear if he would benefit from on alpha wen. Start melatonin 3 mg at HS on 08/31/2018. Continue to monitor. * Urinalysis is normal. * Oxybutynin at 2.5 and then titrated to 5 mg at bedtime has not been effective. Condom catheter at night will not stay in place. He is on a toileting schedule but does not move urinate until he is ready. No easy solution to nocturia. Continue efforts of nursing. Slight elevation of D-dimer on labs from 09/09/2018. He has no signs or symptoms of DVT or pulmonary embolus. Though he is at risk due to age, obesity and hemiplegia, he is also on apixaban which is sufficient for prophylaxis. Will not pursue further. Skin tears, right upper extremity. Healing well. Continue Allyven dressings. Dyslipidemia. Continue atorvastatin at 80 mg p.o. at bedtime. Secondary prevention of CVA, with likely atrial fibrillation or flutter as an etiology. Continue apixaban 5 mg twice daily. Depressed mood and facilitation of neuro recovery. Changed from citalopram to fluoxetine starting 09/06/2017, due to reduced likelihood of prolonging QT together with ondansetron. History of alcohol abuse and possible dependence. He is far enough out that there is no longer any concern for alcohol withdrawal. Macrocytosis him this improved compared to labs when he 1st presented at [facility] on . B12 levels normal.. He has been treated with thiamine, which will be continued until he is taking all of his nutritional needs through his regular diet. Prophylaxis. He is on apixaban due to likely atrial fibrillation, and this will suffice for DVT prophylaxis. He has no history of GI bleeding, and he is no longer critically ill. Will not initiate a proton pump inhibitor or H2 wen. DISPOSITION: Lives in a 3 level home with his . Goal to return home and to be able to ambulate shorts distances with contact guard to minimal assist. There is no bedroom or bathroom on the main level. They plan to add stair lifts. Good family support. Very significant debility. Expected length of stay 4-6 weeks, with tentative discharge 09/27/2018 - 10/11/2018. Followup. His reports that his primary care provider is Kimberly Mchugh, whom he can see after discharge. He was seen by Dr. Alatorre of [facility], and we will determine during his stay whether he should follow up with [facility] or with neurologists in [place]. 09/16/18 13:43 Subjective: No complaints. Sleeping better. Therapy staff note less fatigue. Objective: Vital Signs Temp Pulse Resp BP Pulse Ox 36.9 C 68 17 122/76 H 94 09/16/18 06:07 09/16/18 06:07 09/16/18 06:07 09/16/18 06:07 09/16/18 06:07 Laboratory Results 09/14/18 06:00 09/14/18 09:48 09/15/18 09/16/18 09/17/18 05:59 05:59 05:59 Intake Total 1200 1450 775 Output Total 550 360 0 Balance 650 1090 775 PT 15.2 SEC (12.0-15.0) H 09/09/18 15:15 INR 1.18 (0.83-1.16) H 09/09/18 15:15 Physical Exam - Physical Exam General Appearance: WD/WN, alert, no apparent distress Respiratory: normal breath sounds, No crackles, No rhonchi, No wheezing Cardiac/Chest: regular rate, rhythm, No edema, No diastolic murmur, No systolic murmur Skin: normal color, warm/dry, other (Skin tears with dressings on right arm.) Neuro/Psych: alert, normal mood/affect, oriented x 3, aphasia (Improved ability with verbal expression but still quite limited), motor weakness (Right upper and lower extremities) ICD10 Worksheet Patient Problems: Problems Problem Status Onset Atrial flutter Acute Chest pain Acute atrial flutter Acute
[2018-09-16] MEDS: ATORVASTATIN CALCIUM 40 MG TAB PO SCH (19:34)
[2018-09-16] MEDS: traZODone 50 MG TAB PO PRN (19:34)
[2018-09-16] MEDS: MELATONIN 3 MG TAB PO SCH (19:35)
[2018-09-16] MEDS: oxyCODONE IR 5 MG TAB PO PRN (20:18)
[2018-09-17] MEDS: DICLOFENAC SODIUM 1% 100 GM GEL TP SCH ×4 (05:05→20:47)
[2018-09-17] MEDS: ACETAMINOPHEN 500 MG TAB PO SCH ×3 (05:05→20:46)
[2018-09-17] MEDS: FAMOTIDINE 20 MG TAB PO SCH ×2 (07:13→20:46)
[2018-09-17] MEDS: AQUAPHOR OINTMENT 3.5 OZ JAR TP SCH ×2 (07:29→20:48)
[2018-09-17] MEDS: POLYETHYLENE GLYCOL 3350 17 GM PKT PO SCH (08:30)
[2018-09-17] MEDS: METOPROLOL SUCCINATE XR 50 MG TAB PO SCH (08:31)
[2018-09-17] MEDS: FLUoxetine 20 MG CAP PO SCH (08:31)
[2018-09-17] MEDS: APIXABAN 5 MG TAB PO SCH ×2 (08:31→20:44)
[2018-09-17] MEDS: LOSARTAN POTASSIUM 50 MG TAB PO SCH (08:31)
[2018-09-17] MEDS: SENNOSIDES 1 TAB PO SCH ×2 (08:32→20:48)
[2018-09-17] MEDS: THIAMINE HCL 100 MG TAB PO SCH (08:32)
[2018-09-17] MEDS: POTASSIUM CL 10 MEQ TAB PO SCH (11:31)
--- NOTE | 2018-09-17 14:42 | SOAPPROG ---
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 * Initial functional independence measure is 25 on 09/01/2017; improved to 37 as of 09/08/2018, and to 49 as of 09/15/2018. Minimal to moderate assist for bed mobility to get his legs back into bed. Contact guard assist to minimal assist for transfers. Ambulated 25 ft with minimal assist and front wheeled walker. Does grooming and hygiene seated with standby assist. Upper body dressing requires minimal assist and lower body dressing requires moderate to maximal assist. He required assist of 2 people to transfer into the shower. Bathing was done with moderate assist. * Continue PT and OT to optimize mobility and activities of daily living. Expressive aphasia, severe, and receptive aphasia, moderate. 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 * Has recovered social language. * Continue Speech and Language Pathology. Hypertension. Continue medications with amlodipine 10 mg daily, losartan 100 mg daily, and metoprolol XR 50 mg daily. * Adequate control Insomnia. Frequent awakenings to urinate. Postvoid residual was low at 85 so unclear if he would benefit from on alpha wen. * Urinalysis is normal. * Oxybutynin at 2.5 and then titrated to 5 mg at bedtime has not been effective. Condom catheter at night will not stay in place. He is on a toileting schedule but does not move urinate until he is ready. No easy solution to nocturia. Continue efforts of nursing. * Started melatonin 3 mg at HS on 08/31/2018. Started trazodone 50 mg at bedtime on 09/14/2018. * Advised patient to stay up later than 6:00 p.m. before attempting to go to sleep, because if he went to sleep as 6:00 in the evening and slept 8 hr he would then be awake at 2:00 in the morning. Continue current medications. Hypokalemia. Normal magnesium. * Hypertension and hypokalemia with urinary potassium loss raises the possibility of hyperaldosteronism. However plasma aldosterone concentration is below the detectable limit and plasma renin activity is slightly high, ruling out primary aldosteronism. Consider renovascular hypertension. * Improved hydration and normal potassium on BMP 09/06/2018. Will decrease potassium supplement to 20 mEq daily before lunch, as it may be contributing to nausea in the morning. * Will not consider spironolactone due to nocturia and difficulty obtaining labs for monitoring potassium. Dyspepsia. EKG and labs negative for cardiac ischemia. Anemia is resolved. * Trial of famotidine 20 mg twice daily starting 09/10/2018. Nausea. Tramadol may contribute. Will discontinue and initiate oxycodone at low dose, 2.5-5 mg q.4 hours as needed. Change potassium to single dose before lunch each day. Continue ondansetron as needed. * Much improved. Right shoulder pain with possible injury in the hospital. He had x-ray showing no bony defects, so presumably it is a soft tissue injury. History of a shoulder replacement * Began scheduled acetaminophen at 1000 mg q.8 h. and tramadol 50 mg q.6 hours p.r.n. on 08/30/2018. * Added scheduled tramadol 50 mg three times daily starting 08/31/2017. Changed to oxycodone on 09/06/2018; using 2.5 mg once or twice a day.. * Initiate diclofenac gel, 09/01/2017. Dysphagia. Advanced from dysphagia 2, to dysphagia 3 diet, to regular texture and thin liquids as of 09/15/2018. * Continue Speech and Language Pathology. Slight elevation of D-dimer on labs from 09/09/2018. He has no signs or symptoms of DVT or pulmonary embolus. Though he is at risk due to age, obesity and hemiplegia, he is also on apixaban which is sufficient for prophylaxis. Will not pursue further. Skin tears, right upper extremity. Healing well. Continue Allyven dressings. Dyslipidemia. Continue atorvastatin at 80 mg p.o. at bedtime. Secondary prevention of CVA, with likely atrial fibrillation or flutter as an etiology. Continue apixaban 5 mg twice daily. Depressed mood and facilitation of neuro recovery. Changed from citalopram to fluoxetine starting 09/06/2017, due to reduced likelihood of prolonging QT together with ondansetron. History of alcohol abuse and possible dependence. He is far enough out that there is no longer any concern for alcohol withdrawal. Macrocytosis him this improved compared to labs when he 1st presented at [facility] on . B12 levels normal.. He has been treated with thiamine; will discontinue starting 09/18/2018. Prophylaxis. He is on apixaban due to likely atrial fibrillation, and this will suffice for DVT prophylaxis. He has no history of GI bleeding, and he is no longer critically ill. Will not initiate a proton pump inhibitor or H2 wen. DISPOSITION: Lives in a 3 level home with his . Goal to return home and to be able to ambulate shorts distances with contact guard to minimal assist. There is no bedroom or bathroom on the main level. They plan to add stair lifts. Good family support. Very significant debility. Expected length of stay 4-6 weeks, with tentative discharge 09/27/2018 - 10/11/2018. Followup. His reports that his primary care provider is Kimberly Mchugh, whom he can see after discharge. He was seen by Dr. Alatorre of [facility], and we will determine during his stay whether he should follow up with [facility] or with neurologists in [place]. 09/17/18 14:38 Subjective: Patient has concerns about sleep. Last night he asked for trazodone at about 6: 00 p.m. Later he asked for oxycodone about 9:00 p.m. Nursing was concerned that he is using oxycodone to attain sleep rather than for pain management. Reports that at home he usually goes to sleep at a more usual bedtime later in the evening. Objective: Vital Signs Temp Pulse Resp BP Pulse Ox 36.6 C 73 16 127/80 H 96 09/17/18 05:28 09/17/18 08:27 09/17/18 05:28 09/17/18 08:27 09/17/18 08:27 Laboratory Results 09/14/18 06:00 09/14/18 09:48 09/16/18 09/17/18 09/18/18 05:59 05:59 05:59 Intake Total 1450 1270 1032 Output Total 360 500 150 Balance 1090 770 882 PT 15.2 SEC (12.0-15.0) H 09/09/18 15:15 INR 1.18 (0.83-1.16) H 09/09/18 15:15 Physical Exam - Physical Exam General Appearance: WD/WN, alert, no apparent distress Respiratory: No respiratory distress, No accessory muscle use Skin: normal color, warm/dry Neuro/Psych: alert, normal mood/affect, oriented x 3, motor weakness (Right upper extremity) ICD10 Worksheet Patient Problems: Problems Problem Status Onset Atrial flutter Acute Chest pain Acute atrial flutter Acute
[2018-09-17] MEDS: ATORVASTATIN CALCIUM 40 MG TAB PO SCH (20:44)
[2018-09-17] MEDS: MELATONIN 3 MG TAB PO SCH (20:46)
[2018-09-18] MEDS: traZODone 50 MG TAB PO PRN (00:39)
[2018-09-18] MEDS: ACETAMINOPHEN 500 MG TAB PO SCH ×3 (05:30→20:34)
[2018-09-18] MEDS: DICLOFENAC SODIUM 1% 100 GM GEL TP SCH ×4 (05:31→20:33)
[2018-09-18] MEDS: POLYETHYLENE GLYCOL 3350 17 GM PKT PO SCH (08:43)
[2018-09-18] MEDS: FLUoxetine 20 MG CAP PO SCH (08:44)
[2018-09-18] MEDS: APIXABAN 5 MG TAB PO SCH ×2 (08:45→20:33)
[2018-09-18] MEDS: FAMOTIDINE 20 MG TAB PO SCH ×2 (08:45→20:32)
[2018-09-18] MEDS: LOSARTAN POTASSIUM 50 MG TAB PO SCH (08:46)
[2018-09-18] MEDS: METOPROLOL SUCCINATE XR 50 MG TAB PO SCH (08:49)
[2018-09-18] MEDS: SENNOSIDES 1 TAB PO SCH ×2 (08:50→20:47)
--- NOTE | 2018-09-18 09:38 | SOAPPROG ---
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 * Initial functional independence measure is 25 on 09/01/2017; improved to 37 as of 09/08/2018, and to 49 as of 09/15/2018. Minimal to moderate assist for bed mobility to get his legs back into bed. Contact guard assist to minimal assist for transfers. Ambulated 25 ft with minimal assist and front wheeled walker. Does grooming and hygiene seated with standby assist. Upper body dressing requires minimal assist and lower body dressing requires moderate to maximal assist. He required assist of 2 people to transfer into the shower. Bathing was done with moderate assist. * Continue PT and OT to optimize mobility and activities of daily living. Expressive aphasia, severe, and receptive aphasia, moderate. 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 * Has recovered social language. * Continue Speech and Language Pathology. Hypertension. Continue medications with amlodipine 10 mg daily, losartan 100 mg daily, and metoprolol XR 50 mg daily. * Adequate control Insomnia. Frequent awakenings to urinate. Postvoid residual was low at 85 so unclear if he would benefit from on alpha wen. * Urinalysis is normal. * Oxybutynin at 2.5 and then titrated to 5 mg at bedtime has not been effective. Condom catheter at night will not stay in place. He is on a toileting schedule but does not move urinate until he is ready. No easy solution to nocturia. Continue efforts of nursing. * Started melatonin 3 mg at HS on 08/31/2018. Started trazodone 50 mg at bedtime on 09/14/2018. * Advised patient to stay up later than 6:00 p.m. before attempting to go to sleep, because if he went to sleep as 6:00 in the evening and slept 8 hr he would then be awake at 2:00 in the morning. Continue current medications. Hypokalemia. Normal magnesium. * Hypertension and hypokalemia with urinary potassium loss raises the possibility of hyperaldosteronism. However plasma aldosterone concentration is below the detectable limit and plasma renin activity is slightly high, ruling out primary aldosteronism. Consider renovascular hypertension. * Improved hydration and normal potassium on BMP 09/06/2018. Will decrease potassium supplement to 20 mEq daily before lunch, as it may be contributing to nausea in the morning. * Will not consider spironolactone due to nocturia and difficulty obtaining labs for monitoring potassium. Dyspepsia. EKG and labs negative for cardiac ischemia. Anemia is resolved. * Trial of famotidine 20 mg twice daily starting 09/10/2018. Nausea. Tramadol may contribute. Will discontinue and initiate oxycodone at low dose, 2.5-5 mg q.4 hours as needed. Change potassium to single dose before lunch each day. Continue ondansetron as needed. * Much improved. Right shoulder pain with possible injury in the hospital. He had x-ray showing no bony defects, so presumably it is a soft tissue injury. History of a shoulder replacement * Began scheduled acetaminophen at 1000 mg q.8 h. and tramadol 50 mg q.6 hours p.r.n. on 08/30/2018. * Added scheduled tramadol 50 mg three times daily starting 08/31/2017. Changed to oxycodone on 09/06/2018; using 2.5 mg once or twice a day.. * Initiate diclofenac gel, 09/01/2017. * Asked therapy to provide kinesiotaping - although shoulder subluxation not a direct correlate to shoulder pain - could contribute with previous history Dysphagia. Advanced from dysphagia 2, to dysphagia 3 diet, to regular texture and thin liquids as of 09/15/2018. * Continue Speech and Language Pathology. Slight elevation of D-dimer on labs from 09/09/2018. He has no signs or symptoms of DVT or pulmonary embolus. Though he is at risk due to age, obesity and hemiplegia, he is also on apixaban which is sufficient for prophylaxis. Will not pursue further. Skin tears, right upper extremity. Healing well. Continue Allyven dressings. Dyslipidemia. Continue atorvastatin at 80 mg p.o. at bedtime. Secondary prevention of CVA, with likely atrial fibrillation or flutter as an etiology. Continue apixaban 5 mg twice daily. Depressed mood and facilitation of neuro recovery. Changed from citalopram to fluoxetine starting 09/06/2017, due to reduced likelihood of prolonging QT together with ondansetron. History of alcohol abuse and possible dependence. He is far enough out that there is no longer any concern for alcohol withdrawal. Macrocytosis has improved compared to labs when he 1st presented at [facility] on 08/18/2018. B12 levels normal.. He has been treated with thiamine; will discontinue starting 09/18/2018. Prophylaxis. He is on apixaban due to likely atrial fibrillation, and this will suffice for DVT prophylaxis. He has no history of GI bleeding, and he is no longer critically ill. Will not initiate a proton pump inhibitor or H2 wen. DISPOSITION: Lives in a 3 level home with his . Goal to return home and to be able to ambulate shorts distances with contact guard to minimal assist. There is no bedroom or bathroom on the main level. They plan to add stair lifts. Good family support. Very significant debility. Expected length of stay 4-6 weeks, with tentative discharge 09/27/2018 - 10/11/2018. Followup. His reports that his primary care provider is Kimberly Mchugh, whom he can see after discharge. He was seen by Dr. Alatorre of [facility], and we will determine during his stay whether he should follow up with [facility] or with neurologists in [place] 09/18/18 09:34 Subjective: Pt denying any significant pain - points to his right shoulder but gestures that it is minimal. NO new fevers/chills or new neurologic changes. Objective: Vital Signs Temp Pulse Resp BP Pulse Ox 97.7 F 86 16 121/72 H 95 09/17/18 20:00 09/18/18 08:49 09/17/18 20:00 09/18/18 08:50 09/17/18 20:00 Laboratory Results 09/14/18 06:00 09/14/18 09:48 09/17/18 09/18/18 09/19/18 05:59 05:59 05:59 Intake Total 1270 1232 Output Total 500 750 Balance 770 482 PT 15.2 SEC (12.0-15.0) H 09/09/18 15:15 INR 1.18 (0.83-1.16) H 09/09/18 15:15 Physical Exam - Physical Exam General Appearance: alert, other (sitting up in his chair. Appears comfortable) EENT: PERRL/EOMI Respiratory: lungs clear Cardiac/Chest: regular rate, rhythm Abdomen: non-tender, soft Extremities: other (Right shoulder subluxation. ) Neuro/Psych: alert (dysarthric/aphasic, Significant right sided weakness), other (Showing movent of the right UE - in a synergistic flexion pattern. potentially minimal finger flexion on exam although not extension) ICD10 Worksheet Patient Problems: Problems Problem Status Onset Atrial flutter Acute Chest pain Acute atrial flutter Acute
[2018-09-18] MEDS: AQUAPHOR OINTMENT 3.5 OZ JAR TP SCH ×2 (10:08→20:33)
[2018-09-18] MEDS: POTASSIUM CL 10 MEQ TAB PO SCH (11:43)
[2018-09-18] MEDS: ATORVASTATIN CALCIUM 40 MG TAB PO SCH (20:32)
[2018-09-18] MEDS: MELATONIN 3 MG TAB PO SCH (20:33)
[2018-09-19] MEDS: DICLOFENAC SODIUM 1% 100 GM GEL TP SCH ×4 (05:22→17:41)
[2018-09-19] MEDS: ACETAMINOPHEN 500 MG TAB PO SCH ×3 (05:22→20:24)
[2018-09-19] MEDS: LOSARTAN POTASSIUM 50 MG TAB PO SCH (07:48)
[2018-09-19] MEDS: POLYETHYLENE GLYCOL 3350 17 GM PKT PO SCH (07:48)
[2018-09-19] MEDS: FLUoxetine 20 MG CAP PO SCH (07:50)
[2018-09-19] MEDS: FAMOTIDINE 20 MG TAB PO SCH ×2 (07:51→20:22)
[2018-09-19] MEDS: APIXABAN 5 MG TAB PO SCH ×2 (07:51→20:22)
[2018-09-19] MEDS: METOPROLOL SUCCINATE XR 50 MG TAB PO SCH (07:56)
[2018-09-19] MEDS: AQUAPHOR OINTMENT 3.5 OZ JAR TP SCH (07:57)
[2018-09-19] MEDS: SENNOSIDES 1 TAB PO SCH (08:25)
--- NOTE | 2018-09-19 09:46 | SOAPPROG ---
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 * Initial functional independence measure is 25 on 09/01/2017; improved to 37 as of 09/08/2018, and to 49 as of 09/15/2018. Minimal to moderate assist for bed mobility to get his legs back into bed. Contact guard assist to minimal assist for transfers. Ambulated 25 ft with minimal assist and front wheeled walker. Does grooming and hygiene seated with standby assist. Upper body dressing requires minimal assist and lower body dressing requires moderate to maximal assist. He required assist of 2 people to transfer into the shower. Bathing was done with moderate assist. * Continue PT and OT to optimize mobility and activities of daily living. Expressive aphasia, severe, and receptive aphasia, moderate. 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 * Has recovered some automatic language - Still significantly impaired * Continue Speech and Language Pathology. Hypertension. Continue medications with amlodipine 10 mg daily, losartan 100 mg daily, and metoprolol XR 50 mg daily. * Has been stable - monitor and adjust as needed Insomnia. Frequent awakenings to urinate. Postvoid residual was low at 85 so unclear if he would benefit from on alpha wen. * Urinalysis is normal. * Oxybutynin at 2.5 and then titrated to 5 mg at bedtime has not been effective. Condom catheter at night will not stay in place. He is on a toileting schedule but does not move urinate until he is ready. No easy solution to nocturia. Continue efforts of nursing. * Started melatonin 3 mg at HS on 08/31/2018. Started trazodone 50 mg at bedtime on 09/14/2018. * Advised patient to stay up later than 6:00 p.m. before attempting to go to sleep, because if he went to sleep as 6:00 in the evening and slept 8 hr he would then be awake at 2:00 in the morning. Continue current medications. Hypokalemia. Normal magnesium. * Hypertension and hypokalemia with urinary potassium loss raises the possibility of hyperaldosteronism. However plasma aldosterone concentration is below the detectable limit and plasma renin activity is slightly high, ruling out primary aldosteronism. Consider renovascular hypertension. * Improved hydration and normal potassium on BMP 09/06/2018. Will decrease potassium supplement to 20 mEq daily before lunch, as it may be contributing to nausea in the morning. * Will not consider spironolactone due to nocturia and difficulty obtaining labs for monitoring potassium. Dyspepsia. EKG and labs negative for cardiac ischemia. Anemia is resolved. * Trial of famotidine 20 mg twice daily starting 09/10/2018. Nausea. Tramadol may contribute. Will discontinue and initiate oxycodone at low dose, 2.5-5 mg q.4 hours as needed. Change potassium to single dose before lunch each day. Continue ondansetron as needed. * Much improved. Right shoulder pain with possible injury in the hospital. He had x-ray showing no bony defects, so presumably it is a soft tissue injury. History of a shoulder replacement * Began scheduled acetaminophen at 1000 mg q.8 h. and tramadol 50 mg q.6 hours p.r.n. on 08/30/2018. * Added scheduled tramadol 50 mg three times daily starting 08/31/2017. Changed to oxycodone on 09/06/2018; using 2.5 mg once or twice a day.. * Initiate diclofenac gel, 09/01/2017. * Asked therapy to provide kinesiotaping - although shoulder subluxation not a direct correlate to shoulder pain - could contribute with previous history Dysphagia. Advanced from dysphagia 2, to dysphagia 3 diet, to regular texture and thin liquids as of 09/15/2018. * Continue Speech and Language Pathology. Slight elevation of D-dimer on labs from 09/09/2018. He has no signs or symptoms of DVT or pulmonary embolus. Though he is at risk due to age, obesity and hemiplegia, he is also on apixaban which is sufficient for prophylaxis. Will not pursue further. Skin tears, right upper extremity. Healing well. Continue Allyven dressings. Dyslipidemia. Continue atorvastatin at 80 mg p.o. at bedtime. Secondary prevention of CVA, with likely atrial fibrillation or flutter as an etiology. Continue apixaban 5 mg twice daily. Depressed mood and facilitation of neuro recovery. Changed from citalopram to fluoxetine starting 09/06/2017, due to reduced likelihood of prolonging QT together with ondansetron. History of alcohol abuse and possible dependence. He is far enough out that there is no longer any concern for alcohol withdrawal. Macrocytosis has improved compared to labs when he 1st presented at [facility] on 08/18/2018. B12 levels normal.. He has been treated with thiamine; will discontinue starting 09/18/2018. Prophylaxis. He is on apixaban due to likely atrial fibrillation, and this will suffice for DVT prophylaxis. He has no history of GI bleeding, and he is no longer critically ill. Will not initiate a proton pump inhibitor or H2 wen. DISPOSITION: Lives in a 3 level home with his . Goal to return home and to be able to ambulate shorts distances with contact guard to minimal assist. There is no bedroom or bathroom on the main level. They plan to add stair lifts. Good family support. Very significant debility. Expected length of stay 4-6 weeks, with tentative discharge 09/27/2018 - 10/11/2018. Followup. His reports that his primary care provider is Kimberly Mchugh, whom he can see after discharge. He was seen by Dr. Alatorre of [facility], and we will determine during his stay whether he should follow up with [facility] or with neurologists in [place] 09/19/18 09:41 Subjective: Feeling pretty good today. no new concerns today -no new neurologic changes. Appetite is good - having good BM's. no fevers/chills Objective: Vital Signs Temp Pulse Resp BP Pulse Ox 97.7 F 68 16 133/83 H 94 09/19/18 06:16 09/19/18 06:16 09/19/18 06:16 09/19/18 06:16 09/19/18 06:16 Laboratory Results 09/14/18 06:00 09/14/18 09:48 09/18/18 09/19/18 09/20/18 05:59 05:59 05:59 Intake Total 1232 1520 Output Total 750 890 Balance 482 630 PT 15.2 SEC (12.0-15.0) H 09/09/18 15:15 INR 1.18 (0.83-1.16) H 09/09/18 15:15 Physical Exam - Physical Exam General Appearance: alert, no apparent distress, other (Sitting up at the dining table - finishing his breakfast. Eating Independently with full set up) EENT: PERRL/EOMI Respiratory: lungs clear Cardiac/Chest: regular rate, rhythm Abdomen: non-tender, soft Extremities: non-tender Neuro/Psych: alert, normal mood/affect, other (Dysarthria) ICD10 Worksheet Patient Problems: Problems Problem Status Onset Atrial flutter Acute Chest pain Acute atrial flutter Acute
[2018-09-19] MEDS: POTASSIUM CL 10 MEQ TAB PO SCH (11:40)
[2018-09-19] MEDS: MAG HYDROX/AL HYDROX/SIMETH 30 ML UDCUP PO PRN (18:56)
[2018-09-19] MEDS: ATORVASTATIN CALCIUM 40 MG TAB PO SCH (20:18)
[2018-09-19] MEDS: MELATONIN 3 MG TAB PO SCH (20:22)
[2018-09-19] MEDS: traZODone 50 MG TAB PO PRN (20:22)
[2018-09-20] MEDS: AQUAPHOR OINTMENT 3.5 OZ JAR TP SCH ×3 (01:37→20:22)
[2018-09-20] MEDS: SENNOSIDES 1 TAB PO SCH ×3 (01:37→20:22)
[2018-09-20] MEDS: DICLOFENAC SODIUM 1% 100 GM GEL TP SCH ×5 (05:20→20:22)
[2018-09-20] MEDS: ACETAMINOPHEN 500 MG TAB PO SCH ×3 (05:20→20:22)
[2018-09-20] MEDS: FLUoxetine 20 MG CAP PO SCH (08:11)
[2018-09-20] MEDS: APIXABAN 5 MG TAB PO SCH ×2 (08:11→20:22)
[2018-09-20] MEDS: LOSARTAN POTASSIUM 50 MG TAB PO SCH (08:11)
[2018-09-20] MEDS: FAMOTIDINE 20 MG TAB PO SCH ×2 (08:11→20:22)
[2018-09-20] MEDS: METOPROLOL SUCCINATE XR 50 MG TAB PO SCH (08:11)
[2018-09-20] MEDS: POLYETHYLENE GLYCOL 3350 17 GM PKT PO SCH (12:39)
[2018-09-20] MEDS: POTASSIUM CL 10 MEQ TAB PO SCH (13:00)
--- NOTE | 2018-09-20 13:21 | SOAPPROG ---
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 * Initial functional independence measure is 25 on 09/01/2017; improved to 37 as of 09/08/2018, and to 49 as of 09/15/2018. Minimal to moderate assist for bed mobility to get his legs back into bed. Contact guard assist to minimal assist for transfers. Ambulated 25 ft with minimal assist and front wheeled walker. Does grooming and hygiene seated with standby assist. Upper body dressing requires minimal assist and lower body dressing requires moderate to maximal assist. He required assist of 2 people to transfer into the shower. Bathing was done with moderate assist. * Subsequently ambulated with romeo walker x 30' x 2 with min/CGA with W/C follow * Continue PT and OT to optimize mobility and activities of daily living. Expressive aphasia, severe, and receptive aphasia, moderate. 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 * Has recovered social language. * Continue Speech and Language Pathology. Hypertension. Continue medications with amlodipine 10 mg daily, losartan 100 mg daily, and metoprolol XR 50 mg daily. * Adequate control Insomnia. Frequent awakenings to urinate. Postvoid residual was low at 85 so unclear if he would benefit from on alpha wen. * Urinalysis is normal. * Oxybutynin at 2.5 and then titrated to 5 mg at bedtime has not been effective. Condom catheter at night will not stay in place. He is on a toileting schedule but does not move urinate until he is ready. No easy solution to nocturia. Continue efforts of nursing. * Started melatonin 3 mg at HS on 08/31/2018. Started trazodone 50 mg at bedtime on 09/14/2018. * Advised patient to stay up later than 6:00 p.m. before attempting to go to sleep, because if he went to sleep as 6:00 in the evening and slept 8 hr he would then be awake at 2:00 in the morning. Continue current medications. Hypokalemia. Normal magnesium. * Hypertension and hypokalemia with urinary potassium loss raises the possibility of hyperaldosteronism. However plasma aldosterone concentration is below the detectable limit and plasma renin activity is slightly high, ruling out primary aldosteronism. Consider renovascular hypertension. * Improved hydration and normal potassium on BMP 09/06/2018. Will decrease potassium supplement to 20 mEq daily before lunch, as it may be contributing to nausea in the morning. * Normal BMP, 09/20/2018. Hyponatremia also resolved. Dyspepsia. EKG and labs negative for cardiac ischemia. Anemia is resolved. * Trial of famotidine 20 mg twice daily starting 09/10/2018. Nausea. Tramadol may contribute. Will discontinue and initiate oxycodone at low dose, 2.5-5 mg q.4 hours as needed. Change potassium to single dose before lunch each day. Continue ondansetron as needed. * Much improved. Right shoulder pain with possible injury in the hospital. He had x-ray showing no bony defects, so presumably it is a soft tissue injury. History of a shoulder replacement * Began scheduled acetaminophen at 1000 mg q.8 h. and tramadol 50 mg q.6 hours p.r.n. on 08/30/2018. * Added scheduled tramadol 50 mg three times daily starting 08/31/2017. Changed to oxycodone on 09/06/2018; using 2.5 mg once or twice a day.. * Initiate diclofenac gel, 09/01/2017. Dysphagia. Advanced from dysphagia 2, to dysphagia 3 diet, to regular texture and thin liquids as of 09/15/2018. * Continue Speech and Language Pathology. Slight elevation of D-dimer on labs from 09/09/2018. He has no signs or symptoms of DVT or pulmonary embolus. Though he is at risk due to age, obesity and hemiplegia, he is also on apixaban which is sufficient for prophylaxis. Will not pursue further. Skin tears, right upper extremity. Healing well. Continue Allyven dressings. Dyslipidemia. Continue atorvastatin at 80 mg p.o. at bedtime. Secondary prevention of CVA, with likely atrial fibrillation or flutter as an etiology. Continue apixaban 5 mg twice daily. Depressed mood and facilitation of neuro recovery. Changed from citalopram to fluoxetine starting 09/06/2017, due to reduced likelihood of prolonging QT together with ondansetron. History of alcohol abuse and possible dependence. He is far enough out that there is no longer any concern for alcohol withdrawal. Macrocytosis him this improved compared to labs when he 1st presented at [facility] on . B12 levels normal.. He has been treated with thiamine; will discontinue starting 09/18/2018. Prophylaxis. He is on apixaban due to likely atrial fibrillation, and this will suffice for DVT prophylaxis. He has no history of GI bleeding, and he is no longer critically ill. Will not initiate a proton pump inhibitor or H2 wen. DISPOSITION: Lives in a 3 level home with his . Goal to return home and to be able to ambulate shorts distances with contact guard to minimal assist. There is no bedroom or bathroom on the main level. They plan to add stair lifts. Good family support. Very significant debility. Expected length of stay 4-6 weeks, with tentative discharge 09/27/2018 - 10/11/2018. Followup. His reports that his primary care provider is Kimberly Mchugh, whom he can see after discharge. He was seen by Dr. Alatorre of [facility], and we will determine during his stay whether he should follow up with [facility] or with neurologists in [place]. 09/20/18 13:18 Subjective: No complaints. Sleeping well. Not in pain. No cough or dyspnea. Feels encouraged by improving motor function. Objective: Vital Signs Temp Pulse Resp BP Pulse Ox 36.8 C 73 18 128/85 H 94 09/20/18 05:39 09/20/18 05:39 09/20/18 05:39 09/20/18 05:39 09/20/18 05:39 Laboratory Results 09/14/18 06:00 09/20/18 12:40 09/19/18 09/20/18 09/21/18 05:59 05:59 05:59 Intake Total 1520 200 Output Total 890 500 400 Balance 630 -300 -400 PT 15.2 SEC (12.0-15.0) H 09/09/18 15:15 INR 1.18 (0.83-1.16) H 09/09/18 15:15 Physical Exam - Physical Exam General Appearance: WD/WN, alert, no apparent distress Respiratory: normal breath sounds, No crackles, No rhonchi, No wheezing Cardiac/Chest: regular rate, rhythm, edema (Trace bilateral pretibial), No diastolic murmur, No systolic murmur Skin: normal color, warm/dry, other (Bandages over right upper extremity skin tears) Neuro/Psych: alert, normal mood/affect, aphasia (Expressive), motor weakness ( Right upper extremity can move at shoulder; less so it by sepsis; flaccid at wrist and hand. Observed in hallway with physical therapy, able to ascend a 4 [address] step with considerable assistance.) ICD10 Worksheet Patient Problems: Problems Problem Status Onset Atrial flutter Acute Chest pain Acute atrial flutter Acute
[2018-09-20] MEDS: traZODone 50 MG TAB PO PRN (20:22)
[2018-09-20] MEDS: ATORVASTATIN CALCIUM 40 MG TAB PO SCH (20:22)
[2018-09-20] MEDS: MELATONIN 3 MG TAB PO SCH (20:22)
[2018-09-21] MEDS: ACETAMINOPHEN 500 MG TAB PO SCH ×3 (06:31→20:53)
[2018-09-21] MEDS: DICLOFENAC SODIUM 1% 100 GM GEL TP SCH ×4 (06:32→20:54)
[2018-09-21] MEDS: SENNOSIDES 1 TAB PO SCH ×2 (08:12→21:06)
[2018-09-21] MEDS: METOPROLOL SUCCINATE XR 50 MG TAB PO SCH (08:12)
[2018-09-21] MEDS: FAMOTIDINE 20 MG TAB PO SCH ×2 (08:12→20:52)
[2018-09-21] MEDS: LOSARTAN POTASSIUM 50 MG TAB PO SCH (08:12)
[2018-09-21] MEDS: APIXABAN 5 MG TAB PO SCH ×2 (08:13→20:52)
[2018-09-21] MEDS: POLYETHYLENE GLYCOL 3350 17 GM PKT PO SCH (08:13)
[2018-09-21] MEDS: FLUoxetine 20 MG CAP PO SCH (08:13)
[2018-09-21] MEDS: AQUAPHOR OINTMENT 3.5 OZ JAR TP SCH ×2 (10:08→20:54)
--- NOTE | 2018-09-21 15:28 | SOAPPROG ---
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 * Initial functional independence measure is 25 on 09/01/2017; improved to 37 as of 09/08/2018, and to 49 as of 09/15/2018. Minimal to moderate assist for bed mobility to get his legs back into bed. Contact guard assist to minimal assist for transfers. Ambulated 25 ft with minimal assist and front wheeled walker. Does grooming and hygiene seated with standby assist. Upper body dressing requires minimal assist and lower body dressing requires moderate to maximal assist. He required assist of 2 people to transfer into the shower. Bathing was done with moderate assist. * Subsequently ambulated with romeo walker x 30' x 2 with min/CGA with W/C follow * Continue PT and OT to optimize mobility and activities of daily living. Expressive aphasia, severe, and receptive aphasia, moderate. 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 * Has recovered social language. * Continue Speech and Language Pathology. Hypertension. Continue medications with amlodipine 10 mg daily, losartan 100 mg daily, and metoprolol XR 50 mg daily. * Adequate control Insomnia. Frequent awakenings to urinate. Postvoid residual was low at 85 so unclear if he would benefit from on alpha wen. * Urinalysis is normal. * Oxybutynin at 2.5 and then titrated to 5 mg at bedtime has not been effective. Condom catheter at night will not stay in place. He is on a toileting schedule but does not move urinate until he is ready. No easy solution to nocturia. Continue efforts of nursing. * Started melatonin 3 mg at HS on 08/31/2018. Started trazodone 50 mg at bedtime on 09/14/2018. * Advised patient to stay up later than 6:00 p.m. before attempting to go to sleep, because if he went to sleep as 6:00 in the evening and slept 8 hr he would then be awake at 2:00 in the morning. Continue current medications. Hypokalemia. Normal magnesium. * Hypertension and hypokalemia with urinary potassium loss raises the possibility of hyperaldosteronism. However plasma aldosterone concentration is below the detectable limit and plasma renin activity is slightly high, ruling out primary aldosteronism. Consider renovascular hypertension. * Improved hydration and normal potassium on BMP 09/06/2018. Will decrease potassium supplement to 20 mEq daily before lunch, as it may be contributing to nausea in the morning. * Normal BMP, 09/20/2018. Hyponatremia also resolved. Dyspepsia. EKG and labs negative for cardiac ischemia. Anemia is resolved. * Trial of famotidine 20 mg twice daily starting 09/10/2018. Nausea. Tramadol may contribute. Will discontinue and initiate oxycodone at low dose, 2.5-5 mg q.4 hours as needed. Change potassium to single dose before lunch each day. Continue ondansetron as needed. * Much improved. Right shoulder pain with possible injury in the hospital. He had x-ray showing no bony defects, so presumably it is a soft tissue injury. History of a shoulder replacement * Began scheduled acetaminophen at 1000 mg q.8 h. and tramadol 50 mg q.6 hours p.r.n. on 08/30/2018. * Added scheduled tramadol 50 mg three times daily starting 08/31/2017. Changed to oxycodone on 09/06/2018; using 2.5 mg once or twice a day.. * Initiate diclofenac gel, 09/01/2017. Dysphagia. Advanced from dysphagia 2, to dysphagia 3 diet, to regular texture and thin liquids as of 09/15/2018. * Continue Speech and Language Pathology. Slight elevation of D-dimer on labs from 09/09/2018. He has no signs or symptoms of DVT or pulmonary embolus. Though he is at risk due to age, obesity and hemiplegia, he is also on apixaban which is sufficient for prophylaxis. Will not pursue further. Skin tears, right upper extremity. Healing well. Continue Allyven dressings. Dyslipidemia. Continue atorvastatin at 80 mg p.o. at bedtime. Secondary prevention of CVA, with likely atrial fibrillation or flutter as an etiology. Continue apixaban 5 mg twice daily. Depressed mood and facilitation of neuro recovery. Changed from citalopram to fluoxetine starting 09/06/2017, due to reduced likelihood of prolonging QT together with ondansetron. History of alcohol abuse and possible dependence. He is far enough out that there is no longer any concern for alcohol withdrawal. Macrocytosis him this improved compared to labs when he 1st presented at [facility] on . B12 levels normal.. He has been treated with thiamine; will discontinue starting 09/18/2018. Prophylaxis. He is on apixaban due to likely atrial fibrillation, and this will suffice for DVT prophylaxis. He has no history of GI bleeding, and he is no longer critically ill. Will not initiate a proton pump inhibitor or H2 wen. DISPOSITION: Lives in a 3 level home with his . Goal to return home and to be able to ambulate shorts distances with contact guard to minimal assist. There is no bedroom or bathroom on the main level. They plan to add stair lifts. Good family support. Very significant debility. Expected length of stay 4-6 weeks, with tentative discharge 09/27/2018 - 10/11/2018. Followup. His reports that his primary care provider is Kimberly Mchugh, whom he can see after discharge. He was seen by Dr. Alatorre of [facility], and we will determine during his stay whether he should follow up with [facility] or with neurologists in [place]. 09/21/18 15:27 Subjective: No complaints. Speech therapist reports making gains regarding communication. Sleeping well, not in pain, no cough or dyspnea. Objective: Vital Signs Temp Pulse Resp BP Pulse Ox 36.5 C 73 17 138/85 H 93 09/21/18 06:22 09/21/18 06:22 09/21/18 06:22 09/21/18 06:22 09/21/18 06:22 Laboratory Results 09/14/18 06:00 09/20/18 12:40 09/20/18 09/21/18 09/22/18 05:59 05:59 05:59 Intake Total 200 2020 50 Output Total 500 975 150 Balance -300 1045 -100 PT 15.2 SEC (12.0-15.0) H 09/09/18 15:15 INR 1.18 (0.83-1.16) H 09/09/18 15:15 Physical Exam - Physical Exam General Appearance: WD/WN, alert, no apparent distress Respiratory: No respiratory distress, No accessory muscle use Skin: normal color, warm/dry, other (Dressings clean over skin tears on right arm.) Neuro/Psych: alert, normal mood/affect, aphasia (Expressive), motor weakness ( Right upper and lower extremities) ICD10 Worksheet Patient Problems: Problems Problem Status Onset Atrial flutter Acute Chest pain Acute atrial flutter Acute
[2018-09-21] MEDS: POTASSIUM CL 10 MEQ TAB PO SCH (16:27)
[2018-09-21] MEDS: MAG HYDROX/AL HYDROX/SIMETH 30 ML UDCUP PO PRN (18:30)
[2018-09-21] MEDS: ATORVASTATIN CALCIUM 40 MG TAB PO SCH (20:52)
[2018-09-21] MEDS: MELATONIN 3 MG TAB PO SCH (20:52)
[2018-09-21] MEDS: traZODone 50 MG TAB PO PRN (22:50)
[2018-09-22] MEDS: DICLOFENAC SODIUM 1% 100 GM GEL TP SCH ×4 (05:44→21:03)
[2018-09-22] MEDS: ACETAMINOPHEN 500 MG TAB PO SCH ×3 (05:44→21:01)
[2018-09-22] MEDS: FAMOTIDINE 20 MG TAB PO SCH ×2 (07:41→21:00)
[2018-09-22] MEDS: SENNOSIDES 1 TAB PO SCH ×2 (08:52→09:02)
[2018-09-22] MEDS: POLYETHYLENE GLYCOL 3350 17 GM PKT PO SCH (08:53)
[2018-09-22] MEDS: APIXABAN 5 MG TAB PO SCH ×2 (08:55→21:00)
[2018-09-22] MEDS: LOSARTAN POTASSIUM 50 MG TAB PO SCH (08:55)
[2018-09-22] MEDS: FLUoxetine 20 MG CAP PO SCH (08:55)
[2018-09-22] MEDS: METOPROLOL SUCCINATE XR 50 MG TAB PO SCH (08:55)
[2018-09-22] MEDS: AQUAPHOR OINTMENT 3.5 OZ JAR TP SCH ×2 (09:00→21:04)
[2018-09-22] MEDS: POTASSIUM CL 10 MEQ TAB PO SCH (11:48)
--- NOTE | 2018-09-22 12:10 | SOAPPROG ---
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 * Initial functional independence measure is 25 on 09/01/2017; improved to 37 as of 09/08/2018, to 49 as of 09/15/2018, and to 57 as of 09/22/2018. Bed mobility requires standby assist for out of bed and minimal assist for into bed. Transfers are done with minimal assist and a quad cane. He has ambulated 55 ft with a romeo walker and is transitioning to a quad cane. Grooming and hygiene are done seated with supervision. Upper body dressing requires minimal assist and lower body dressing requires moderate to maximal assist. Toilet transfer requires minimal to moderate assist and toileting requires moderate assist. * Continue PT and OT to optimize mobility and activities of daily living. Expressive aphasia, severe, and receptive aphasia, moderate. 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 * Has recovered social language. Overall improving but continues to have significant expressive and receptive aphasia. * Continue Speech and Language Pathology. Hypertension. Continue medications with amlodipine 10 mg daily, losartan 100 mg daily, and metoprolol XR 50 mg daily. * Blood pressure is low target and he is developing it edema bilateral ankles. Will reduce amlodipine to 5 mg q.day starting 09/23/2018. Insomnia. Frequent awakenings to urinate. Postvoid residual was low at 85 so unclear if he would benefit from on alpha wen. * Urinalysis is normal. * Oxybutynin at 2.5 and then titrated to 5 mg at bedtime has not been effective. Condom catheter at night will not stay in place. He is on a toileting schedule but does not move urinate until he is ready. No easy solution to nocturia. Continue efforts of nursing. * Started melatonin 3 mg at HS on 08/31/2018. Started trazodone 50 mg at bedtime on 09/14/2018. * Advised patient to stay up later than 6:00 p.m. before attempting to go to sleep, because if he went to sleep as 6:00 in the evening and slept 8 hr he would then be awake at 2:00 in the morning. Continue current medications. Hypokalemia. Normal magnesium. * Hypertension and hypokalemia with urinary potassium loss raises the possibility of hyperaldosteronism. However plasma aldosterone concentration is below the detectable limit and plasma renin activity is slightly high, ruling out primary aldosteronism. Consider renovascular hypertension. * Improved hydration and normal potassium on BMP 09/06/2018. Decreased potassium supplement to 20 mEq daily before lunch, as it may be contributing to nausea in the morning. * Normal BMP, 09/20/2018. Hyponatremia also resolved. Dyspepsia. EKG and labs negative for cardiac ischemia. Anemia is resolved. * Trial of famotidine 20 mg twice daily starting 09/10/2018. Nausea. Tramadol may contribute. Will discontinue and initiate oxycodone at low dose, 2.5-5 mg q.4 hours as needed. Change potassium to single dose before lunch each day. Continue ondansetron as needed. * Much improved. Right shoulder pain with possible injury in the hospital. He had x-ray showing no bony defects, so presumably it is a soft tissue injury. History of a shoulder replacement * Began scheduled acetaminophen at 1000 mg q.8 h. and tramadol 50 mg q.6 hours p.r.n. on 08/30/2018. * Added scheduled tramadol 50 mg three times daily starting 08/31/2017. Changed to oxycodone on 09/06/2018; not used since 09/16/2018. * Initiated diclofenac gel, 09/01/2017. Dysphagia. Advanced from dysphagia 2, to dysphagia 3 diet, to regular texture and thin liquids as of 09/15/2018. * Continue Speech and Language Pathology. Slight elevation of D-dimer on labs from 09/09/2018. He has no signs or symptoms of DVT or pulmonary embolus. Though he is at risk due to age, obesity and hemiplegia, he is also on apixaban which is sufficient for prophylaxis. Will not pursue further. Skin tears, right upper extremity. Healing well. Continue Allyven dressings. Dyslipidemia. Continue atorvastatin at 80 mg p.o. at bedtime. Secondary prevention of CVA, with likely atrial fibrillation or flutter as an etiology. Continue apixaban 5 mg twice daily. Depressed mood and facilitation of neuro recovery. Changed from citalopram to fluoxetine starting 09/06/2017, due to reduced likelihood of prolonging QT together with ondansetron. History of alcohol abuse and possible dependence. He is far enough out that there is no longer any concern for alcohol withdrawal. Macrocytosis him this improved compared to labs when he 1st presented at [facility] on . B12 levels normal.. He has been treated with thiamine; will discontinue starting 09/18/2018. Prophylaxis. He is on apixaban due to likely atrial fibrillation, and this will suffice for DVT prophylaxis. He has no history of GI bleeding, and he is no longer critically ill. Will not initiate a proton pump inhibitor or H2 wen. DISPOSITION: Attended staffing, 15 min. Discussed with case management, nursing, dietitian, PT, OT, TRAFFIC REPRESENTATIVE. Attended family conference, multiple family members present. Lives in a 3 level home with his . Goal to return home and to be able to ambulate shorts distances with contact guard to minimal assist. There is no bedroom or bathroom on the main level. Installation of steroid lift is plan for 09/23/2018. Good family support and will hire help if needed. Tentative discharge 10/01/2018 - 10/08/2018. Home visit after stair lifts installed will help determine discharge date. Followup. His reports that his primary care provider is Kimberly Mchugh, whom he can see after discharge. He was seen by Dr. Alatorre of [facility], and we will determine during his stay whether he should follow up with [facility] or with neurologists in [place]. 09/22/18 12:00 Subjective: Staff and family have noticed swelling at the ankles. Patient is without complaints. He still has interrupted sleep but feels that he gets adequate rest. No cough or dyspnea, no fevers or chills. Shoulder pain is adequately controlled. Objective: Vital Signs Temp Pulse Resp BP Pulse Ox 36.4 C 66 18 117/78 92 09/22/18 07:40 09/22/18 07:40 09/22/18 07:40 09/22/18 07:40 09/22/18 07:40 Laboratory Results 09/14/18 06:00 09/20/18 12:40 09/21/18 09/22/18 09/23/18 05:59 05:59 05:59 Intake Total 2019 1010 507 Output Total 975 900 Balance 1045 110 507 PT 15.2 SEC (12.0-15.0) H 09/09/18 15:15 INR 1.18 (0.83-1.16) H 09/09/18 15:15 - Time Spent With Patient Time Spent With Patient: Greater than 35 min floor time today, including more than 50% of time in coordination of care during staffing meeting, and counseling patient and family during family meeting. Physical Exam - Physical Exam General Appearance: WD/WN, alert, no apparent distress, obese Respiratory: normal breath sounds, No crackles, No rhonchi, No wheezing Cardiac/Chest: regular rate, rhythm, edema (1 to 2+ bilateral ankles), No JVD, No diastolic murmur, No systolic murmur Skin: normal color, warm/dry, other (Skin tears right upper extremity with dressings in place.) Neuro/Psych: alert, normal mood/affect, abnormal gait (Observed transfer with multiple short steps using a left quad cane, wide base of support), motor weakness (Right upper and lower extremities) ICD10 Worksheet Patient Problems: Problems Problem Status Onset Atrial flutter Acute Chest pain Acute atrial flutter Acute
[2018-09-22] MEDS ORDERED: SENNOSIDES 1 TAB PO PRN (12:33)
[2018-09-22] MEDS: MAG HYDROX/AL HYDROX/SIMETH 30 ML UDCUP PO PRN (15:16)
[2018-09-22] MEDS: MELATONIN 3 MG TAB PO SCH (21:00)
[2018-09-22] MEDS: ATORVASTATIN CALCIUM 40 MG TAB PO SCH (21:00)
[2018-09-22] MEDS: traZODone 50 MG TAB PO PRN (21:50)
[2018-09-23] MEDS: DICLOFENAC SODIUM 1% 100 GM GEL TP SCH ×4 (04:59→20:04)
[2018-09-23] MEDS: ACETAMINOPHEN 500 MG TAB PO SCH ×3 (04:59→23:59)
[2018-09-23] MEDS: AQUAPHOR OINTMENT 3.5 OZ JAR TP SCH (08:01)
[2018-09-23] MEDS: FAMOTIDINE 20 MG TAB PO SCH ×2 (08:01→20:03)
[2018-09-23] MEDS: FLUoxetine 20 MG CAP PO SCH (08:02)
[2018-09-23] MEDS: METOPROLOL SUCCINATE XR 50 MG TAB PO SCH (08:03)
[2018-09-23] MEDS: APIXABAN 5 MG TAB PO SCH ×2 (08:03→20:03)
[2018-09-23] MEDS: amLODIPine BESYLATE 5 MG TAB PO SCH (08:03)
[2018-09-23] MEDS: LOSARTAN POTASSIUM 50 MG TAB PO SCH (08:03)
[2018-09-23] MEDS: POTASSIUM CL 10 MEQ TAB PO SCH (11:38)
--- NOTE | 2018-09-23 12:45 | SOAPPROG ---
SOAP Progress Note Assessment/Plan: 78-year-old male with severe left-sided MCA stroke on 08/18/2018 with right- sided hemiparesis and severe aphasia Today's update: Slowly progressing in therapies. Blood pressure stable on decreased dose of amlodipine. Continue rehabilitation plan with PT, OT, and speech for impairments in mobility, self-care, cognition, communication, dysphagia. A total of 15 min was spent on the floor in the care of the patient, the majority of which was spent in counseling coordination of care regarding rehabilitation progress Additional issues reviewed without change today include insomnia, hypokalemia, dyspepsia, nausea, shoulder pain, depressed mood, alcohol abuse. 09/09/18 08:56 09/14/18 13:24 09/23/18 12:47 Subjective: Chief complaint: Dysphagia No acute events overnight. Patient denies any new shortness of breath or chest pain, no new numbness, tingling, or weakness. Patient was participating in speech therapy for dysphagia, making progress, no concerns from speech therapy today. Objective: Vital Signs Temp Pulse Resp BP Pulse Ox 36.5 C 69 16 117/73 96 09/23/18 06:13 09/23/18 06:13 09/23/18 06:13 09/23/18 06:13 09/23/18 06:13 Laboratory Results 09/14/18 06:00 09/20/18 12:40 09/22/18 09/23/18 09/24/18 05:59 05:59 05:59 Intake Total 1010 1257 300 Output Total 900 615 110 Balance 110 642 190 PT 15.2 SEC (12.0-15.0) H 09/09/18 15:15 INR 1.18 (0.83-1.16) H 09/09/18 15:15 Physical Exam - Physical Exam General Appearance: WD/WN, alert, no apparent distress EENT: No scleral icterus (R), No scleral icterus (L) Respiratory: No respiratory distress, No accessory muscle use Cardiac/Chest: normal peripheral pulses, regular rate, rhythm, No edema Skin: normal color, warm/dry, No cyanosis Extremities: No pedal edema, No swelling Neuro/Psych: alert, normal mood/affect, motor weakness, cognition abnormalities , speech abnormalities ICD10 Worksheet Patient Problems: Problems Problem Status Onset Atrial flutter Acute Chest pain Acute atrial flutter Acute
[2018-09-23] MEDS: MAG HYDROX/AL HYDROX/SIMETH 30 ML UDCUP PO PRN ×2 (15:05→20:03)
[2018-09-23] MEDS: traZODone 50 MG TAB PO PRN (20:03)
[2018-09-23] MEDS: MELATONIN 3 MG TAB PO SCH (20:03)
[2018-09-23] MEDS: ATORVASTATIN CALCIUM 40 MG TAB PO SCH (20:03)
[2018-09-24] MEDS: ACETAMINOPHEN 500 MG TAB PO SCH ×3 (06:21→19:49)
[2018-09-24] MEDS: DICLOFENAC SODIUM 1% 100 GM GEL TP SCH ×4 (06:22→19:50)
[2018-09-24] MEDS: amLODIPine BESYLATE 5 MG TAB PO SCH (08:31)
[2018-09-24] MEDS: APIXABAN 5 MG TAB PO SCH ×2 (08:33→19:49)
[2018-09-24] MEDS: LOSARTAN POTASSIUM 50 MG TAB PO SCH (08:33)
[2018-09-24] MEDS: FAMOTIDINE 20 MG TAB PO SCH ×2 (08:33→19:49)
[2018-09-24] MEDS: FLUoxetine 20 MG CAP PO SCH (08:33)
[2018-09-24] MEDS: METOPROLOL SUCCINATE XR 50 MG TAB PO SCH (08:34)
[2018-09-24] MEDS: AQUAPHOR OINTMENT 3.5 OZ JAR TP SCH ×3 (08:34→19:50)
--- NOTE | 2018-09-24 11:21 | SOAPPROG ---
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 * Initial functional independence measure is 25 on 09/01/2017; improved to 37 as of 09/08/2018, to 49 as of 09/15/2018, and to 57 as of 09/22/2018. Bed mobility requires standby assist for out of bed and minimal assist for into bed. Transfers are done with minimal assist and a quad cane. He has ambulated 55 ft with a romeo walker and is transitioning to a quad cane. Grooming and hygiene are done seated with supervision. Upper body dressing requires minimal assist and lower body dressing requires moderate to maximal assist. Toilet transfer requires minimal to moderate assist and toileting requires moderate assist. * Continue PT and OT to optimize mobility and activities of daily living. Expressive aphasia, severe, and receptive aphasia, moderate. 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 * Has recovered social language. Overall improving but continues to have significant expressive and receptive aphasia. * Continue Speech and Language Pathology. Hypertension. * Blood pressure is below target and he is developing it edema bilateral ankles. Will reduce amlodipine to 5 mg q.day starting 09/23/2018. * Worsening edema and weight is up, 09/24/2018. Will discontinue amlodipine and initiate hydrochlorothiazide at 12.5 mg QD starting 09/25/2018. * Continue losartan 100 mg daily and metoprolol XR 50 mg daily. * Recheck BMP after 5 days, on 09/30/2017. Edema. Amlodipine may be contributing. Also has history of diastolic dysfunction and mild pulmonary hypertension seen on echocardiogram in 2015. * Initiate diuretic and discontinue amlodipine. Continue daily weights. Insomnia. Frequent awakenings to urinate. Postvoid residual was low at 85 so unclear if he would benefit from on alpha wen. * Urinalysis is normal. * Oxybutynin at 2.5 and then titrated to 5 mg at bedtime has not been effective. Condom catheter at night will not stay in place. He is on a toileting schedule but does not move urinate until he is ready. No easy solution to nocturia. Continue efforts of nursing. * Started melatonin 3 mg at HS on 08/31/2018. Started trazodone 50 mg at bedtime on 09/14/2018. * Advised patient to stay up later than 6:00 p.m. before attempting to go to sleep, because if he went to sleep as 6:00 in the evening and slept 8 hr he would then be awake at 2:00 in the morning. Continue current medications. Hypokalemia. Normal magnesium. * Hypertension and hypokalemia with urinary potassium loss raises the possibility of hyperaldosteronism. However plasma aldosterone concentration is below the detectable limit and plasma renin activity is slightly high, ruling out primary aldosteronism. Consider renovascular hypertension. * Improved hydration and normal potassium on BMP 09/06/2018. Decreased potassium supplement to 20 mEq daily before lunch, as it may be contributing to nausea in the morning. * Normal BMP, 09/20/2018. Hyponatremia also resolved. Dyspepsia. EKG and labs negative for cardiac ischemia. Anemia is resolved. * Trial of famotidine 20 mg twice daily starting 09/10/2018. Nausea. Tramadol may contribute. Will discontinue and initiate oxycodone at low dose, 2.5-5 mg q.4 hours as needed. Change potassium to single dose before lunch each day. Continue ondansetron as needed. * Much improved. Right shoulder pain with possible injury in the hospital. He had x-ray showing no bony defects, so presumably it is a soft tissue injury. History of a shoulder replacement * Began scheduled acetaminophen at 1000 mg q.8 h. and tramadol 50 mg q.6 hours p.r.n. on 08/30/2018. * Added scheduled tramadol 50 mg three times daily starting 08/31/2017. Changed to oxycodone on 09/06/2018; not used since 09/16/2018. * Initiated diclofenac gel, 09/01/2017. Dysphagia. Advanced from dysphagia 2, to dysphagia 3 diet, to regular texture and thin liquids as of 09/15/2018. * Continue Speech and Language Pathology. Slight elevation of D-dimer on labs from 09/09/2018. He has no signs or symptoms of DVT or pulmonary embolus. Though he is at risk due to age, obesity and hemiplegia, he is also on apixaban which is sufficient for prophylaxis. Will not pursue further. Skin tears, right upper extremity. Healing well. Continue Allevyn dressings. Dyslipidemia. Continue atorvastatin at 80 mg p.o. at bedtime. Secondary prevention of CVA, with likely atrial fibrillation or flutter as an etiology. Continue apixaban 5 mg twice daily. Depressed mood and facilitation of neuro recovery. Changed from citalopram to fluoxetine starting 09/06/2017, due to reduced likelihood of prolonging QT together with ondansetron. History of alcohol abuse and possible dependence. He is far enough out that there is no longer any concern for alcohol withdrawal. Macrocytosis him this improved compared to labs when he 1st presented at [facility] on . B12 levels normal.. He has been treated with thiamine; will discontinue starting 09/18/2018. Prophylaxis. He is on apixaban due to likely atrial fibrillation, and this will suffice for DVT prophylaxis. He has no history of GI bleeding, and he is no longer critically ill. Will not initiate a proton pump inhibitor or H2 wen. DISPOSITION: Lives in a 3 level home with his . Goal to return home and to be able to ambulate shorts distances with contact guard to minimal assist. There is no bedroom or bathroom on the main level. Installation of stair lift is plan for 09/23/2018. Good family support and will hire help if needed. Tentative discharge 10/01/2018 - 10/08/2018. Home visit after stair lift installed will help determine discharge date. Followup. His reports that his primary care provider is Kimberly Mchugh, whom he can see after discharge. He was seen by Dr. Alatorre of [facility], and we will determine during his stay whether he should follow up with [facility] or with neurologists in [place]. 09/24/18 11:27 Subjective: Has more swelling in his ankles today. No cough or dyspnea. No fevers or chills. Otherwise without complaints. Objective: Vital Signs Temp Pulse Resp BP Pulse Ox 36.5 C 67 16 122/75 H 94 09/24/18 06:31 09/24/18 06:31 09/24/18 06:31 09/24/18 06:31 09/24/18 06:31 Laboratory Results 09/14/18 06:00 09/20/18 12:40 09/23/18 09/24/18 09/25/18 05:59 05:59 05:59 Intake Total 1257 1583 Output Total 615 710 Balance 642 873 PT 15.2 SEC (12.0-15.0) H 09/09/18 15:15 INR 1.18 (0.83-1.16) H 09/09/18 15:15 Physical Exam - Physical Exam General Appearance: WD/WN, alert, no apparent distress, obese Respiratory: normal breath sounds, crackles (Bipolar), No rhonchi, No wheezing Cardiac/Chest: regular rate, rhythm, edema (2+ bilateral ankles and pretibial), No diastolic murmur, No systolic murmur Skin: normal color, warm/dry Neuro/Psych: alert, normal mood/affect, aphasia ICD10 Worksheet Patient Problems: Problems Problem Status Onset Atrial flutter Acute Chest pain Acute atrial flutter Acute
[2018-09-24] MEDS: POTASSIUM CL 10 MEQ TAB PO SCH (12:17)
[2018-09-24] MEDS: MAG HYDROX/AL HYDROX/SIMETH 30 ML UDCUP PO PRN (12:21)
[2018-09-24] MEDS: POLYETHYLENE GLYCOL 3350 17 GM PKT PO PRN (16:29)
[2018-09-24] MEDS: traZODone 50 MG TAB PO PRN (19:49)
[2018-09-24] MEDS: MELATONIN 3 MG TAB PO SCH (19:49)
[2018-09-24] MEDS: ATORVASTATIN CALCIUM 40 MG TAB PO SCH (19:49)
[2018-09-25] MEDS: ACETAMINOPHEN 500 MG TAB PO SCH ×3 (06:15→20:06)
[2018-09-25] MEDS: DICLOFENAC SODIUM 1% 100 GM GEL TP SCH ×4 (06:16→20:11)
[2018-09-25] MEDS: HYDROCHLOROTHIAZIDE 25 MG TAB PO SCH (09:56)
[2018-09-25] MEDS: APIXABAN 5 MG TAB PO SCH ×2 (09:57→20:06)
[2018-09-25] MEDS: METOPROLOL SUCCINATE XR 50 MG TAB PO SCH (09:57)
[2018-09-25] MEDS: LOSARTAN POTASSIUM 50 MG TAB PO SCH (09:58)
[2018-09-25] MEDS: FAMOTIDINE 20 MG TAB PO SCH ×2 (09:59→20:06)
[2018-09-25] MEDS: MAG HYDROX/AL HYDROX/SIMETH 30 ML UDCUP PO PRN ×2 (09:59→15:36)
[2018-09-25] MEDS: FLUoxetine 20 MG CAP PO SCH (10:00)
--- NOTE | 2018-09-25 11:54 | HOSPPROG ---
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 * Initial functional independence measure is 25 on 09/01/2017; improved to 37 as of 09/08/2018, to 49 as of 09/15/2018, and to 57 as of 09/22/2018. Bed mobility requires standby assist for out of bed and minimal assist for into bed. Transfers are done with minimal assist and a quad cane. He has ambulated 55 ft with a romeo walker and is transitioning to a quad cane. Grooming and hygiene are done seated with supervision. Upper body dressing requires minimal assist and lower body dressing requires moderate to maximal assist. Toilet transfer requires minimal to moderate assist and toileting requires moderate assist. * Continue PT and OT to optimize mobility and activities of daily living. Expressive aphasia, severe, and receptive aphasia, moderate. 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 * Has recovered social language. Overall improving but continues to have significant expressive and receptive aphasia. * Continue Speech and Language Pathology. Hypertension. * Blood pressure is below target and he is developing it edema bilateral ankles. Will reduce amlodipine to 5 mg q.day starting 09/23/2018. * Worsening edema and weight is up, 09/24/2018. Will discontinue amlodipine and initiate hydrochlorothiazide at 12.5 mg QD starting 09/25/2018. * Continue losartan 100 mg daily and metoprolol XR 50 mg daily. * Recheck BMP after 5 days, on 09/30/2017. Edema. Amlodipine may be contributing. Also has history of diastolic dysfunction and mild pulmonary hypertension seen on echocardiogram in 2015. * Initiate diuretic and discontinue amlodipine. Continue daily weights. * WEIGHT UP. WILL GIVE A COUPLE DOSES OF LASIX Insomnia. Frequent awakenings to urinate. Postvoid residual was low at 85 so unclear if he would benefit from on alpha wen. * Urinalysis is normal. * Oxybutynin at 2.5 and then titrated to 5 mg at bedtime has not been effective. Condom catheter at night will not stay in place. He is on a toileting schedule but does not move urinate until he is ready. No easy solution to nocturia. Continue efforts of nursing. * Started melatonin 3 mg at HS on 08/31/2018. Started trazodone 50 mg at bedtime on 09/14/2018. * Advised patient to stay up later than 6:00 p.m. before attempting to go to sleep, because if he went to sleep as 6:00 in the evening and slept 8 hr he would then be awake at 2:00 in the morning. Continue current medications. Hypokalemia. Normal magnesium. * Hypertension and hypokalemia with urinary potassium loss raises the possibility of hyperaldosteronism. However plasma aldosterone concentration is below the detectable limit and plasma renin activity is slightly high, ruling out primary aldosteronism. Consider renovascular hypertension. * Improved hydration and normal potassium on BMP 09/06/2018. Decreased potassium supplement to 20 mEq daily before lunch, as it may be contributing to nausea in the morning. * Normal BMP, 09/20/2018. Hyponatremia also resolved. * RECHECK ON THURSDAY Dyspepsia. EKG and labs negative for cardiac ischemia. Anemia is resolved. * Trial of famotidine 20 mg twice daily starting 09/10/2018. Nausea. Tramadol may contribute. Will discontinue and initiate oxycodone at low dose, 2.5-5 mg q.4 hours as needed. Change potassium to single dose before lunch each day. Continue ondansetron as needed. * Much improved. Right shoulder pain with possible injury in the hospital. He had x-ray showing no bony defects, so presumably it is a soft tissue injury. History of a shoulder replacement * Began scheduled acetaminophen at 1000 mg q.8 h. and tramadol 50 mg q.6 hours p.r.n. on 08/30/2018. * Added scheduled tramadol 50 mg three times daily starting 08/31/2017. Changed to oxycodone on 09/06/2018; not used since 09/16/2018. * Initiated diclofenac gel, 09/01/2017. Dysphagia. Advanced from dysphagia 2, to dysphagia 3 diet, to regular texture and thin liquids as of 09/15/2018. * Continue Speech and Language Pathology. Slight elevation of D-dimer on labs from 09/09/2018. He has no signs or symptoms of DVT or pulmonary embolus. Though he is at risk due to age, obesity and hemiplegia, he is also on apixaban which is sufficient for prophylaxis. Will not pursue further. Skin tears, right upper extremity. Healing well. Continue Allevyn dressings. Dyslipidemia. Continue atorvastatin at 80 mg p.o. at bedtime. Secondary prevention of CVA, with likely atrial fibrillation or flutter as an etiology. Continue apixaban 5 mg twice daily. Depressed mood and facilitation of neuro recovery. Changed from citalopram to fluoxetine starting 09/06/2017, due to reduced likelihood of prolonging QT together with ondansetron. History of alcohol abuse and possible dependence. He is far enough out that there is no longer any concern for alcohol withdrawal. Macrocytosis him this improved compared to labs when he 1st presented at [facility] on . B12 levels normal.. He has been treated with thiamine; will discontinue starting 09/18/2018. Prophylaxis. He is on apixaban due to likely atrial fibrillation, and this will suffice for DVT prophylaxis. He has no history of GI bleeding, and he is no longer critically ill. Will not initiate a proton pump inhibitor or H2 wen. DISPOSITION: Lives in a 3 level home with his . Goal to return home and to be able to ambulate shorts distances with contact guard to minimal assist. There is no bedroom or bathroom on the main level. Installation of stair lift is plan for 09/23/2018. Good family support and will hire help if needed. Tentative discharge 10/01/2018 - 10/08/2018. Home visit after stair lift installed will help determine discharge date. Followup. His reports that his primary care provider is Kimberly Mchugh, whom he can see after discharge. He was seen by Dr. Alatorre of [facility], and we will determine during his stay whether he should follow up with [facility] or with neurologists in [place]. Subjective: still with some swelling but no new complaints. getting stronger. has sspoken some sentances when fustrated Objective: Vital Signs Temp Pulse Resp BP Pulse Ox 36.7 C 73 16 127/82 H 95 09/25/18 06:52 09/25/18 09:57 09/25/18 06:52 09/25/18 09:58 09/25/18 06:52 Laboratory Results 09/14/18 06:00 09/20/18 12:40 09/24/18 09/25/18 09/26/18 05:59 05:59 05:59 Intake Total 1583 1097 Output Total 710 550 Balance 873 547 PT 15.2 SEC (12.0-15.0) H 09/09/18 15:15 INR 1.18 (0.83-1.16) H 09/09/18 15:15 - Physical Exam Constitutional: no apparent distress, appears nourished, not in pain Eyes: anicteric sclera, EOMI Ears, Nose, Mouth, Throat: moist mucous membranes, hearing normal Cardiovascular: regular rate and rhythym, edema (2+) Respiratory: no respiratory distress, no rales or rhonchi Gastrointestinal: normoactive bowel sounds, soft, non-tender abdomen, no palpable masses Skin: warm Neurologic: AAOx3, weakness, facial droop, other (aphasia) Psychiatric: interacting appropriately, not anxious, not encephalopathic, thought process linear ICD10 Worksheet Patient Problems: Problems Problem Status Onset Atrial flutter Acute Chest pain Acute atrial flutter Acute
[2018-09-25] MEDS: POTASSIUM CL 10 MEQ TAB PO SCH (11:57)
[2018-09-25] MEDS: FUROSEMIDE 40 MG TAB PO SCH (14:56)
[2018-09-25] MEDS: AQUAPHOR OINTMENT 3.5 OZ JAR TP SCH ×2 (15:02→20:11)
[2018-09-25] MEDS: ATORVASTATIN CALCIUM 40 MG TAB PO SCH (20:06)
[2018-09-25] MEDS: MELATONIN 3 MG TAB PO SCH (20:06)
[2018-09-25] MEDS: traZODone 50 MG TAB PO PRN (20:07)
[2018-09-26] MEDS: ACETAMINOPHEN 500 MG TAB PO SCH ×3 (06:12→19:16)
[2018-09-26] MEDS: DICLOFENAC SODIUM 1% 100 GM GEL TP SCH ×4 (06:13→19:17)
[2018-09-26] MEDS: METOPROLOL SUCCINATE XR 50 MG TAB PO SCH (09:11)
[2018-09-26] MEDS: LOSARTAN POTASSIUM 50 MG TAB PO SCH (09:11)
[2018-09-26] MEDS: HYDROCHLOROTHIAZIDE 25 MG TAB PO SCH (09:12)
[2018-09-26] MEDS: FUROSEMIDE 40 MG TAB PO SCH ×2 (09:13→16:41)
[2018-09-26] MEDS: FAMOTIDINE 20 MG TAB PO SCH ×2 (09:13→19:16)
[2018-09-26] MEDS: APIXABAN 5 MG TAB PO SCH ×2 (09:13→19:17)
[2018-09-26] MEDS: FLUoxetine 20 MG CAP PO SCH (09:13)
[2018-09-26] MEDS: AQUAPHOR OINTMENT 3.5 OZ JAR TP SCH (10:41)
[2018-09-26] MEDS: MAG HYDROX/AL HYDROX/SIMETH 30 ML UDCUP PO PRN (10:43)
[2018-09-26] MEDS ORDERED: AQUAPHOR OINTMENT 3.5 OZ JAR TP PRN (10:51)
--- NOTE | 2018-09-26 11:10 | HOSPPROG ---
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 * Initial functional independence measure is 25 on 09/01/2017; improved to 37 as of 09/08/2018, to 49 as of 09/15/2018, and to 57 as of 09/22/2018. Bed mobility requires standby assist for out of bed and minimal assist for into bed. Transfers are done with minimal assist and a quad cane. He has ambulated 55 ft with a romeo walker and is transitioning to a quad cane. Grooming and hygiene are done seated with supervision. Upper body dressing requires minimal assist and lower body dressing requires moderate to maximal assist. Toilet transfer requires minimal to moderate assist and toileting requires moderate assist. * Continue PT and OT to optimize mobility and activities of daily living. Expressive aphasia, severe, and receptive aphasia, moderate. 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 * Has recovered social language. Overall improving but continues to have significant expressive and receptive aphasia. * Continue Speech and Language Pathology. Hypertension. * Blood pressure is below target and he is developing it edema bilateral ankles. Will reduce amlodipine to 5 mg q.day starting 09/23/2018. * Worsening edema and weight is up, 09/24/2018. Will discontinue amlodipine and initiate hydrochlorothiazide at 12.5 mg QD starting 09/25/2018. * Continue losartan 100 mg daily and metoprolol XR 50 mg daily. * Recheck BMP after 5 days, on 09/30/2017. Edema. Amlodipine may be contributing. Also has history of diastolic dysfunction and mild pulmonary hypertension seen on echocardiogram in 2015. * Initiate diuretic and discontinue amlodipine. Continue daily weights. * WEIGHT UP. IMPROVING EDEMA WITH LASIX. WILL DC AFTER TOMORROW AM DOSE Insomnia. Frequent awakenings to urinate. Postvoid residual was low at 85 so unclear if he would benefit from on alpha wen. * Urinalysis is normal. * Oxybutynin at 2.5 and then titrated to 5 mg at bedtime has not been effective. Condom catheter at night will not stay in place. He is on a toileting schedule but does not move urinate until he is ready. No easy solution to nocturia. Continue efforts of nursing. * Started melatonin 3 mg at HS on 08/31/2018. Started trazodone 50 mg at bedtime on 09/14/2018. * Advised patient to stay up later than 6:00 p.m. before attempting to go to sleep, because if he went to sleep as 6:00 in the evening and slept 8 hr he would then be awake at 2:00 in the morning. Continue current medications. Hypokalemia. Normal magnesium. * Hypertension and hypokalemia with urinary potassium loss raises the possibility of hyperaldosteronism. However plasma aldosterone concentration is below the detectable limit and plasma renin activity is slightly high, ruling out primary aldosteronism. Consider renovascular hypertension. * Improved hydration and normal potassium on BMP 09/06/2018. Decreased potassium supplement to 20 mEq daily before lunch, as it may be contributing to nausea in the morning. * Normal BMP, 09/20/2018. Hyponatremia also resolved. * RECHECK ON THURSDAY Dyspepsia. EKG and labs negative for cardiac ischemia. Anemia is resolved. * Trial of famotidine 20 mg twice daily starting 09/10/2018. * PRN MAALOX SEEMS TO HELP Nausea. Tramadol may contribute. Will discontinue and initiate oxycodone at low dose, 2.5-5 mg q.4 hours as needed. Change potassium to single dose before lunch each day. Continue ondansetron as needed. * Much improved. Right shoulder pain with possible injury in the hospital. He had x-ray showing no bony defects, so presumably it is a soft tissue injury. History of a shoulder replacement * Began scheduled acetaminophen at 1000 mg q.8 h. and tramadol 50 mg q.6 hours p.r.n. on 08/30/2018. * Added scheduled tramadol 50 mg three times daily starting 08/31/2017. Changed to oxycodone on 09/06/2018; not used since 09/16/2018. * Initiated diclofenac gel, 09/01/2017. Dysphagia. Advanced from dysphagia 2, to dysphagia 3 diet, to regular texture and thin liquids as of 09/15/2018. * Continue Speech and Language Pathology. Slight elevation of D-dimer on labs from 09/09/2018. He has no signs or symptoms of DVT or pulmonary embolus. Though he is at risk due to age, obesity and hemiplegia, he is also on apixaban which is sufficient for prophylaxis. Will not pursue further. Skin tears, right upper extremity. Healing well. Continue Allevyn dressings. Dyslipidemia. Continue atorvastatin at 80 mg p.o. at bedtime. Secondary prevention of CVA, with likely atrial fibrillation or flutter as an etiology. Continue apixaban 5 mg twice daily. Depressed mood and facilitation of neuro recovery. Changed from citalopram to fluoxetine starting 09/06/2017, due to reduced likelihood of prolonging QT together with ondansetron. History of alcohol abuse and possible dependence. He is far enough out that there is no longer any concern for alcohol withdrawal. Macrocytosis him this improved compared to labs when he 1st presented at [facility] on . B12 levels normal.. He has been treated with thiamine; will discontinue starting 09/18/2018. Prophylaxis. He is on apixaban due to likely atrial fibrillation, and this will suffice for DVT prophylaxis. He has no history of GI bleeding, and he is no longer critically ill. Will not initiate a proton pump inhibitor or H2 wen. DISPOSITION: Lives in a 3 level home with his . Goal to return home and to be able to ambulate shorts distances with contact guard to minimal assist. There is no bedroom or bathroom on the main level. Installation of stair lift is plan for 09/23/2018. Good family support and will hire help if needed. Tentative discharge 10/01/2018 - 10/08/2018. Home visit after stair lift installed will help determine discharge date. Followup. His reports that his primary care provider is Kimberly Mchugh, whom he can see after discharge. He was seen by Dr. Alatorre of [facility], and we will determine during his stay whether he should follow up with [facility] or with neurologists in [place]. Subjective: complaining of heartburn. Objective: Vital Signs Temp Pulse Resp BP Pulse Ox 36.7 C 64 18 120/79 97 09/26/18 08:00 09/26/18 09:11 09/26/18 08:00 09/26/18 09:12 09/26/18 08:00 Laboratory Results 09/14/18 06:00 09/20/18 12:40 09/25/18 09/26/18 09/27/18 05:59 05:59 05:59 Intake Total 1097 240 Output Total 550 825 Balance 547 -585 PT 15.2 SEC (12.0-15.0) H 09/09/18 15:15 INR 1.18 (0.83-1.16) H 09/09/18 15:15 - Physical Exam Constitutional: no apparent distress, appears nourished, not in pain Eyes: anicteric sclera, EOMI Ears, Nose, Mouth, Throat: moist mucous membranes Cardiovascular: regular rate and rhythym, edema (1+ better) Respiratory: no respiratory distress Gastrointestinal: normoactive bowel sounds, soft, non-tender abdomen Skin: warm Neurologic: AAOx3, weakness (right), facial droop, other (aphasia) Psychiatric: interacting appropriately, not anxious, not encephalopathic, thought process linear ICD10 Worksheet Patient Problems: Problems Problem Status Onset Atrial flutter Acute Chest pain Acute atrial flutter Acute
[2018-09-26] MEDS: POTASSIUM CL 10 MEQ TAB PO SCH (12:51)
[2018-09-26] MEDS ORDERED: POTASSIUM CL 20 MEQ TAB PO ONE (17:00)
[2018-09-26] MEDS: traZODone 50 MG TAB PO PRN (19:16)
[2018-09-26] MEDS: ATORVASTATIN CALCIUM 40 MG TAB PO SCH (19:16)
[2018-09-26] MEDS: MELATONIN 3 MG TAB PO SCH (19:16)
[2018-09-27] MEDS: ACETAMINOPHEN 500 MG TAB PO SCH ×3 (06:31→22:15)
[2018-09-27] MEDS: DICLOFENAC SODIUM 1% 100 GM GEL TP SCH ×4 (06:31→22:14)
[2018-09-27] MEDS: POLYETHYLENE GLYCOL 3350 17 GM PKT PO PRN (08:40)
[2018-09-27] MEDS: FAMOTIDINE 20 MG TAB PO SCH ×2 (08:44→22:14)
[2018-09-27] MEDS: FLUoxetine 20 MG CAP PO SCH (08:44)
[2018-09-27] MEDS: APIXABAN 5 MG TAB PO SCH ×2 (08:44→22:14)
[2018-09-27] MEDS: FUROSEMIDE 40 MG TAB PO SCH (08:44)
[2018-09-27] MEDS: HYDROCHLOROTHIAZIDE 25 MG TAB PO SCH (08:45)
[2018-09-27] MEDS: METOPROLOL SUCCINATE XR 50 MG TAB PO SCH (08:46)
[2018-09-27] MEDS: LOSARTAN POTASSIUM 50 MG TAB PO SCH (08:46)
--- NOTE | 2018-09-27 11:51 | SOAPPROG ---
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 * Initial functional independence measure is 25 on 09/01/2017; improved to 37 as of 09/08/2018, to 49 as of 09/15/2018, and to 57 as of 09/22/2018. Bed mobility requires standby assist for out of bed and minimal assist for into bed. Transfers are done with minimal assist and a quad cane. He has ambulated 55 ft with a romeo walker and is transitioning to a quad cane. Grooming and hygiene are done seated with supervision. Upper body dressing requires minimal assist and lower body dressing requires moderate to maximal assist. Toilet transfer requires minimal to moderate assist and toileting requires moderate assist. * Continue PT and OT to optimize mobility and activities of daily living. DISCUSSED WITH PATIENT AND HIS THAT HE NEEDS TO PERFORM RANGE OF MOTION OF THE FINGER FLEXORS SEVERAL TIMES PER DAY TO PREVENT INTRINSIC TIGHTNESS. Expressive aphasia, severe, and receptive aphasia, moderate. 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 * Has recovered social language. Overall improving but continues to have significant expressive and receptive aphasia. * Continue Speech and Language Pathology. Hypertension. * Blood pressure is below target and he is developing it edema bilateral ankles. BLOOD PRESSURE ON 09/27/2016 110/71. Will reduce amlodipine to 5 mg q.day starting 09/23/2018. * Worsening edema and weight is up, 09/24/2018. Will discontinue amlodipine and initiate hydrochlorothiazide at 12.5 mg QD starting 09/25/2018. * Continue losartan 100 mg daily and metoprolol XR 50 mg daily. * Recheck BMP after 5 days, on 09/30/2018. LABS FROM 09/27/2018: SODIUM 137, POTASSIUM 4.0 Edema. Amlodipine may be contributing. Also has history of diastolic dysfunction and mild pulmonary hypertension seen on echocardiogram in 2015. * Initiate diuretic and discontinue amlodipine. Continue daily weights. MINIMAL LOWER EXTREMITY EDEMA ON 09/27/2018 EXAM. Insomnia. Frequent awakenings to urinate. Postvoid residual was low at 85 so unclear if he would benefit from on alpha wen. * Urinalysis is normal. * Oxybutynin at 2.5 and then titrated to 5 mg at bedtime has not been effective. Condom catheter at night will not stay in place. He is on a toileting schedule but does not move urinate until he is ready. No easy solution to nocturia. Continue efforts of nursing. * Started melatonin 3 mg at HS on 08/31/2018. Started trazodone 50 mg at bedtime on 09/14/2018. * Advised patient to stay up later than 6:00 p.m. before attempting to go to sleep, because if he went to sleep as 6:00 in the evening and slept 8 hr he would then be awake at 2:00 in the morning. Continue current medications. Hypokalemia. POTASSIUM LEVEL HAS NORMALIZED. Normal magnesium. * Hypertension and hypokalemia with urinary potassium loss raises the possibility of hyperaldosteronism. However plasma aldosterone concentration is below the detectable limit and plasma renin activity is slightly high, ruling out primary aldosteronism. Consider renovascular hypertension. * Improved hydration and normal potassium on BMP 09/06/2018. Decreased potassium supplement to 20 mEq daily before lunch, as it may be contributing to nausea in the morning. * Normal BMP, 09/20/2018. Hyponatremia also resolved. Dyspepsia. EKG and labs negative for cardiac ischemia. Anemia is resolved. * Trial of famotidine 20 mg twice daily starting 09/10/2018. Nausea. Tramadol may contribute. Will discontinue and initiate oxycodone at low dose, 2.5-5 mg q.4 hours as needed. Change potassium to single dose before lunch each day. Continue ondansetron as needed. * Much improved. Right shoulder pain with possible injury in the hospital. He had x-ray showing no bony defects, so presumably it is a soft tissue injury. History of a shoulder replacement * Began scheduled acetaminophen at 1000 mg q.8 h. and tramadol 50 mg q.6 hours p.r.n. on 08/30/2018. * Added scheduled tramadol 50 mg three times daily starting 08/31/2017. Changed to oxycodone on 09/06/2018; not used since 09/16/2018. * Initiated diclofenac gel, 09/01/2017. Dysphagia. Advanced from dysphagia 2, to dysphagia 3 diet, to regular texture and thin liquids as of 09/15/2018. * Continue Speech and Language Pathology. Slight elevation of D-dimer on labs from 09/09/2018. He has no signs or symptoms of DVT or pulmonary embolus. Though he is at risk due to age, obesity and hemiplegia, he is also on apixaban which is sufficient for prophylaxis. Will not pursue further. Skin tears, right upper extremity. Healing well. Continue Allevyn dressings. Dyslipidemia. Continue atorvastatin at 80 mg p.o. at bedtime. Secondary prevention of CVA, with likely atrial fibrillation or flutter as an etiology. Continue apixaban 5 mg twice daily. Depressed mood and facilitation of neuro recovery. Changed from citalopram to fluoxetine starting 09/06/2017, due to reduced likelihood of prolonging QT together with ondansetron. History of alcohol abuse and possible dependence. He is far enough out that there is no longer any concern for alcohol withdrawal. Macrocytosis him this improved compared to labs when he 1st presented at [facility] on . B12 levels normal.. He has been treated with thiamine; will discontinue starting 09/18/2018. Prophylaxis. He is on apixaban due to likely atrial fibrillation, and this will suffice for DVT prophylaxis. He has no history of GI bleeding, and he is no longer critically ill. Will not initiate a proton pump inhibitor or H2 wen. DISPOSITION: Lives in a 3 level home with his . Goal to return home and to be able to ambulate shorts distances with contact guard to minimal assist. There is no bedroom or bathroom on the main level. Installation of stair lift is plan for 09/23/2018. Good family support and will hire help if needed. DISCHARGE SET FOR Thursday09/30/2016 Followup. His reports that his primary care provider is Kimberly Mchugh, whom he can see after discharge. He was seen by Dr. Alatorre of [facility], and we will determine during his stay whether he should follow up with [facility] or with neurologists in [place]. 09/27/18 11:51 09/27/18 11:53 Subjective: PATIENT DOES NOT VERBALIZE ANY COMPLAINTS. HIS HAS NO QUESTIONS OR CONCERNS. NO PROBLEMS REPORTED BY REHAB STAFF. DENIES SHORTNESS OF BREATH OR CHEST PAIN. Objective: Vital Signs Temp Pulse Resp BP Pulse Ox 36.7 C 77 16 110/71 93 09/26/18 20:00 09/27/18 08:00 09/27/18 08:00 09/27/18 08:00 09/27/18 08:00 Laboratory Results 09/14/18 06:00 09/27/18 06:00 09/26/18 09/27/18 09/28/18 05:59 05:59 05:59 Intake Total 240 840 707 Output Total 825 800 200 Balance -585 40 507 PT 15.2 SEC (12.0-15.0) H 09/09/18 15:15 INR 1.18 (0.83-1.16) H 09/09/18 15:15 Physical Exam - Physical Exam General Appearance: WD/WN, alert, no apparent distress Respiratory: lungs clear, normal breath sounds, No crackles (NO CRACKLES APPRECIATED) Cardiac/Chest: regular rate, rhythm, edema (TRACE PRETIBIAL EDEMA. NO PITTING.) Abdomen: normal bowel sounds, non-tender, soft Extremities: No swelling, No Ericka's sign Neuro/Psych: motor weakness (RIGHT HEEL CORD TIGHTNESS. BILATERAL SHOULDER GIRDLE WEAKNESS MORE PRONOUNCED ON THE RIGHT. BUT HAS FUNCTIONAL RANGE OF MOTION 3+ 4-/5 DELTOID, 3/5 RIGHT BICEPS 3/5 RIGHT WRIST EXTENSORS. FINGER FLEXORS ARE SLIGHTLY TIGHT ON THE RIGHT.) ICD10 Worksheet Patient Problems: Problems Problem Status Onset Atrial flutter Acute Chest pain Acute atrial flutter Acute
[2018-09-27] MEDS: POTASSIUM CL 10 MEQ TAB PO SCH (12:17)
[2018-09-27] MEDS: MAG HYDROX/AL HYDROX/SIMETH 30 ML UDCUP PO PRN (13:55)
--- NOTE | 2018-09-27 18:43 | SOAPPROG ---
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 * Initial functional independence measure is 25 on 09/01/2017; improved to 37 as of 09/08/2018, to 49 as of 09/15/2018, and to 57 as of 09/22/2018. Bed mobility requires standby assist for out of bed and minimal assist for into bed. Transfers are done with minimal assist and a quad cane. He has ambulated 55 ft with a romeo walker and is transitioning to a quad cane. Grooming and hygiene are done seated with supervision. Upper body dressing requires minimal assist and lower body dressing requires moderate to maximal assist. Toilet transfer requires minimal to moderate assist and toileting requires moderate assist. * Continue PT and OT to optimize mobility and activities of daily living. DISCUSSED WITH PATIENT AND HIS THAT HE NEEDS TO PERFORM RANGE OF MOTION OF THE FINGER FLEXORS SEVERAL TIMES PER DAY TO PREVENT INTRINSIC TIGHTNESS. Expressive aphasia, severe, and receptive aphasia, moderate. 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 * Has recovered social language. Overall improving but continues to have significant expressive and receptive aphasia. * Continue Speech and Language Pathology. Hypertension. * Blood pressure is below target and he is developing it edema bilateral ankles. BLOOD PRESSURE ON 09/27/2016 110/71. Will reduce amlodipine to 5 mg q.day starting 09/23/2018. * Worsening edema and weight is up, 09/24/2018. Will discontinue amlodipine and initiate hydrochlorothiazide at 12.5 mg QD starting 09/25/2018. * Continue losartan 100 mg daily and metoprolol XR 50 mg daily. * Recheck BMP after 5 days, on 09/30/2018. LABS FROM 09/27/2018: SODIUM 137, POTASSIUM 4.0 Edema. Amlodipine may be contributing. Also has history of diastolic dysfunction and mild pulmonary hypertension seen on echocardiogram in 2015. * Initiate diuretic and discontinue amlodipine. Continue daily weights. MINIMAL LOWER EXTREMITY EDEMA ON 09/27/2018 EXAM. Insomnia. Frequent awakenings to urinate. Postvoid residual was low at 85 so unclear if he would benefit from on alpha wen. * Urinalysis is normal. * Oxybutynin at 2.5 and then titrated to 5 mg at bedtime has not been effective. Condom catheter at night will not stay in place. He is on a toileting schedule but does not move urinate until he is ready. No easy solution to nocturia. Continue efforts of nursing. * Started melatonin 3 mg at HS on 08/31/2018. Started trazodone 50 mg at bedtime on 09/14/2018. * Advised patient to stay up later than 6:00 p.m. before attempting to go to sleep, because if he went to sleep as 6:00 in the evening and slept 8 hr he would then be awake at 2:00 in the morning. Continue current medications. Hypokalemia. POTASSIUM LEVEL HAS NORMALIZED. Normal magnesium. * Hypertension and hypokalemia with urinary potassium loss raises the possibility of hyperaldosteronism. However plasma aldosterone concentration is below the detectable limit and plasma renin activity is slightly high, ruling out primary aldosteronism. Consider renovascular hypertension. * Improved hydration and normal potassium on BMP 09/06/2018. Decreased potassium supplement to 20 mEq daily before lunch, as it may be contributing to nausea in the morning. * Normal BMP, 09/20/2018. Hyponatremia also resolved. Dyspepsia. EKG and labs negative for cardiac ischemia. Anemia is resolved. * Trial of famotidine 20 mg twice daily starting 09/10/2018. Nausea. Tramadol may contribute. Will discontinue and initiate oxycodone at low dose, 2.5-5 mg q.4 hours as needed. Change potassium to single dose before lunch each day. Continue ondansetron as needed. * Much improved. Right shoulder pain with possible injury in the hospital. He had x-ray showing no bony defects, so presumably it is a soft tissue injury. History of a shoulder replacement * Began scheduled acetaminophen at 1000 mg q.8 h. and tramadol 50 mg q.6 hours p.r.n. on 08/30/2018. * Added scheduled tramadol 50 mg three times daily starting 08/31/2017. Changed to oxycodone on 09/06/2018; not used since 09/16/2018. * Initiated diclofenac gel, 09/01/2017. Dysphagia. Advanced from dysphagia 2, to dysphagia 3 diet, to regular texture and thin liquids as of 09/15/2018. * Continue Speech and Language Pathology. Slight elevation of D-dimer on labs from 09/09/2018. He has no signs or symptoms of DVT or pulmonary embolus. Though he is at risk due to age, obesity and hemiplegia, he is also on apixaban which is sufficient for prophylaxis. Will not pursue further. Skin tears, right upper extremity. Healing well. Continue Allevyn dressings. Dyslipidemia. Continue atorvastatin at 80 mg p.o. at bedtime. Secondary prevention of CVA, with likely atrial fibrillation or flutter as an etiology. Continue apixaban 5 mg twice daily. Depressed mood and facilitation of neuro recovery. Changed from citalopram to fluoxetine starting 09/06/2017, due to reduced likelihood of prolonging QT together with ondansetron. History of alcohol abuse and possible dependence. He is far enough out that there is no longer any concern for alcohol withdrawal. Macrocytosis him this improved compared to labs when he 1st presented at [facility] on . B12 levels normal.. He has been treated with thiamine; will discontinue starting 09/18/2018. Prophylaxis. He is on apixaban due to likely atrial fibrillation, and this will suffice for DVT prophylaxis. He has no history of GI bleeding, and he is no longer critically ill. Will not initiate a proton pump inhibitor or H2 wen. DISPOSITION: Lives in a 3 level home with his . Goal to return home and to be able to ambulate shorts distances with contact guard to minimal assist. There is no bedroom or bathroom on the main level. Installation of stair lift is plan for 09/23/2018. Good family support and will hire help if needed. DISCHARGE SET FOR Thursday09/30/2016 Followup. His reports that his primary care provider is Kimberly Mchugh, whom he can see after discharge. He was seen by Dr. Alatorre of [facility], and we will determine during his stay whether he should follow up with [facility] or with neurologists in [place]. Addendum: Patient needs a large base quad cane for mobility limitations that significantly impairs 1 or more mobility related ADLs in the home. Mr. Hubbard has demonstrated that he is able to use this safely and functional mobility deficit can be resolved with the large base quad cane. Objective: Vital Signs Temp Pulse Resp BP Pulse Ox 36.7 C 77 16 110/71 93 09/26/18 20:00 09/27/18 08:00 09/27/18 08:00 09/27/18 08:00 09/27/18 08:00 Laboratory Results 09/14/18 06:00 09/27/18 06:00 09/26/18 09/27/18 09/28/18 05:59 05:59 05:59 Intake Total 007 055 2288 Output Total 825 800 200 Balance -585 40 979 PT 15.2 SEC (12.0-15.0) H 09/09/18 15:15 INR 1.18 (0.83-1.16) H 09/09/18 15:15 ICD10 Worksheet Patient Problems: Problems Problem Status Onset Atrial flutter Acute Chest pain Acute atrial flutter Acute
[2018-09-27] MEDS: ATORVASTATIN CALCIUM 40 MG TAB PO SCH (22:14)
[2018-09-27] MEDS: MELATONIN 3 MG TAB PO SCH (22:15)
[2018-09-28] MEDS: ACETAMINOPHEN 500 MG TAB PO SCH ×3 (06:03→20:20)
[2018-09-28] MEDS: DICLOFENAC SODIUM 1% 100 GM GEL TP SCH ×4 (06:03→20:17)
[2018-09-28] MEDS: HYDROCHLOROTHIAZIDE 25 MG TAB PO SCH (07:55)
[2018-09-28] MEDS: METOPROLOL SUCCINATE XR 50 MG TAB PO SCH (07:57)
[2018-09-28] MEDS: LOSARTAN POTASSIUM 50 MG TAB PO SCH (07:58)
[2018-09-28] MEDS: FLUoxetine 20 MG CAP PO SCH (07:58)
[2018-09-28] MEDS: APIXABAN 5 MG TAB PO SCH ×2 (07:58→20:17)
[2018-09-28] MEDS: FAMOTIDINE 20 MG TAB PO SCH ×2 (07:58→20:17)
--- NOTE | 2018-09-28 12:04 | SOAPPROG ---
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 * Initial functional independence measure is 25 on 09/01/2017; improved to 37 as of 09/08/2018, to 49 as of 09/15/2018, and to 57 as of 09/22/2018. Bed mobility requires standby assist for out of bed and minimal assist for into bed. Transfers are done with minimal assist and a quad cane. He has ambulated 55 ft with a romeo walker and is transitioning to a quad cane. Grooming and hygiene are done seated with supervision. Upper body dressing requires minimal assist and lower body dressing requires moderate to maximal assist. Toilet transfer requires minimal to moderate assist and toileting requires moderate assist. * Continue PT and OT to optimize mobility and activities of daily living. DISCUSSED WITH PATIENT AND HIS THAT HE WOULD BENEFIT FROM A SUPINE CYCLE FOR HOME USE. DISCUSSED WITH PATIENT AND HIS THAT WENT HOME HE SHOULD BE ENCOURAGED TO GET UP AND WALK AT LEAST ONCE PER HOUR. ON 09/27, DISCUSSED WITH PATIENT AND HIS THAT HE NEEDS TO PERFORM RANGE OF MOTION OF THE FINGER FLEXORS SEVERAL TIMES PER DAY TO PREVENT INTRINSIC TIGHTNESS. Expressive aphasia, severe, and receptive aphasia, moderate. 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 * Has recovered social language. Overall improving but continues to have significant expressive and receptive aphasia. * Continue Speech and Language Pathology. Hypertension. * Blood pressure is below target and he is developing it edema bilateral ankles. BLOOD PRESSURE ON 09/28 126/80. Will reduce amlodipine to 5 mg q.day starting 09/23/2018. * Worsening edema and weight is up, 09/24/2018. Will discontinue amlodipine and initiate hydrochlorothiazide at 12.5 mg QD starting 09/25/2018. * Continue losartan 100 mg daily and metoprolol XR 50 mg daily. * Recheck BMP after 5 days, on 09/30/2018. LABS FROM 09/27/2018: SODIUM 137, POTASSIUM 4.0 Edema. Amlodipine may be contributing. NO LOWER EXTREMITY EDEMA ON 09/28 Insomnia. Frequent awakenings to urinate. Postvoid residual was low at 85 so unclear if he would benefit from on alpha wen. * Urinalysis is normal. * Oxybutynin at 2.5 and then titrated to 5 mg at bedtime has not been effective. Condom catheter at night will not stay in place. He is on a toileting schedule but does not move urinate until he is ready. No easy solution to nocturia. Continue efforts of nursing. * Started melatonin 3 mg at HS on 08/31/2018. Started trazodone 50 mg at bedtime on 09/14/2018. * Advised patient to stay up later than 6:00 p.m. before attempting to go to sleep, because if he went to sleep as 6:00 in the evening and slept 8 hr he would then be awake at 2:00 in the morning. Continue current medications. Hypokalemia. POTASSIUM LEVEL HAS NORMALIZED OF 09/27. Normal magnesium. * Hypertension and hypokalemia with urinary potassium loss raises the possibility of hyperaldosteronism. However plasma aldosterone concentration is below the detectable limit and plasma renin activity is slightly high, ruling out primary aldosteronism. Consider renovascular hypertension. * Improved hydration and normal potassium on BMP 09/06/2018. Decreased potassium supplement to 20 mEq daily before lunch, as it may be contributing to nausea in the morning. * Normal BMP, 09/20/2018. Hyponatremia also resolved. Dyspepsia. EKG and labs negative for cardiac ischemia. Anemia is resolved. * Trial of famotidine 20 mg twice daily starting 09/10/2018. Nausea. Tramadol may contribute. Will discontinue and initiate oxycodone at low dose, 2.5-5 mg q.4 hours as needed. Change potassium to single dose before lunch each day. Continue ondansetron as needed. * Much improved. Right shoulder pain with possible injury in the hospital. DENIES CURRENT RIGHT SHOULDER PAIN OF 09/28 He had x-ray showing no bony defects, so presumably it is a soft tissue injury. History of a shoulder replacement * Began scheduled acetaminophen at 1000 mg q.8 h. and tramadol 50 mg q.6 hours p.r.n. on 08/30/2018. * Added scheduled tramadol 50 mg three times daily starting 08/31/2017. Changed to oxycodone on 09/06/2018; not used since 09/16/2018. * Initiated diclofenac gel, 09/01/2017. Dysphagia. Advanced from dysphagia 2, to dysphagia 3 diet, to regular texture and thin liquids as of 09/15/2018. * Continue Speech and Language Pathology. Slight elevation of D-dimer on labs from 09/09/2018. He has no signs or symptoms of DVT or pulmonary embolus. Though he is at risk due to age, obesity and hemiplegia, he is also on apixaban which is sufficient for prophylaxis. Will not pursue further. Skin tears, right upper extremity. Healing well. Continue Allevyn dressings. Dyslipidemia. Continue atorvastatin at 80 mg p.o. at bedtime. Secondary prevention of CVA, with likely atrial fibrillation or flutter as an etiology. Continue apixaban 5 mg twice daily. Depressed mood and facilitation of neuro recovery. Changed from citalopram to fluoxetine starting 09/06/2017, due to reduced likelihood of prolonging QT together with ondansetron. History of alcohol abuse and possible dependence. He is far enough out that there is no longer any concern for alcohol withdrawal. Macrocytosis him this improved compared to labs when he 1st presented at [facility] on . B12 levels normal.. He has been treated with thiamine; will discontinue starting 09/18/2018. Prophylaxis. He is on apixaban due to likely atrial fibrillation, and this will suffice for DVT prophylaxis. He has no history of GI bleeding, and he is no longer critically ill. Will not initiate a proton pump inhibitor or H2 wen. DISPOSITION: Lives in a 3 level home with his . Goal to return home and to be able to ambulate shorts distances with contact guard to minimal assist. There is no bedroom or bathroom on the main level. Installation of stair lift is plan for 09/23/2018. Good family support and will hire help if needed. DISCHARGE SET FOR Thursday09/30/2016 Followup. His reports that his primary care provider is Kimberly Mchugh, whom he can see after discharge. He was seen by Dr. Alatorre of [facility], and we will determine during his stay whether he should follow up with [facility] or with neurologists in [place]. Addendum FROM 09/27/2018: Patient needs a large base quad cane for mobility limitations that significantly impairs 1 or more mobility related ADLs in the home. Mr. Hubbard has demonstrated that he is able to use this safely and functional mobility deficit can be resolved with the large base quad cane. 09/28/18 12:02 Subjective: NO COMPLAINTS THIS MORNING. HE HAD A HOME VISIT EARLIER TODAY WHICH APPARENTLY WENT REALLY WELL ACCORDING TO HIS . Objective: Vital Signs Temp Pulse Resp BP Pulse Ox 36.6 C 81 16 126/80 H 94 09/28/18 06:09 09/28/18 07:57 09/28/18 06:09 09/28/18 07:58 09/28/18 06:09 Laboratory Results 09/14/18 06:00 09/27/18 06:00 09/27/18 09/28/18 09/29/18 05:59 05:59 05:59 Intake Total 840 1536 336 Output Total 800 400 Balance 40 1136 336 PT 15.2 SEC (12.0-15.0) H 09/09/18 15:15 INR 1.18 (0.83-1.16) H 09/09/18 15:15 Physical Exam - Physical Exam General Appearance: WD/WN, alert, no apparent distress Respiratory: lungs clear, normal breath sounds Abdomen: normal bowel sounds, non-tender, soft Extremities: No swelling, No Ericka's sign Neuro/Psych: aphasia, motor weakness (NO SIGNIFICANT CHANGE IN UPPER OR LOWER EXTREMITY MOTOR EXAM. HE HAS FUNCTIONAL SHOULDER GIRDLE STRENGTH. HE IS AMBULATING WITH A QUAD CANE 35 FT X3.), speech abnormalities ICD10 Worksheet Patient Problems: Problems Problem Status Onset Atrial flutter Acute Chest pain Acute atrial flutter Acute
[2018-09-28] MEDS: POTASSIUM CL 10 MEQ TAB PO SCH (12:59)
--- NOTE | 2018-09-28 16:59 | SOAPPROG ---
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 * Initial functional independence measure is 25 on 09/01/2017; improved to 37 as of 09/08/2018, to 49 as of 09/15/2018, and to 57 as of 09/22/2018. Bed mobility requires standby assist for out of bed and minimal assist for into bed. Transfers are done with minimal assist and a quad cane. He has ambulated 55 ft with a romeo walker and is transitioning to a quad cane. Grooming and hygiene are done seated with supervision. Upper body dressing requires minimal assist and lower body dressing requires moderate to maximal assist. Toilet transfer requires minimal to moderate assist and toileting requires moderate assist. * Continue PT and OT to optimize mobility and activities of daily living. DISCUSSED WITH PATIENT AND HIS THAT HE WOULD BENEFIT FROM A SUPINE CYCLE FOR HOME USE. DISCUSSED WITH PATIENT AND HIS THAT WENT HOME HE SHOULD BE ENCOURAGED TO GET UP AND WALK AT LEAST ONCE PER HOUR. ON 09/27, DISCUSSED WITH PATIENT AND HIS THAT HE NEEDS TO PERFORM RANGE OF MOTION OF THE FINGER FLEXORS SEVERAL TIMES PER DAY TO PREVENT INTRINSIC TIGHTNESS. Expressive aphasia, severe, and receptive aphasia, moderate. 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 * Has recovered social language. Overall improving but continues to have significant expressive and receptive aphasia. * Continue Speech and Language Pathology. Hypertension. * Blood pressure is below target and he is developing it edema bilateral ankles. BLOOD PRESSURE ON 09/28 126/80. Will reduce amlodipine to 5 mg q.day starting 09/23/2018. * Worsening edema and weight is up, 09/24/2018. Will discontinue amlodipine and initiate hydrochlorothiazide at 12.5 mg QD starting 09/25/2018. * Continue losartan 100 mg daily and metoprolol XR 50 mg daily. * Recheck BMP after 5 days, on 09/30/2018. LABS FROM 09/27/2018: SODIUM 137, POTASSIUM 4.0 Edema. Amlodipine may be contributing. NO LOWER EXTREMITY EDEMA ON 09/28 Insomnia. Frequent awakenings to urinate. Postvoid residual was low at 85 so unclear if he would benefit from on alpha wen. * Urinalysis is normal. * Oxybutynin at 2.5 and then titrated to 5 mg at bedtime has not been effective. Condom catheter at night will not stay in place. He is on a toileting schedule but does not move urinate until he is ready. No easy solution to nocturia. Continue efforts of nursing. * Started melatonin 3 mg at HS on 08/31/2018. Started trazodone 50 mg at bedtime on 09/14/2018. * Advised patient to stay up later than 6:00 p.m. before attempting to go to sleep, because if he went to sleep as 6:00 in the evening and slept 8 hr he would then be awake at 2:00 in the morning. Continue current medications. Hypokalemia. POTASSIUM LEVEL HAS NORMALIZED OF 09/27. Normal magnesium. * Hypertension and hypokalemia with urinary potassium loss raises the possibility of hyperaldosteronism. However plasma aldosterone concentration is below the detectable limit and plasma renin activity is slightly high, ruling out primary aldosteronism. Consider renovascular hypertension. * Improved hydration and normal potassium on BMP 09/06/2018. Decreased potassium supplement to 20 mEq daily before lunch, as it may be contributing to nausea in the morning. * Normal BMP, 09/20/2018. Hyponatremia also resolved. Dyspepsia. EKG and labs negative for cardiac ischemia. Anemia is resolved. * Trial of famotidine 20 mg twice daily starting 09/10/2018. Nausea. Tramadol may contribute. Will discontinue and initiate oxycodone at low dose, 2.5-5 mg q.4 hours as needed. Change potassium to single dose before lunch each day. Continue ondansetron as needed. * Much improved. Right shoulder pain with possible injury in the hospital. DENIES CURRENT RIGHT SHOULDER PAIN OF 09/28 He had x-ray showing no bony defects, so presumably it is a soft tissue injury. History of a shoulder replacement * Began scheduled acetaminophen at 1000 mg q.8 h. and tramadol 50 mg q.6 hours p.r.n. on 08/30/2018. * Added scheduled tramadol 50 mg three times daily starting 08/31/2017. Changed to oxycodone on 09/06/2018; not used since 09/16/2018. * Initiated diclofenac gel, 09/01/2017. Dysphagia. Advanced from dysphagia 2, to dysphagia 3 diet, to regular texture and thin liquids as of 09/15/2018. * Continue Speech and Language Pathology. Slight elevation of D-dimer on labs from 09/09/2018. He has no signs or symptoms of DVT or pulmonary embolus. Though he is at risk due to age, obesity and hemiplegia, he is also on apixaban which is sufficient for prophylaxis. Will not pursue further. Skin tears, right upper extremity. Healing well. Continue Allevyn dressings. Dyslipidemia. Continue atorvastatin at 80 mg p.o. at bedtime. Secondary prevention of CVA, with likely atrial fibrillation or flutter as an etiology. Continue apixaban 5 mg twice daily. Depressed mood and facilitation of neuro recovery. Changed from citalopram to fluoxetine starting 09/06/2017, due to reduced likelihood of prolonging QT together with ondansetron. History of alcohol abuse and possible dependence. He is far enough out that there is no longer any concern for alcohol withdrawal. Macrocytosis him this improved compared to labs when he [facility] on . B12 levels normal.. He has been treated with thiamine; will discontinue starting 09/18/2018. Prophylaxis. He is on apixaban due to likely atrial fibrillation, and this will suffice for DVT prophylaxis. He has no history of GI bleeding, and he is no longer critically ill. Will not initiate a proton pump inhibitor or H2 wen. DISPOSITION: Lives in a 3 level home with his . Goal to return home and to be able to ambulate shorts distances with contact guard to minimal assist. There is no bedroom or bathroom on the main level. Installation of stair lift is plan for 09/23/2018. Good family support and will hire help if needed. DISCHARGE SET FOR Thursday09/30/2016 Followup. His reports that his primary care provider is Kimberly Mchugh, whom he can see after discharge. He was seen by Dr. Alatorre of [facility], and we will determine during his stay whether he should follow up with [facility] or with neurologists in [place]. Addendum FROM 09/27/2018: Patient needs a large base quad cane for mobility limitations that significantly impairs 1 or more mobility related ADLs in the home. Mr. Hubbard has demonstrated that he is able to use this safely and functional mobility deficit can be resolved with the large base quad cane. 09/28/18 12:02 Objective: Vital Signs Temp Pulse Resp BP Pulse Ox 36.6 C 81 16 126/80 H 94 09/28/18 06:09 09/28/18 07:57 09/28/18 06:09 09/28/18 07:58 09/28/18 06:09 Laboratory Results 09/14/18 06:00 09/27/18 06:00 09/27/18 09/28/18 09/29/18 05:59 05:59 05:59 Intake Total 840 1536 576 Output Total 800 400 Balance 40 1136 576 PT 15.2 SEC (12.0-15.0) H 09/09/18 15:15 INR 1.18 (0.83-1.16) H 09/09/18 15:15 ICD10 Worksheet Patient Problems: Problems Problem Status Onset Atrial flutter Acute Chest pain Acute atrial flutter Acute
[2018-09-28] MEDS: MELATONIN 3 MG TAB PO SCH (20:17)
[2018-09-28] MEDS: ATORVASTATIN CALCIUM 40 MG TAB PO SCH (20:17)
[2018-09-28] MEDS: traZODone 50 MG TAB PO PRN (20:26)
[2018-09-29] MEDS: DICLOFENAC SODIUM 1% 100 GM GEL TP SCH ×3 (06:52→17:47)
[2018-09-29] MEDS: ACETAMINOPHEN 500 MG TAB PO SCH ×3 (06:52→20:35)
[2018-09-29] MEDS: FAMOTIDINE 20 MG TAB PO SCH ×2 (07:49→20:35)
[2018-09-29] MEDS: APIXABAN 5 MG TAB PO SCH ×2 (08:26→20:35)
[2018-09-29] MEDS: LOSARTAN POTASSIUM 50 MG TAB PO SCH (08:27)
[2018-09-29] MEDS: METOPROLOL SUCCINATE XR 50 MG TAB PO SCH (08:27)
[2018-09-29] MEDS: FLUoxetine 20 MG CAP PO SCH (08:27)
[2018-09-29] MEDS: HYDROCHLOROTHIAZIDE 25 MG TAB PO SCH (08:27)
--- NOTE | 2018-09-29 11:52 | SOAPPROG ---
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 * Initial functional independence measure is 25 on 09/01/2017; improved to 37 as of 09/08/2018, to 49 as of 09/15/2018, to 57 as of 09/22/2018, and to 66 as of 2018. He needs assist to get into bed to lift his legs but is standby assist only for getting out of bed. Standby assist with sit to stand to a 22 in surface, minimal assist for a lower surface. Ambulated 30 ft with standby assist to contact guard assist using a quad cane. During home visit was able to neck cruciate 7 steps with his stair glide at the supervision level. Negotiated a curb step with contact guard to minimal assist. Car transfer was done with standby assist. Upper body dressing requires setup and supervision. Lower body dressing requires minimal assist. Shower transfer is done with contact guard assist and chin bathing requires moderate assist. Toilet transfer requires minimal assist * Continue PT and OT to optimize mobility and activities of daily living. Expressive aphasia, severe, and receptive aphasia, moderate. 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 * Has recovered social language. * Improving receptive language skills. Better able to follow conversations. * Continue Speech and Language Pathology. Hypertension. * Blood pressure is below target and he is developing it edema bilateral ankles. Reduced amlodipine to 5 mg q.day starting 09/23/2018. * Worsening edema and weight is up, 09/24/2018. Discontinued amlodipine and initiate hydrochlorothiazide at 12.5 mg QD starting 09/25/2018. * Continue losartan 100 mg daily and metoprolol XR 50 mg daily. * BMP normal except for slight dehydration on 09/27/2018.. Edema. Amlodipine may be contributing. Also has history of diastolic dysfunction and mild pulmonary hypertension seen on echocardiogram in 2015. * Initiate diuretic and discontinue amlodipine. Continue daily weights. Diarrhea, 09/29/2018, unclear etiology. * Had constipation previously. Abdominal x-ray 09/29/2018 ruled out a higher impaction. * Stool test positive for C difficile by PCR. reports that he had antibiotics at [facility] prior to his transfer to inpatient rehabilitation. * Discussed with Infectious Disease on 09/29/2018. Patient has no fever or abdominal pain. Check CBC, ESR and CRP to evaluate for inflammatory state and all was negative except for mild elevation of CRP. Observe for resolution of diarrhea at treat for now. Insomnia. Frequent awakenings to urinate. Postvoid residual was low at 85 so unclear if he would benefit from on alpha wen. * Urinalysis is normal. * Oxybutynin at 2.5 and then titrated to 5 mg at bedtime has not been effective. Condom catheter at night will not stay in place. He is on a toileting schedule but does not move urinate until he is ready. No easy solution to nocturia. Continue efforts of nursing. * Started melatonin 3 mg at HS on 08/31/2018. Started trazodone 50 mg at bedtime on 09/14/2018. * Advised patient to stay up later than 6:00 p.m. before attempting to go to sleep, because if he went to sleep as 6:00 in the evening and slept 8 hr he would then be awake at 2:00 in the morning. Continue current medications. Hypokalemia. Normal magnesium. * Hypertension and hypokalemia with urinary potassium loss raises the possibility of hyperaldosteronism. However plasma aldosterone concentration is below the detectable limit and plasma renin activity is slightly high, ruling out primary aldosteronism. Consider renovascular hypertension. * Improved hydration and normal potassium on BMP 09/06/2018. Decreased potassium supplement to 20 mEq daily before lunch, as it may be contributing to nausea in the morning. * Normal [facility] [place], 09/20/2018. Hyponatremia also resolved. Dyspepsia. EKG and labs negative for cardiac ischemia. Anemia is resolved. * Trial of famotidine 20 mg twice daily starting 09/10/2018. Nausea. Tramadol may contribute. Will discontinue and initiate oxycodone at low dose, 2.5-5 mg q.4 hours as needed. Change potassium to single dose before lunch each day. Continue ondansetron as needed. * Much improved. Right shoulder pain with possible injury in the hospital. He had x-ray showing no bony defects, so presumably it is a soft tissue injury. History of a shoulder replacement * Began scheduled acetaminophen at 1000 mg q.8 h. and tramadol 50 mg q.6 hours p.r.n. on 08/30/2018. * Added scheduled tramadol 50 mg three times daily starting 08/31/2017. Changed to oxycodone on 09/06/2018; not used since 09/16/2018. * Initiated diclofenac gel, 09/01/2017. Dysphagia. Advanced from dysphagia 2, to dysphagia 3 diet, to regular texture and thin liquids as of 09/15/2018. * Continue Speech and Language Pathology. Slight elevation of D-dimer on labs from 09/09/2018. He has no signs or symptoms of DVT or pulmonary embolus. Though he is at risk due to age, obesity and hemiplegia, he is also on apixaban which is sufficient for prophylaxis. Will not pursue further. Skin tears, right upper extremity. Healing well. Continue Allevyn dressings. Dyslipidemia. Continue atorvastatin at 80 mg p.o. at bedtime. Secondary prevention of CVA, with likely atrial fibrillation or flutter as an etiology. Continue apixaban 5 mg twice daily. Depressed mood and facilitation of neuro recovery. Changed from citalopram to fluoxetine starting 09/06/2017, due to reduced likelihood of prolonging QT together with ondansetron. History of alcohol abuse and possible dependence. He is far enough out that there is no longer any concern for alcohol withdrawal. Macrocytosis him this improved compared to labs when he 1st presented at [facility] on . B12 levels normal.. He has been treated with thiamine; will discontinue starting 09/18/2018. Prophylaxis. He is on apixaban due to likely atrial fibrillation, and this will suffice for DVT prophylaxis. He has no history of GI bleeding, and he is no longer critically ill. Will not initiate a proton pump inhibitor or H2 wen. DISPOSITION: Attended staffing, 15 min. Discussed with welfare case worker, dietitian , nursing, PT, OT, [employer]. Lives in a 3 level home with his . Goal to return home and to be able to ambulate shorts distances with contact guard to minimal assist. There is no bedroom or bathroom on the main level. Very successful home visit. Did well with stair glide. Will have commode on main level. Good family support and will hire help. Plan for discharge 10/01/2018. Will have home PT, OT, [employer], [employer]. Followup. His reports that his primary care provider is Kimberly Mchugh, whom he can see after discharge. He was seen by Dr. Alatorre of [facility], and we will determine during his stay whether he should follow up with [facility] or with neurologists in [place]. 09/30/18 12:24 Subjective: Complains of diarrhea, 5 times today. Abdomen feels bloated. Denies fevers or chills, denies abdominal pain or nausea. No recent change in diet. Tyler constipated with hard stool and received senna and polyethylene glycol 2 days ago. Objective: Vital Signs Temp Pulse Resp BP Pulse Ox 37.0 C 89 20 141/91 H 97 09/29/18 07:13 09/29/18 07:13 09/29/18 07:13 09/29/18 07:13 09/29/18 07:13 Laboratory Results 09/14/18 06:00 09/27/18 06:00 09/28/18 09/29/18 09/30/18 05:59 05:59 05:59 Intake Total 1536 1062 Output Total 400 500 Balance 1136 562 PT 15.2 SEC (12.0-15.0) H 09/09/18 15:15 INR 1.18 (0.83-1.16) H 09/09/18 15:15 - Time Spent With Patient Time Spent With Patient: Greater than 35 min floor time today, including more than 50% of time in coordination of care during staffing, and counseling patient and . Physical Exam - Physical Exam General Appearance: WD/WN, alert, no apparent distress Respiratory: No respiratory distress, No accessory muscle use Abdomen: normal bowel sounds, non-tender, soft, No distended Skin: normal color, warm/dry Neuro/Psych: alert, normal mood/affect, aphasia (Expressive greater than receptive), motor weakness (Right upper and extremities) ICD10 Worksheet Patient Problems: Problems Problem Status Onset Atrial flutter Acute Chest pain Acute atrial flutter Acute
[2018-09-29] MEDS: POTASSIUM CL 10 MEQ TAB PO SCH (11:57)
[2018-09-29] MEDS: MAG HYDROX/AL HYDROX/SIMETH 30 ML UDCUP PO PRN (14:27)
[2018-09-29 19:37] LABS: PLATELET COUNT 183 10^3/uL (150-400)
[2018-09-29] MEDS: ATORVASTATIN CALCIUM 40 MG TAB PO SCH (20:35)
[2018-09-29] MEDS: traZODone 50 MG TAB PO PRN (20:35)
[2018-09-29] MEDS: MELATONIN 3 MG TAB PO SCH (20:35)
[2018-09-30] MEDS: DICLOFENAC SODIUM 1% 100 GM GEL TP SCH ×5 (03:37→20:27)
[2018-09-30] MEDS: ACETAMINOPHEN 500 MG TAB PO SCH ×3 (06:18→20:27)
[2018-09-30] MEDS: FAMOTIDINE 20 MG TAB PO SCH ×2 (08:41→20:26)
[2018-09-30] MEDS: LOSARTAN POTASSIUM 50 MG TAB PO SCH (08:41)
[2018-09-30] MEDS: FLUoxetine 20 MG CAP PO SCH (08:41)
[2018-09-30] MEDS: APIXABAN 5 MG TAB PO SCH ×2 (08:41→20:26)
[2018-09-30] MEDS: HYDROCHLOROTHIAZIDE 25 MG TAB PO SCH (08:41)
[2018-09-30] MEDS: METOPROLOL SUCCINATE XR 50 MG TAB PO SCH (08:42)
[2018-09-30] MEDS: MAG HYDROX/AL HYDROX/SIMETH 30 ML UDCUP PO PRN (11:12)
[2018-09-30] MEDS: POTASSIUM CL 10 MEQ TAB PO SCH (11:28)
--- NOTE | 2018-09-30 12:34 | SOAPPROG ---
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 * Initial functional independence measure is 25 on 09/01/2017; improved to 37 as of 09/08/2018, to 49 as of 09/15/2018, to 57 as of 09/22/2018, and to 66 as of 2018. He needs assist to get into bed to lift his legs but is standby assist only for getting out of bed. Standby assist with sit to stand to a 22 in surface, minimal assist for a lower surface. Ambulated 30 ft with standby assist to contact guard assist using a quad cane. During home visit was able to neck cruciate 7 steps with his stair glide at the supervision level. Negotiated a curb step with contact guard to minimal assist. Car transfer was done with standby assist. Upper body dressing requires setup and supervision. Lower body dressing requires minimal assist. Shower transfer is done with contact guard assist and chin bathing requires moderate assist. Toilet transfer requires minimal assist * Continue PT and OT to optimize mobility and activities of daily living. Expressive aphasia, severe, and receptive aphasia, moderate. 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 * Has recovered social language. * Improving receptive language skills. Better able to follow conversations. * Continue Speech and Language Pathology. Hypertension. * Blood pressure is below target and he is developing it edema bilateral ankles. Reduced amlodipine to 5 mg q.day starting 09/23/2018. * Worsening edema and weight is up, 09/24/2018. Discontinued amlodipine and initiate hydrochlorothiazide at 12.5 mg QD starting 09/25/2018. * Continue losartan 100 mg daily and metoprolol XR 50 mg daily. * BMP normal except for slight dehydration on 09/27/2018 and 09/29/2018. Edema. Amlodipine may be contributing. Also has history of diastolic dysfunction and mild pulmonary hypertension seen on echocardiogram in 2015. * Initiate diuretic and discontinue amlodipine. Continue daily weights. Episode of tachycardia while in the shower, subsequently recovered, 09/30/2018. * Add on BMP and BNP with normal renal chin and electrolytes; BNP was normal at 74 . Diarrhea, 09/29/2018, unclear etiology. * Had constipation previously. Abdominal x-ray 09/29/2018 ruled out a higher impaction. * Stool test positive for C difficile by PCR. reports that he had antibiotics at [facility] prior to his transfer to inpatient rehabilitation. * Discussed with Infectious Disease on 09/29/2018. Patient has no fever or abdominal pain. Checked CBC, ESR and CRP 09/29/2018 to evaluate for inflammatory state and all was negative except for mild elevation of CRP. Observe for resolution of diarrhea at treat for now. Insomnia. Frequent awakenings to urinate. Postvoid residual was low at 85 so unclear if he would benefit from on alpha wen. * Urinalysis is normal. * Oxybutynin at 2.5 and then titrated to 5 mg at bedtime has not been effective. Condom catheter at night will not stay in place. He is on a toileting schedule but does not move urinate until he is ready. No easy solution to nocturia. Continue efforts of nursing. * Started melatonin 3 mg at HS on 08/31/2018. Started trazodone 50 mg at bedtime on 09/14/2018. * Advised patient to stay up later than 6:00 p.m. before attempting to go to sleep, because if he went to sleep as 6:00 in the evening and slept 8 hr he would then be awake at 2:00 in the morning. Continue current medications. Hypokalemia. Normal magnesium. * Hypertension and hypokalemia with urinary potassium loss raises the possibility of hyperaldosteronism. However plasma aldosterone concentration is below the detectable limit and plasma renin activity is slightly high, ruling out primary aldosteronism. Consider renovascular hypertension. * Improved hydration and normal potassium on [facility] 09/06/2018. Decreased potassium supplement to 20 mEq daily before lunch, as it may be contributing to nausea in the morning. * Normal [facility], 09/20/2018. Hyponatremia also resolved. Dyspepsia. EKG and labs negative for cardiac ischemia. Anemia is resolved. * Trial of famotidine 20 mg twice daily starting 09/10/2018. Nausea. Tramadol may contribute. Will discontinue and initiate oxycodone at low dose, 2.5-5 mg q.4 hours as needed. Change potassium to single dose before lunch each day. Continue ondansetron as needed. * Much improved. Right shoulder pain with possible injury in the hospital. He had x-ray showing no bony defects, so presumably it is a soft tissue injury. History of a shoulder replacement * Began scheduled acetaminophen at 1000 mg q.8 h. and tramadol 50 mg q.6 hours p.r.n. on 08/30/2018. * Added scheduled tramadol 50 mg three times daily starting 08/31/2017. Changed to oxycodone on 09/06/2018; not used since 09/16/2018. * Initiated diclofenac gel, 09/01/2017. Dysphagia. Advanced from dysphagia 2, to dysphagia 3 diet, to regular texture and thin liquids as of 09/15/2018. * Continue Speech and Language Pathology. Slight elevation of D-dimer on labs from 09/09/2018. He has no signs or symptoms of DVT or pulmonary embolus. Though he is at risk due to age, obesity and hemiplegia, he is also on apixaban which is sufficient for prophylaxis. Will not pursue further. Skin tears, right upper extremity. Healing well. Continue Allevyn dressings. Dyslipidemia. Continue atorvastatin at 80 mg p.o. at bedtime. Secondary prevention of CVA, with likely atrial fibrillation or flutter as an etiology. Continue apixaban 5 mg twice daily. Depressed mood and facilitation of neuro recovery. Changed from citalopram to fluoxetine starting 09/06/2017, due to reduced likelihood of prolonging QT together with ondansetron. History of alcohol abuse and possible dependence. He is far enough out that there is no longer any concern for alcohol withdrawal. Macrocytosis him this improved compared to labs when he 1st presented at [facility] on . B12 levels normal.. He has been treated with thiamine; will discontinue starting 09/18/2018. Prophylaxis. He is on apixaban due to likely atrial fibrillation, and this will suffice for DVT prophylaxis. He has no history of GI bleeding, and he is no longer critically ill. Will not initiate a proton pump inhibitor. He is on an H2 wen for dyspepsia symptoms. DISPOSITION: Lives in a 3 level home with his . Goal to return home and to be able to ambulate shorts distances with contact guard to minimal assist. There is no bedroom or bathroom on the main level. Very successful home visit. Did well with stair glide. Will have commode on main level. Good family support and will hire help. Plan for discharge 10/01/2018. Will have home PT, OT , PHYSICIAN OPHTHALMOLOGIST, SOILS TECHNICIAN. Followup. His reports that his primary care provider is Kimberly Mchugh, whom he can see after discharge. Follow up with neurologist Dr. Soria, and with it communications specialist Dr. Rolon for long-term heart rate monitor to evaluate for occult atrial fibrillation. 09/30/18 15:09 Subjective: Had episode of tachycardia and some shortness of breath while in the shower this morning. Now feels better. No cough or dyspnea. After bowel movements times 5-6 yesterday, stool has become semi formed and has had 1 bowel movement today. No abdominal pain, no fevers or chills. Objective: Vital Signs Temp Pulse Resp BP Pulse Ox 36.5 C 90 18 119/86 H 96 09/30/18 08:05 09/30/18 08:05 09/30/18 08:05 09/30/18 08:05 09/30/18 08:05 Microbiology 09/29/18 12:00 Gastrointestinal Tract Panel (PCR) - Final Stool Clostridium Difficile Detected Fecal Leukocyte Stain - Final Laboratory Results 09/29/18 17:00 09/27/18 06:00 09/29/18 09/30/18 10/01/18 05:59 05:59 05:59 Intake Total 1062 1564 690 Output Total 500 200 200 Balance 562 1364 490 PT 15.2 SEC (12.0-15.0) H 09/09/18 15:15 INR 1.18 (0.83-1.16) H 09/09/18 15:15 Physical Exam - Physical Exam General Appearance: WD/WN, alert, no apparent distress Respiratory: normal breath sounds, crackles (Left lower lobe), No rhonchi, No wheezing Cardiac/Chest: regular rate, rhythm, edema (Trace to 1+ bilateral ankles), No JVD, No diastolic murmur, No systolic murmur Skin: normal color, warm/dry Neuro/Psych: alert, normal mood/affect, aphasia (Expressive more so than receptive), motor weakness (Right upper and lower extremity) ICD10 Worksheet Patient Problems: Problems Problem Status Onset Atrial flutter Acute Chest pain Acute atrial flutter Acute
--- NOTE | 2018-09-30 16:01 | PDOREHIP ---
Admission [facility] - Admission - 3 Day Assessment Period Admission Date/Day 1: 08/30/18 Day 2: 08/31/18 Day 3: 09/01/18 - Active Diagnoses Comorbidities and Co-existing Conditions at Admission: 52162. None of the Above Discharge [facility] - Discharge - 3 Day Assessment Period 2 Days Prior to Anticipated Discharge Date: 09/29/18 1 Day Prior to Anticipated Discharge Date: 09/30/18 Anticipated Discharge Date: 10/01/18 - Discharge Skin Conditions Unhealed Pressure Ulcer (1 or more/Stage 1 or >)-Discharge: 0. No # Stage 1 Pressure Ulcers-Discharge: 0 # Stage 2 Pressure Ulcers-Discharge: 0 # of These Stage 2 Pressure Ulcers Present on Admission: 0 # Stage 3 Pressure Ulcers-Discharge: 0 # of These Stage 3 Pressure Ulcers Present on Admission: 0 # Stage 4 Pressure Ulcers-Discharge: 0 # of These Stage 4 Pressure Ulcers Present on Admission: 0 # Unstageable Pressure Ulcers (Non-remove Dress)-Discharge: 0 # These Unstageable Pressure Ulcers (NRD)-Present on Admit: 0 # Unstageable Pressure Ulcers (Slough/Eschar)-Discharge: 0 # These Unstageable Pressure Ulcers(Slough) Present on Admit: 0 # Unstageable Pressure Ulcers (Deep Tissue Injury)-Discharge: 0 # These Unstageable Pressure Ulcers (DTI) Present on Admit: 0
[2018-09-30] MEDS: ATORVASTATIN CALCIUM 40 MG TAB PO SCH (20:26)
[2018-09-30] MEDS: MELATONIN 3 MG TAB PO SCH (20:26)
[2018-09-30] MEDS: traZODone 50 MG TAB PO PRN (20:26)
[2018-10-01] MEDS: DICLOFENAC SODIUM 1% 100 GM GEL TP SCH ×2 (06:00→13:57)
[2018-10-01] MEDS: ACETAMINOPHEN 500 MG TAB PO SCH (06:29)
[2018-10-01 06:40] VITALS: BP 150/86
[2018-10-01] MEDS: HYDROCHLOROTHIAZIDE 25 MG TAB PO SCH (09:02)
[2018-10-01] MEDS: APIXABAN 5 MG TAB PO SCH (09:03)
[2018-10-01] MEDS: FAMOTIDINE 20 MG TAB PO SCH (09:03)
[2018-10-01] MEDS: METOPROLOL SUCCINATE XR 50 MG TAB PO SCH (09:03)
[2018-10-01] MEDS: LOSARTAN POTASSIUM 50 MG TAB PO SCH (09:04)
[2018-10-01] MEDS: MAG HYDROX/AL HYDROX/SIMETH 30 ML UDCUP PO PRN (09:04)
[2018-10-01] MEDS: FLUoxetine 20 MG CAP PO SCH (09:04)
[2018-10-01] MEDS: POTASSIUM CL 10 MEQ TAB PO SCH (13:30)
--- NOTE | 2018-10-01 15:11 | GDS ---
[f rep st] DISCHARGE SUMMARY ADMITTING DIAGNOSIS: Cerebrovascular accident with aphasia and right-sided weakness. DISCHARGE DIAGNOSIS: Cerebrovascular accident with aphasia and right-sided weakness. OTHER DISCHARGE DIAGNOSES: 1. Hypertension. 2. Shoulder degenerative joint disease. COMPLICATIONS: There were none. CONSULTATIONS: There were none. PROCEDURES: There were none. HISTORY AND HOSPITAL COURSE: This patient came to [facility] from [facility]. He initially presented at [facility] on 08/18/2018, with right-sided weakness, aphasia. He received tPA thrombolysis. He was transferred to [facility] for post tPA care as there were no beds available in the ICU at [facility]. He was initially hypertensive and required a nicardipine drip. Brain MRI showed a large acute infarct in the left MCA territory with areas of petechial hemorrhage in the left frontal and parietal lobes. He had an echocardiogram which showed an ejection fraction of 65% to 70% . A bubble study ruled out any cardiac shunting. A feeding tube was placed due to dysphagia and prior aspiration. He was treated for aspiration pneumonia with ceftriaxone and metronidazole He was medically stabilized and ready for inpatient rehabilitation. He had a steady gradual improvement in function. His initial functional independence measure was 25 on 09/01/2018, which is consistent with a low level of chcf function needing considerable assist in all areas of mobility and activities of daily living. By 09/29/2018, his functional independence measure had improved to 66, still in the realm of chcf level of function. He needed assistance for bed mobility to get into bed to lift his legs , but he required only standby assist for getting out of bed. He could do transfers with standby assist to or from a 22 inch high surface but needed minimal assist for lower surfaces. He was able to ambulate 30 feet with standby assist to contact guard assist using a quad cane. There was a home visit in which he was able to negotiate 7 steps using a Stair [place] that the family had installed with only supervision. He was able to negotiate a curb step with contact guard to minimal assist. He could do a car transfer with standby assist. He required setup and supervision for upper body dressing and minimal assist for lower body dressing. He did a shower transfer with contact guard assist and required moderate assist for bathing. Toilet transfer required minimal assist. His aphasia improved considerably on the receptive side but continued to exhibit difficulty with spoken language. This was complicated by apraxia of speech. Regarding hypertension, he was overcorrected initially, on amlodipine 10 mg a day, losartan 100 mg daily and metoprolol XR 50 mg daily. He developed ankle edema. Amlodipine was decreased to 5 mg a day and then discontinued. Hydrochlorothiazide at 12.5 mg daily was started on 09/25/2018. He had normal basic metabolic profiles on 09/27/2018 and 09/29/2018, but for a slightly elevated BUN to creatinine ratio. His edema improved with the discontinuation of amlodipine and initiation of hydrochlorothiazide. He had diarrhea on 09/29/2018. This followed an episode of constipation which was treated with laxative use. He had as many as 5 bowel movements in a day on 09/29/2018. A stool test for GI pathogens was positive for C difficile by PCR. He had had antibiotics at [facility] prior to his transfer to inpatient rehabilitation. He had had previous episodes of C difficile several years back but each time he was quite sick with fevers and abdominal pain and reduced level of function. The positive C difficile test was discussed with the Infectious Disease energy consultant on 09/29/2018. With no fever or abdominal pain, and normal inflammatory tests including no leukocytosis and normal ESR, there was no indication to treat. The positive PCR test was likely due to his prior episodes of Clostridium difficile colitis. He was not treated with antibiotics and his diarrhea resolved. He had insomnia early on in the day. This was treated with trazodone, which was effective. There was frequent urination through the night but he had negligible postvoid residuals so was not felt that he would benefit from an alpha wen. He had right shoulder pain. He may have had an injury in the hospital during a transfer. He had a history of a right-sided shoulder replacement. He had a normal x-ray with no bony defects. He was treated with acetaminophen 1000 mg q.8 hours. He was treated with tramadol and oxycodone over 1-2 weeks, but was no longer using it as of 09/16/18. He was also treated with diclofenac gel, started on 09/11/18. Over the course of his rehabilitation stay, his shoulder pain no longer interfered with therapies. Hypokalemia was noted early in his stay. He had significant urinary potassium loss. He was evaluated by hyperaldosteronism but plasma aldosterone concentration was below the detectable assay and plasma renin activity was slightly high, which ruled out primary aldosteronism. In the differential diagnosis was renal vascular hypertension. Hypokalemia responded to potassium supplementation. DISCHARGE PLAN: Discharge condition is good. ACTIVITY: Ad tegan but he needs assistance for most mobility related tasks and activities of daily living. DIET: Regular. ALLERGIES: There are no new drug allergies. He has an allergy listed to bacille calmette andrew. DISPOSITION: Home with his . They are stair lifts installed and other DME have been obtained that he needs. He will have home PT, OT, GAS TRANSFER OPERATOR, a PRINTING SUPPLIES SALES REPRESENTATIVE for bathing. MEDICATIONS UPON DISCHARGE: 1. Acetaminophen 1000 mg p.o. q.8 hours. 2. Apixaban 5 mg p.o. twice daily. 3. Atorvastatin 80 mg p.o. at bedtime. 4. Citalopram 20 mg p.o. daily. 5. Diclofenac gel 2 g topical to shoulders 4 times daily. 6. Famotidine 20 mg p.o. twice daily. 7. Hydrochlorothiazide 12.5 mg p.o. daily. 8. Losartan 100 mg p.o. daily. 9. Melatonin 3 mg p.o. at bedtime. 10. Metoprolol 50 mg p.o. daily. 11. Polyethylene glycol p.r.n. 12. Potassium chloride 20 mEq daily. 13. Senna 1 tab p.o. twice daily. 14. Trazodone 50 mg p.o. at bedtime. ISSUES TO BE ADDRESSED FOLLOW UP: 1. Mobility and activities of daily living. He will continue PT and OT at home and can follow up with his primary care provider. 2. Expressive much greater than receptive aphasia. He will continue GAS TRANSFER OPERATOR at home and can follow up with primary care. 3. Long-term management of cerebrovascular accident per primary care and he will have followup with neurologist, Dr. Philippe Soria. 4. Cryptogenic etiology of stroke. He will be referred to aerial photogrammetrist, Dr. Wm Rolon for a 30-day event monitor to rule out occult atrial fibrillation. He will continue apixaban. 5. Hypertension with possibility of renal vascular disease. Most likely if his blood pressure is adequately controlled with his current medication, there would be no reason to pursue further workup. Greater than 30 minutes was spent on this discharge including coordination of care, medication reconciliation and counseling patient and family. /[id number]/MODL MTDD
== END 2018-10-01 13:30 | disposition home health service (06) | DRG 57 ==
LOC: BREH 17:18
PROVIDERS: ADMIT Internal Medicine Hospice and Palliative Medicine; ATTEND Internal Medicine Hospice and Palliative Medicine
DX: I69.351 Hemiplegia and hemiparesis following cerebral infarction affecting right dominant side (principal); I69.320 Aphasia following cerebral infarction; I69.391 Dysphagia following cerebral infarction; M25.511 Pain in right shoulder; I10 Essential (primary) hypertension; E78.5 Hyperlipidemia, unspecified; F32.9 Major depressive disorder, single episode, unspecified; F10.11 Alcohol abuse, in remission; Z86.79 Personal history of other diseases of the circulatory system; Z96.611 Presence of right artificial shoulder joint; Z96.669 Presence of unspecified artificial ankle joint; G47.00 Insomnia, unspecified; E87.6 Hypokalemia; R35.0 Frequency of micturition
CPT/HCPCS: 82088-90; 82607-90; 84244-90; 92507-GN; 92523-GN; 92526-GN; 92610-GN; 97110-GO; 97110-GP; 97112-GO; 97112-GP; 97116-GP; 97140-GO; 97162-GP; 97167-GO; 97530-GO; 97530-GP; 97535-GO; 97542-GP; 99366-GN; 99366-GO

== ENCOUNTER 2018-10-02 14:40 | Emergency (ER) | payer OTHER ==
[2018-10-02] MEDS ORDERED: NS 1,000 ML IV ONE ×2 (14:57)
--- NOTE | 2018-10-02 15:03 | EDPHY ---
H & P Stated Complaint: Diarrhea for 1 week - C-diff +. Released from rehab 10/01/18 Time Seen by Provider: 10/02/18 14:57 HPI/ROS: HPI: This is a 78-year-old male who presents with Chief Complaint: Diarrhea for 1 week - C-diff +. Released from rehab 10/01/18 Location: GI Quality: Diarrhea Duration: 1 week Signs and Symptoms: no fever, no nausea, no vomiting, no hematemesis, no blood in stool, no abdominal bloating, + diarrhea, no back pain, no urinary symptoms, no testicular/groin pain, no indigestion, no chest pain, no shortness of breath Timing: Acute, intermittent episodes Severity: Moderate Context: Patient presents accompanied by his with diagnosis of C diff infection sometime this week while at rehab for CVA and right upper extremity hemiparesis. Patient was discharged home yesterday. reports that decision was made while in rehab not to treat him with antibiotics for the C diff. reports that patient is having approximately 5 loose stools daily. Eating and drinking without difficulty. Modifying Factors: None Comment: ROS: A comprehensive 10 system review of systems is otherwise negative aside from elements mentioned in the history of present illness. MEDICAL/SURGICAL/SOCIAL HISTORY: Surgical history: Shoulder replacement, ankle replacement, knee repair, appendectomy, back surgery Medical history: HTN, hyperlipidemia, bladder cancer, kidney stones, atrial flutter. Stroke-Aug 18 2018-chronic right upper extremity weakness. Social history: Retired, . Family history noncontributory. CONSTITUTIONAL: Elderly cooperative white male, at bedside, awake and alert, no obvious distress HEENT: Atraumatic and normocephalic, PERRL, EOMI. Nares patent; no rhinorrhea; no nasal mucosal edema. Tympanic membranes clear. Oropharynx clear, no exudate and moist pink mucosa. Airway patent. No lymphadenopathy. No meningismus. Cardiovascular: Normal S1/S2, regular rate, regular rhythm, without murmur rub or gallop. PULMONARY/CHEST: Symmetrical and nontender. Clear to auscultation bilaterally. Good air movement. No accessory muscle usage. ABDOMEN: Soft, nondistended, nontender, no rebound, no guarding, no peritoneal signs, no masses or organomegaly. No CVAT. EXTREMITIES: 2/2 pulses, strength 5/5, right upper extremity in brace; no deformities, no clubbing, no cyanosis or edema. NEUROLOGICAL: Right upper extremity hemiparesis noted. GCS 15. SKIN: Warm and dry, no erythema. no rash. Good capillary refill. Source: Patient Exam Limitations: No limitations - Personal History Current Tetanus Diphtheria and Acellular Pertussis (TDAP): Yes Tetanus Vaccine Date: - Medical/Surgical History Hx Asthma: No Hx Chronic Respiratory Disease: No Hx Diabetes: No Hx Cardiac Disease: Yes Hx Renal Disease: No Hx Cirrhosis: No Hx Alcoholism: No Hx HIV/AIDS: No Hx Splenectomy or Spleen Trauma: No Other PMH: Shoulder replacement, ankle replacement, knee repair, appendectomy. HTN, hyperlipidemia back surgey,. bladder cancer, kidney stones. atrial flutter. Stroke-Aug 18 2018. - Social History Smoking Status: Never smoked Constitutional: Initial Vital Signs Temperature (C) 36.8 C 10/02/18 14:47 Heart Rate 84 10/02/18 14:47 Respiratory Rate 16 10/02/18 14:47 Blood Pressure 143/89 H 10/02/18 14:47 O2 Sat (%) 96 10/02/18 14:47 O2 Delivery Mode Room Air Allergies/Adverse Reactions: BCG Allergy (Intermediate, Uncoded 11/26/14 14:53) joints swell BACIL[place] CALMETTE CASEY Allergy (Unknown, Uncoded 09/30/18 13:54) Home Medications: Medication Instructions Recorded Acetaminophen [Tylenol ES 500 mg 1,000 mg PO Q8HRS tab 09/30/18 (*)] Apixaban [Eliquis] 5 mg PO BID #60 tab 09/30/18 Atorvastatin Calcium [Lipitor 40 80 mg PO HS #60 tab 09/30/18 mg (*)] Citalopram [CeleXA 20 MG] 20 mg PO DAILY #30 tab 09/30/18 Diclofenac Sodium 1% [Voltaren Gel 2 gm TP QID #1 tube 09/30/18 (*)] Famotidine [Pepcid 20 MG (*)] 20 mg PO BID tab 09/30/18 Hydrochlorothiazide [HCTZ (*)] 12.5 mg PO DAILY #30 tab 09/30/18 Losartan Potassium 100 mg PO DAILY #30 tablet 09/30/18 Melatonin [Melatonin 3 MG (*)] 3 mg PO HS tab 09/30/18 Metoprolol Succinate Xr [Toprol Xl 50 mg PO DAILY #30 tab 09/30/18 50 mg (*)] Potassium Cl [Klor-Con 10 meq (RX)] 20 meq PO DAILY@1130 #30 tab 09/30/18 traZODone [traZODONE 50MG (*)] 50 mg PO HS PRN #30 tab 09/30/18 Vancomycin [Vancomycin (*)] 125 mg PO Q6 10 Days cap 10/02/18 Medical Decision Making ED Course/Re-evaluation: Vital signs reviewed and stable upon arrival. No systemic signs. IV access, laboratory studies, C diff stool study ordered Given 2 L normal saline and p.o. Vancomycin Abdomen is soft and nontender. Doubt surgical process or need for imaging. 1610: Labs reviewed. No signs of leukocytosis/anemia/platelet dysfunction/SAMMIE/ elevated LFTs/electrolyte imbalance/pancreatitis. Patient remained stable and has mild symptoms. and patient went to be treated at home. After discussion with supervising physician, patient is appropriate for outpatient treatment. This patient was seen under the supervision of my secondary supervising physician. I evaluated care for this patient with attending. Discussed this patient with Dr. Branch. Differential Diagnosis: Differential diagnosis includes but is not limited to sepsis, C diff colitis, C diff infection, dehydration, acute kidney injury. - Data Points Laboratory Results: Laboratory Results 10/02/18 15:10 10/02/18 15:10 10/02/18 10/02/18 10/02/18 16:00 15:10 15:10 WBC 7.96 10^3/uL 10^3/uL (3.80-9.50) RBC 4.15 10^6/uL L 10^6/uL (4.40-6.38) Hgb 14.4 g/dL g/dL (13.7-17.5) Hct 43.0 % % (40.0-51.0) MCV 103.6 fL H fL (81.5-99.8) MCH 34.7 pg H pg (27.9-34.1) MCHC 33.5 g/dL g/dL (32.4-36.7) RDW 12.2 % % (11.5-15.2) Plt Count 206 10^3/uL 10^3/uL (150-400) MPV 9.5 fL fL (8.7-11.7) Neut % (Auto) 63.2 % % (39.3-74.2) Lymph % (Auto) 19.6 % % (15.0-45.0) [place] % (Auto) 15.5 % H % (4.5-13.0) Eos % (Auto) 1.0 % % (0.6-7.6) Baso % (Auto) 0.3 % % (0.3-1.7) Nucleat RBC Rel Count 0.0 % % (0.0-0.2) Absolute Neuts (auto) 5.04 10^3/uL 10^3/uL (1.70-6.50) Absolute Lymphs (auto) 1.56 10^3/uL 10^3/uL (1.00-3.00) Absolute Monos (auto) 1.23 10^3/uL H 10^3/uL (0.30-0.80) Absolute Eos (auto) 0.08 10^3/uL 10^3/uL (0.03-0.40) Absolute Basos (auto) 0.02 10^3/uL 10^3/uL (0.02-0.10) Absolute Nucleated RBC 0.00 10^3/uL 10^3/uL (0-0.01) Immature Gran % 0.4 % % (0.0-1.1) Immature Gran # 0.03 10^3/uL 10^3/uL (0.00-0.10) Sodium 138 mEq/L mEq/L (135-145) Potassium 3.7 mEq/L mEq/L (3.5-5.2) Chloride 104 mEq/L mEq/L (97-110) Carbon Dioxide 22 mEq/l mEq/l (22-31) Anion Gap 12 mEq/L mEq/L (6-14) BUN 21 mg/dL mg/dL (7-23) Creatinine 0.8 mg/dL mg/dL (0.7-1.3) Estimated GFR > 60 Glucose 105 mg/dL H mg/dL (70-100) Calcium 9.6 mg/dL mg/dL (8.5-10.4) Total Bilirubin 0.7 mg/dL mg/dL (0.1-1.4) Conjugated Bilirubin 0.3 mg/dL mg/dL (0.0-0.5) Unconjugated Bilirubin 0.4 mg/dL mg/dL (0.0-1.1) AST 31 IU/L IU/L (17-59) ALT 19 IU/L L IU/L (21-72) Alkaline Phosphatase 86 IU/L IU/L (38-126) Total Protein 7.3 g/dL g/dL (6.3-8.2) Albumin 4.0 g/dL g/dL (3.5-5.0) Lipase 193 IU/L IU/L (23-300) C. difficile Tox (PCR) Pending Medications Given: Discontinued Medications Sodium Chloride (Ns) 1,000 mls @ 0 mls/hr IV EDNOW ONE; Wide Open PRN Reason: Protocol Stop: 10/02/18 14:58 Last Admin: 10/02/18 15:14 Dose: 1,000 mls Sodium Chloride (Ns) 1,000 mls @ 0 mls/hr IV EDNOW ONE; Wide Open PRN Reason: Protocol Stop: 10/02/18 14:58 Last Admin: 10/02/18 16:23 Dose: 1,000 mls Departure - Departure Disposition: Home, Routine, Self-Care Clinical Impression: Clostridium difficile diarrhea Condition: Good Instructions: C Diff (Clostridium Difficile) Infection (ED) Additional Instructions: Consume a minimum of 8-10 glasses of water or electrolyte fluid replacement drinks that include Gatorade, Powerade, Pedialyte. Eat a bland diet for the next 48 hours and then slowly advance as tolerated. Take antibiotic as directed. Do not skip a dose. Follow-up with primary care provider in the next 2-3 days. Return at once for any worsening symptoms or concerns. Referrals: Kimberly Mchugh MD [Primary Care Provider] - 2-3 days, call for appt. Prescriptions: Vancomycin [Vancomycin (*)] 125 mg PO Q6 10 Days cap
[2018-10-02 15:28] LABS: PLATELET COUNT 206 10^3/uL (150-400)
[2018-10-02] MEDS ORDERED: VANCOMYCIN 125 MG/2.5 ML UDL PO ONE (17:07)
[2018-10-02 17:29] VITALS: BP 126/77
== END 2018-10-02 17:27 | disposition home or self-care (01) ==
DX: R19.7 Diarrhea, unspecified (principal); E86.9 Volume depletion, unspecified

== ENCOUNTER 2018-10-20 07:09 | Emergency (ER) | payer OTHER ==
[2018-10-20] MEDS ORDERED: NS 500 ML IV ONE (07:29)
[2018-10-20 08:16] LABS: PLATELET COUNT 213 10^3/uL (150-400)
--- NOTE | 2018-10-20 08:48 | EDPHY ---
H & P Time Seen by Provider: 10/20/18 07:26 HPI/ROS: CHIEF COMPLAINT: Diarrhea HISTORY OF PRESENT ILLNESS: Patient with recent history of C difficile colitis diagnosed on the th of this month in this emergency department. He completed a course of oral vancomycin and now returns with increasing stool, unformed onset 3-4 days ago. Patient likely contracted C diff in a rehab facility after having a stroke. He has some right-sided deficits and is still undergoing rehab and has home health. He denies abdominal pain. He has had no nausea or vomiting. He has had no fever. He has been eating and drinking normally. He has had C difficile colitis prior with the 1st episode approximately 20 years ago. He has had 1 round of Flagyl in the past and this recent course of vancomycin was the 1st time he has had this medication. REVIEW OF SYSTEMS: Constitutional: No fever, no chills. Eyes: No discharge. ENT: No sore throat. Cardiovascular: No chest pain, no palpitations. Respiratory: No cough, no shortness of breath. Gastrointestinal: No abdominal pain, no vomiting. Genitourinary: No dysuria. Musculoskeletal: No back pain. Skin: No rashes. Neurological: No headache. General Appearance: Alert, no distress. Eyes: Pupils equal and round no pallor or injection. ENT, Mouth: Mucous membranes moist. Respiratory: There are no retractions, lungs are clear to auscultation. Cardiovascular: Regular rate and rhythm. Gastrointestinal: Abdomen is soft and nontender, no masses, bowel sounds normal. Neurological: Awake and alert, speech deficit secondary to recent stroke. Right-sided weakness to the upper extremity with some edema. No new neurologic deficits. Skin: Warm and dry, no rashes. Musculoskeletal: Neck is supple nontender. Extremities are symmetrical, full range of motion, no edema. Psychiatric: Patient is oriented X 3, there is no agitation. Medical/surgical history: CVA, C difficile colitis, bladder cancer, kidney stones, and a flutter, hyperlipidemia, hypertension. Surgeries includes shoulder replacement, ankle replacement, knee repair, appendectomy, back surgery. Social history: Nonsmoker. Smoking Status: Never smoked Constitutional: Initial Vital Signs Temperature (C) 36.8 C 10/20/18 07:15 Heart Rate 88 10/20/18 07:15 Respiratory Rate 16 10/20/18 07:15 Blood Pressure 122/79 H 10/20/18 07:15 O2 Sat (%) 96 10/20/18 07:15 O2 Delivery Mode Room Air Allergies/Adverse Reactions: BCG Allergy (Intermediate, Uncoded 11/26/14 14:53) joints swell [place] CALMETTE CASEY Allergy (Unknown, Uncoded 09/30/18 13:54) Home Medications: Medication Instructions Recorded Acetaminophen [Tylenol ES 500 mg 1,000 mg PO Q8HRS tab 09/30/18 (*)] Apixaban [Eliquis] 5 mg PO BID #60 tab 09/30/18 Atorvastatin Calcium [Lipitor 40 80 mg PO HS #60 tab 09/30/18 mg (*)] Citalopram [CeleXA 20 MG] 20 mg PO DAILY #30 tab 09/30/18 Diclofenac Sodium 1% [Voltaren Gel 2 gm TP QID #1 tube 09/30/18 (*)] Famotidine [Pepcid 20 MG (*)] 20 mg PO BID tab 09/30/18 Hydrochlorothiazide [HCTZ (*)] 12.5 mg PO DAILY #30 tab 09/30/18 Losartan Potassium 100 mg PO DAILY #30 tablet 09/30/18 Melatonin [Melatonin 3 MG (*)] 3 mg PO HS tab 09/30/18 Metoprolol Succinate Xr [Toprol Xl 50 mg PO DAILY #30 tab 09/30/18 50 mg (*)] Potassium Cl [Klor-Con 10 meq (RX)] 20 meq PO DAILY@1130 #30 tab 09/30/18 traZODone [traZODONE 50MG (*)] 50 mg PO HS PRN #30 tab 09/30/18 Vancomycin [Vancomycin (*)] 125 mg PO Q6 10 Days cap 10/02/18 Medical Decision Making ED Course/Re-evaluation: Discussed with Dr. Faustina Rose, infectious Disease, plan for repeat course of vancomycin, 125 mg four times daily for 14 days. Infectious disease office will call patient for follow-up appointment. Differential Diagnosis: Differential diagnosis includes but is not limited to recurrent C difficile colitis, C difficile colonization, other gastroenteritis. After evaluation likely recurrent C difficile colitis although no abdominal pain, fever or other indications for imaging at this time. After discussion with Infectious Disease plan is to repeat course of oral vancomycin, this time for 14 days. Also patient will be seeing at the infectious disease office. Mild hypokalemia noted and discussed with patient's . They have potassium supplementation at home and will increase dose accordingly. Patient tolerating p.o. Without difficulty so no indication for admission at this time. They understand follow- up and return precautions. Stable for discharge. - Data Points Laboratory Results: Laboratory Results 10/20/18 07:51 10/20/18 07:51 10/20/18 10/20/18 10/20/18 08:30 07:51 07:51 WBC 16.22 10^3/uL H 10^3/uL (3.80-9.50) RBC 4.49 10^6/uL 10^6/uL (4.40-6.38) Hgb 14.9 g/dL g/dL (13.7-17.5) Hct 44.3 % % (40.0-51.0) MCV 98.7 fL fL (81.5-99.8) MCH 33.2 pg pg (27.9-34.1) MCHC 33.6 g/dL g/dL (32.4-36.7) RDW 12.4 % % (11.5-15.2) Plt Count 213 10^3/uL 10^3/uL (150-400) MPV 10.5 fL fL (8.7-11.7) Neut % (Auto) 76.2 % H % (39.3-74.2) Lymph % (Auto) 10.5 % L % (15.0-45.0) [place] % (Auto) 11.9 % % (4.5-13.0) Eos % (Auto) 0.6 % % (0.6-7.6) Baso % (Auto) 0.4 % % (0.3-1.7) Nucleat RBC Rel Count 0.0 % % (0.0-0.2) Absolute Neuts (auto) 12.36 10^3/uL H 10^3/uL (1.70-6.50) Absolute Lymphs (auto) 1.70 10^3/uL 10^3/uL (1.00-3.00) Absolute Monos (auto) 1.93 10^3/uL H 10^3/uL (0.30-0.80) Absolute Eos (auto) 0.10 10^3/uL 10^3/uL (0.03-0.40) Absolute Basos (auto) 0.06 10^3/uL 10^3/uL (0.02-0.10) Absolute Nucleated RBC 0.00 10^3/uL 10^3/uL (0-0.01) Immature Gran % 0.4 % % (0.0-1.1) Immature Gran # 0.06 10^3/uL 10^3/uL (0.00-0.10) RBC/WBC/PLT Morphology TNP Platelet Estimate TNP Sodium 142 mEq/L mEq/L (135-145) Potassium 3.3 mEq/L L mEq/L (3.5-5.2) Chloride 104 mEq/L mEq/L (97-110) Carbon Dioxide 24 mEq/l mEq/l (22-31) Anion Gap 14 mEq/L mEq/L (6-14) BUN 24 mg/dL H mg/dL (7-23) Creatinine 0.9 mg/dL mg/dL (0.7-1.3) Estimated GFR > 60 Glucose 98 mg/dL mg/dL (70-100) Calcium 9.9 mg/dL mg/dL (8.5-10.4) C. difficile Tox (PCR) Pending Medications Given: Discontinued Medications Sodium Chloride (Ns) 500 mls @ 0 mls/hr IV EDNOW ONE; Wide Open PRN Reason: Protocol Stop: 10/20/18 07:30 Last Admin: 10/20/18 07:46 Dose: 500 mls Departure - Departure Clinical Impression: C. difficile diarrhea Condition: Fair Instructions: C Diff (Clostridium Difficile) Infection (ED) Additional Instructions: Take vancomycin as prescribed. Follow up with Dr. Rose, infectious Disease. Call in 24 hr if you have not heard from the office. Increase potassium as discussed. Continue with diet as previously recommended. Return to the emergency department for increasing abdominal pain, fevers, nausea and vomiting or other concerns. Referrals: Kimberly Mchugh MD [Primary Care Provider] - As per Instructions Faustina Rose MD [Medical Doctor] - As per Instructions
[2018-10-20 09:45] VITALS: BP 127/81
== END 2018-10-20 09:45 | disposition home or self-care (01) ==
DX: A04.8 Other specified bacterial intestinal infections (principal); I10 Essential (primary) hypertension; E78.5 Hyperlipidemia, unspecified